=== PATIENT | female | born 1985 | race Caucasian/White ===

== ENCOUNTER 2018-09-30 06:10 | Inpatient (IN) | payer MEDICAID ==
[~2018-09-30] VITALS: Ht 160 cm; Wt 100.3 kg
[2018-09-30] VITALS (12 sets, daily range): BP systolic 110–129; BP diastolic 72–86; PULSE 96–135; RESP 14–21; Ht 160 cm; Wt 100.3 kg
[~2018-09-30 06:10] MED LIST: ACET-141 PO; ACET1TAB40 PO; NITR-58 PO; PNV1TABL43 PO
[2018-09-30] MEDS ORDERED: LACTATED RINGER'S 1,000 ML IV SCH ×2 (06:27→17:30)
[2018-09-30] MEDS ORDERED: CARBOPROST 250 MCG INJ IM PRN ×2 (06:30→10:00)
[2018-09-30] MEDS ORDERED: MISOPROSTOL 200 MCG TAB PR PRN ×2 (06:30→10:00)
[2018-09-30] MEDS ORDERED: OXYTOCIN 30 UNITS/LR 500 ML IV SCH ×2 (06:30→09:51)
[2018-09-30] MEDS ORDERED: CEFAZOLIN 2 GM/50 ML (PMX) 50 ML IVPB SCH (06:30)
[2018-09-30] MEDS ORDERED: METHYLERGONOVINE 0.2 MG INJ IM PRN ×2 (06:30→10:00)
[2018-09-30] MEDS ORDERED: OXYTOCIN 30 UNITS/LR 500 ML IV PRN ×2 (06:30→10:00)
[2018-09-30] MEDS ORDERED: DEXAMETHASONE 4 MG/ML 1 ML INJ ONE (07:00)
[2018-09-30] MEDS ORDERED: LIDOCAINE 2% (SDV) 5 ML INJ ONE (07:00)
[2018-09-30] MEDS ORDERED: ONDANSETRON 4 MG INJ ONE (07:00)
[2018-09-30] MEDS ORDERED: METOCLOPRAMIDE 10 MG INJ ONE ×2 (07:00→08:23)
[2018-09-30] MEDS ORDERED: SEVOFLURANE 15 MIN ONE (07:00)
--- NOTE | 2018-09-30 07:22 | PREAC ---
Date/Time of Note Date/Time of Note DATE: 09/30/18 TIME: 07:21 Anesthesia Eval and Record Evaluation Time Pre-Procedure Interview DATE: 09/30/18 TIME: 07:21 Age 33 Sex female NPO: 8 hrs Preoperative diagnosis repeat sterlization Planned procedure c section BTL Past Medical History Past Medical History: Includes GI: Obesity Surgery & Anesthesia Issues No known issue Meds Anticoagulation: No Beta Yasmin within 24 hr: No Reason Beta Yasmin not given: Pt. not on B-Yasmin Active Scripts Acetaminophen-Codeine* (Acetaminophen-Cod #3*) 300-30 Mg Tab, 1 TAB PO Q4H PRN for PAIN, #10 TAB Prov:MICHOACANO DENTON MD 12/14/14 Acetaminophen* (Acetaminophen*) 500 MG Extra Strength Tablet, 500-1000 MG PO Q6H PRN for PAIN AND OR ELEVATED TEMP, #20 TAB Prov:JOHN GASTELUM PA-C 12/09/14 Nitrofurantoin Monohyd Macrocr* (Macrobid*) 100 Mg Capsr, 100 MG PO BID for 7 Days, CAP Prov:JOHN GASTELUM PA-C 12/09/14 Reported Medications Vit/Fe Fumarate/Fa* ( Vitamin Tablet*) 1 Tab Tablet, 1 TAB PO DAILY 08/05/13 Current Medications Lactated Ringer's 1,000 ml @ 125 mls/hr Q8H IV ; Start 09/30/18 at 06:27 Cefazolin Sodium/ Dextrose 50 ml @ 100 mls/hr ONCE IVPB ; Start 09/30/18 at 06:30 Oxytocin/Lactated Ringer's 500 ml @ 125 mls/hr POST IV ; Start 09/30/18 at 06:30 Oxytocin/Lactated Ringer's 500 ml @ 0 mls/hr ONCE PRN IV .VAGINAL BLEEDING; Start 09/30/18 at 06:30 Methylergonovine Maleate (Methergine) 0.2 mg ONCE PRN IM .VAGINAL BLEEDING; Start 09/30/18 at 06:30 Carboprost Tromethamine (Hemabate) 250 mcg ONCE PRN IM .VAGINAL BLEEDING; Start 09/30/18 at 06:30 Misoprostol (Cytotec) 1,000 mcg ONCE PRN VT .VAGINAL BLEEDING; Start 3/25/19 at 06:30 Meds reviewed: Yes Allergies Coded Allergies: No Known Allergy (Unverified , 12/14/14) Allergies Reviewed: Yes Labs/Studies Labs Reviewed: Reviewed by anesthesiologist test: Positive Studies: ECG (n/a), CXR (n/a) Pre-procedure Exam Last vitals Vital Signs Date Temp Pulse Resp B/P (MAP) Pulse Ox O2 O2 Flow FiO2 Time Delivery Rate 09/30/18 98.2 96 16 119/82 Room Air 06:35 (94) Airway: Adequate mouth opening Mallampati: Mallampati I Teeth: Normal Lung: Normal Heart: Normal ASA Physical Status ASA physical status: 2 Emergency: None Planned Anesthetic Neuraxial: Epidural Pre-operative Attestations Prior to commencing anesthesia and surgery, the patient was re-evaluated, there was verification of: *The patient's identity *The results of appropriate recent lab work and preoperative vital signs *The above evaluation not changing prior to induction *Anesthetic plan, risk benefits, alternative and complications discussed with patient/family; questions answered; patient/family understands, accepts and wishes to proceed. CELINE OLVERA MD Sep 30, 2018 07:22
[2018-09-30] MEDS ORDERED: MEPERIDINE 25 MG INJ IV PRN (07:30)
[2018-09-30] MEDS ORDERED: KETOROLAC 30 MG INJ IV PRN ×2 (07:30→09:30)
[2018-09-30] MEDS ORDERED: DIPHENHYDRAMINE 50 MG INJ IV PRN ×4 (07:30→14:30)
[2018-09-30] MEDS ORDERED: morphine (1 MG/ML) 10ML SYRINGE IV PRN ×3 (07:30)
[2018-09-30] MEDS ORDERED: ONDANSETRON 4 MG INJ IV PRN ×4 (07:30→14:30)
[2018-09-30] MEDS ORDERED: morphine SULFATE/PF (10 MG/10 ML) INJ ONE (08:23)
[2018-09-30] MEDS ORDERED: NALOXONE (0.4 MG/ML) INJ IV PRN ×2 (09:30→14:30)
[2018-09-30] MEDS ORDERED: morphine 2 MG INJ IV PRN ×3 (09:30)
[2018-09-30] MEDS ORDERED: OXYTOCIN 30 UNITS/LR 500 ML IV ONE (09:40)
--- NOTE | 2018-09-30 09:51 | OPPN ---
Date/Time of Note Date/Time of Note DATE: 09/30/18 TIME: 09:43 Operative Report Planned Procedure Procedure date Sep 30, 2018 Procedure(s) repeat low transverse CD, bilateral tubal ligation (stanislaw method) , lysis of adhesions Performed by see signature line Credit Verifier: BENNIE ORNELAS MD 2nd Credit Verifier none Pre-procedure diagnosis iup at 39 wks ga, previous CD X 3 desire elective repeat CD with bilateral tubal ligation [id number] Anesthesia Type: Alnyw9y spinal Post-Procedure Post-procedure diagnosis same Findings a viable male 8/9 weight 8lb 7 oz. normal uterus tubes and ovaries. adhesion between anterior uterus and omentum Estimated Blood Loss: 500 - 600 mls (500) Specimen(s) portion of the right and left fallopian tube Grafts/Implant(s) none Complication(s) none SADI CHAPARRO MD Sep 30, 2018 09:50
[2018-09-30] MEDS ORDERED: NACL 0.9% 3 ML SYG IV SCH (10:00)
[2018-09-30] MEDS ORDERED: OXYCODONE/ACETAMINOPHEN (5/325) TAB PO PRN ×2 (10:00)
[2018-09-30] MEDS ORDERED: LANOLIN HPA 1 PKT TOP PRN (10:00)
[2018-09-30] MEDS ORDERED: morphine 4 MG/ML VIAL ONE (10:47)
[2018-09-30] MEDS ORDERED: IOHEXOL 14.3 MG(I)/ML (ADULT) BTL PO ONE (11:00)
[2018-09-30] MEDS ORDERED: METHYLENE BLUE 50 MG/10 ML AMPUL IV STA (11:19)
[2018-09-30] MEDS ORDERED: ETOMIDATE 20 MG INJ ONE (11:40)
[2018-09-30] MEDS ORDERED: SUCCINYLCHOLINE CHLORIDE 100 MG/5 ML SYG IV ONE (11:40)
[2018-09-30] MEDS ORDERED: FENTAnyl 50 MCG/ML VIAL ONE (11:47)
[2018-09-30] MEDS ORDERED: ROPIVACAINE 0.5 % 30 ML VIAL ONE (12:41)
--- NOTE | 2018-09-30 13:03 | PREAC ---
Date/Time of Note Date/Time of Note DATE: 09/30/18 TIME: 13:01 Anesthesia Eval and Record Evaluation Time Pre-Procedure Interview DATE: 09/30/18 TIME: 1140 PT RUSHED TO OR IN EMERGENT SITUATION, preop eval completed after patient regained hemodynamic stability Age 33 Sex female NPO: 8 hrs Preoperative diagnosis POST OP HEMORRHAGE Planned procedure EMERGENT EXPLORATORY LAPAROTOMY Past Medical History Past Medical History: Includes Cardio: Other (SEVERE HYPOTENSION) Renal: Other (HEMATURIA IN POST-OP MILLER CATHETER) Heme: Anemia Surgery & Anesthesia Issues Hx of difficult intubation, Significant blood loss Meds Anticoagulation: No Beta Yasmin within 24 hr: No Reason Beta Yasmin not given: Pt. not on B-Yasmin Active Scripts Acetaminophen-Codeine* (Acetaminophen-Cod #3*) 300-30 Mg Tab, 1 TAB PO Q4H PRN for PAIN, #10 TAB Prov:MICHOACANO DENTON MD 12/14/14 Acetaminophen* (Acetaminophen*) 500 MG Extra Strength Tablet, 500-1000 MG PO Q6H PRN for PAIN AND OR ELEVATED TEMP, #20 TAB Prov:JOHN GASTELUM PA-C 12/09/14 Nitrofurantoin Monohyd Macrocr* (Macrobid*) 100 Mg Capsr, 100 MG PO BID for 7 Days, CAP Prov:JOHN GASTELUM PA-C 12/09/14 Reported Medications Vit/Fe Fumarate/Fa* ( Vitamin Tablet*) 1 Tab Tablet, 1 TAB PO DAILY 08/05/13 Current Medications Lactated Ringer's 1,000 ml @ 125 mls/hr Q8H IV ; Start 09/30/18 at 06:27 Cefazolin Sodium/ Dextrose 50 ml @ 100 mls/hr ONCE IVPB ; Start 09/30/18 at 06:30 Oxytocin/Lactated Ringer's 500 ml @ 125 mls/hr POST IV ; Start 09/30/18 at 06:30 Naloxone HCl (Narcan) 0.1 mg Q2M PRN IV .RESP RATE; Start 09/30/18 at 09:30; Stop 10/01/18 at 09:29 Ketorolac Tromethamine (Toradol) 30 mg Q6H PRN IV PAIN AFTER CSECTION; Start 09/30/18 at 09:30; Stop 10/01/18 at 09:29 Morphine Sulfate (morphine) 3 mg Q3 PRN IV .BREAKTHROUGH PAIN; Start 09/30/18 at 09:30; Stop 10/01/18 at 09:29 Morphine Sulfate (morphine) 2 mg Q3H PRN IV .PAIN 1-5; Start 09/30/18 at 09:30; Stop 10/01/18 at 09:29 Morphine Sulfate (morphine) 4 mg Q3H PRN IV .PAIN 6-10; Start 09/30/18 at 09:30; Stop 10/01/18 at 09:29 Diphenhydramine HCl (Benadryl) 25 mg Q6H PRN IV .ITCHING; Start 09/30/18 at 09:30; Stop 10/01/18 at 09:29 Ondansetron HCl (Zofran Inj) 4 mg Q6H PRN IV .NAUSEA/VOMITING; Start 09/30/18 at 09:30; Stop 10/01/18 at 09:29 IV Flush (NS 3 ml) 3 ml PER PROTOCOL IV ; Start 09/30/18 at 10:00 Cefazolin Sodium/ Dextrose 50 ml @ 100 mls/hr Q8H IVPB ; Start 09/30/18 at 15:00; Stop 10/01/18 at 07:29 Oxytocin/Lactated Ringer's 500 ml @ 50 mls/hr Q10H IV ; Start 09/30/18 at 09:51; Stop 09/30/18 at 19:50 Oxycodone/ Acetaminophen (Percocet (5/ 325)) 1 tab Q4H PRN PO .PAIN 4-6; Start 09/30/18 at 10:00 Oxycodone/ Acetaminophen (Percocet (5/ 325)) 2 tab Q4H PRN PO .PAIN 7-10; Start 09/30/18 at 10:00 Ibuprofen (Motrin) 600 mg Q6 PO ; Start 10/01/18 at 12:00 Simethicone (Mylicon) 160 mg Q8H PRN PO .GAS; Start 09/30/18 at 10:00 Lanolin (Lanolin Hpa) 1 applic BEDSIDE MEDICATION PRN TOP .NIPPLES; Start 09/30/18 at 10:00 Oxytocin/Lactated Ringer's 500 ml @ 0 mls/hr ONCE PRN IV .VAGINAL BLEEDING; Start 09/30/18 at 10:00 Methylergonovine Maleate (Methergine) 0.2 mg ONCE PRN IM .VAGINAL BLEEDING; Start 09/30/18 at 10:00 Carboprost Tromethamine (Hemabate) 250 mcg ONCE PRN IM .VAGINAL BLEEDING; Start 09/30/18 at 10:00 Misoprostol (Cytotec) 1,000 mcg ONCE PRN NC .VAGINAL BLEEDING; Start 09/30/18 at 10:00 Meds reviewed: Yes Allergies Coded Allergies: No Known Allergy (Unverified , 12/14/14) Allergies Reviewed: Yes Labs/Studies Labs Reviewed: Reviewed by anesthesiologist Result Diagram: 09/30/18 1113 Laboratory Tests 09/30/18 11:13 Blood Bank Test 09/30/18 06:58 Antibody Screen NEGATIVE Blood Product Summary Counts Blood Type O POSITIVE Crossmatch Red Blood Cells Rh Immune Globulin Candidate NO test: Negative Pre-procedure Exam Last vitals Vital Signs Date Temp Pulse Resp B/P (MAP) Pulse Ox O2 O2 Flow FiO2 Time Delivery Rate 09/30/18 98.2 96 16 119/82 Room Air 06:35 (94) Airway: Adequate mouth opening, Adequate thyromental dist Mallampati: Mallampati III Teeth: Normal Lung: Normal Heart: Normal ASA Physical Status ASA physical status: 3 Emergency: E Planned Anesthetic General/MAC: ETT Planned Pain Management Single shot nerve block, Parenteral pain med, Other neuraxial med Pre-operative Attestations Prior to commencing anesthesia and surgery, the patient was re-evaluated, there was verification of: *The patient's identity *The results of appropriate recent lab work and preoperative vital signs *The above evaluation not changing prior to induction *Anesthetic plan, risk benefits, alternative and complications discussed with patient/family; questions answered; patient/family understands, accepts and wishes to proceed. ALEX ALVARADO MD Sep 30, 2018 13:03
[2018-09-30] MEDS ORDERED: CIPROFLOXACIN 400MG/D5W 200 ML IVPB ONE (13:30)
--- NOTE | 2018-09-30 13:41 | OPPN ---
Date/Time of Note Date/Time of Note DATE: 09/30/18 TIME: 13:36 Operative Report Planned Procedure Procedure date Sep 30, 2018 Procedure(s) exploratory laparotomy, evacuation of left broad ligament hematoma, bladder perforation repair Performed by see signature line Steam Hammer Operator: BENNIE ORNELAS MD 2nd Steam Hammer Operator Intraoperative urology consult with Dr. Allen Anesthesiologist: ALEX ALVARADO MD Pre-procedure diagnosis s/p cd X 4 with btl, hematuria, unstable vital size, concerned for internal bleeding [id number] Anesthesia Type: [id number] general Post-Procedure Post-procedure diagnosis same Findings Large left broad ligament hematoma with bladder perforation Estimated Blood Loss: 500 - 600 mls (500) Specimen(s) none Grafts/Implant(s) none Complication(s) none SADI CHAPARRO MD Sep 30, 2018 13:41
--- NOTE | 2018-09-30 14:21 | OPR ---
Date/Time of Note Date/Time of Note DATE: 09/30/18 TIME: 14:14 Operative Report Procedure Date: Sep 30, 2018 Preoperative Diagnosis Bladder injury during Postoperative Diagnosis Same Operation/Procedure Performed Cystorrhaphy Surgeon see signature line Plycor Operator DR Velásquez and Dr ORNELAS Anesthesia Type: general Anesthesiologist: ALEX ALVARADO MD Estimated Blood Loss: other (As per the continuous improvement manager's) Transfusion none Specimen None Grafts/Implants none Complications none Pt Condition Post Procedure: stable Indications Bladder injury during Procedure Description I was called to the operating room in the labor and delivery because this patient has undergone a earlier today and she was bleeding and her Fol ey catheter. She was taken back to the operating room and a big hematoma was evacuated and I was called to check her bladder because she was having bleeding in her Norton catheter and instillation of indigo carmine in the bladder did extravasate in the operative field. Upon inspection of the bladder the opening was visualized. Allises clamps were put on the edges. I put my finger and felt the balloon inside the bladder. Then I did close the opening using 2-0 Vicryl running interlocked suture as a first layer and 2-0 Vicryl [id number] interrupted sutures. I did free the bladder from the adhesions to the uterus posteriorly. Then the rest of the procedure and the closure was done by the obstetricians. The patient was transferred back to the ICU in a stable condition. FAYE CALHOUN MD Sep 30, 2018 14:21
[2018-09-30] MEDS ORDERED: LEVALBUTEROL (NEB) 1.25 MG/0.5 ML AMP HHN PRN (14:30)
[2018-09-30] MEDS ORDERED: FENTAnyl 50 MCG/ML VIAL IV PRN ×2 (14:30)
[2018-09-30] MEDS ORDERED: ZOLPIDEM 5 MG TAB PO PRN (14:30)
[2018-09-30] MEDS ORDERED: ALBUMIN HUMAN 5% 250 ML IV PRN (14:30)
[2018-09-30] MEDS ORDERED: MIDAZOLAM 1 MG/ML 2 ML INJ IV PRN (14:30)
[2018-09-30] MEDS ORDERED: ACETAMINOPHEN 500 MG TAB PO PRN (14:30)
[2018-09-30] MEDS ORDERED: IPRATROPIUM (NEB) 0.5 MG/2.5 ML AMP HHN PRN (14:30)
[2018-09-30] MEDS ORDERED: HYDROmorphONE 0.5 MG/0.5 ML SYG IV PRN ×5 (14:30)
[2018-09-30] MEDS: CEFAZOLIN 2 GM/50 ML (PMX) 50 ML IVPB SCH (15:02)
--- NOTE | 2018-09-30 15:08 | NSTRPT ---
NST Information Datetime Report Generated by CPN: 09/30/2018 15:08 Datetime: 09/26/2018 13:43 NST Information EGA: 38.5 Test Number: 6 Time on Monitor: 09/26/2018 14:29 Time off Monitor: 09/26/2018 14:52 NST Duration (Min): 23 Reason for NST: Other Reason for NST Other: Advanced maternal age Test and Monitor Explained: Monitor Explained; Test Explained; Verbalized Understanding Pulse: 96 Resp: 18 SBP: 109 DBP: 69 Test Evaluation NST Interventions: None Patient States Movement: Present Contraction Frequency: none FHR Baseline : 140 Variability: Moderate 6-25bpm Accelerations: 15X15 Decelerations: None FHR Category: Category I NST Results: Reactive Comments: To [facility]/S. SLIM 12.7. BREECH Pt scheduled for CS 09/30 Electronically Signed By E-Signature: with User ID: [id number] Datetime: 09/23/2018 13:54 NST Information EGA: 38.2 NST Duration (Min): 35 Datetime: 09/19/2018 14:34 NST Information EGA: 37.5 NST Duration (Min): 28 Datetime: 09/16/2018 14:31 NST Information EGA: 37.2 NST Duration (Min): 28 Datetime: 09/12/2018 14:45 NST Information EGA: 36.5 NST Duration (Min): 35 Datetime: 09/02/2018 14:36 NST Information EGA: 35.2 NST Duration (Min): 42 Datetime: 08/29/2018 15:07 NST Information EGA: 34.5 NST Duration (Min): 35 Datetime: 08/29/2018 15:00 NST Duration (Min): 36
--- NOTE | 2018-09-30 16:49 | PAC ---
Date/Time of Note Date/Time of Note DATE: 09/30/18 TIME: 16:49 Post-Anesthesia Notes Post-Anesthesia Note Last documented vital signs Vital Signs Date Temp Pulse Resp B/P (MAP) Pulse Ox O2 O2 Flow FiO2 Time Delivery Rate 09/30/18 98.1 114 14 129/78 96 16:00 (95) 09/30/18 Mask 10.0 14:00 Activity: WNL Respiratory function: WNL Cardiovascular function: WNL Mental status: Baseline Pain reasonably controlled: Yes Hydration appropriate: Yes Nausea/Vomiting absent: Yes ALEX ALVARADO MD Sep 30, 2018 16:49
--- NOTE | 2018-09-30 17:48 | CONS ---
Assessment/Plan Assessment/Plan Assessment/Plan (Daily) Assessment and plan: 33-year female status post and tubal ligation with subsequent postop hematuria earlier today, status post surgical bladder repair. #Postop hematuria: Again secondary to bladder laceration status post postop bladder repair by urologist working with [employer] doctor in the OR -Monitor for any further hematuria, CBC daily -Follow-up postop recommendations from urology and [employer] team # and tubal ligation: Occurred earlier today, see above for the occurring postop complications. Now improving, came to the ICU on oxytocin drip which will likely be discontinued upon discussion with ICU nurse and [employer] team -Monitor vital signs very carefully for now, postop care per primary team [employer] recommendations including pain control medications, labs, etc. We will continue to follow along with you Critical care time spent on patient care today equals 45 minutes Consultation Date/Type/Reason Admit Date/Time Sep 30, 2018 at 06:10 Type of Consult Medical Reason for Consultation Postop hematuria Date/Time of Note DATE: 09/30/18 TIME: 17:25 Hx of Present Illness 33-year female past medical history of x4 including most recent C- section and tubal ligation performed earlier today, who has been admitted to ICU after postop bleeding and hematuria. Most of the information is obtained upon discussion with the primary [employer] team as patient is presently unable to provide full H PI at this time. Apparently after the and tubal ligation, patient had hematuria and low blood pressure. Patient was also apparently tachycardic afterwards so the decision was made by the [employer] team to take the patient back in to the OR for exploratory laparotomy. Here they found a bladder laceration and urology team was called to assist in the OR and they performed Cystorrhaphy (bladder repair). Patient is presently in the intensive care unit on oxytocin drip, but this likely will be stopped now since the source of the bleed is apparently from the bladder. Of note patient also received 2 unit PRBC transfusion earlier today as well. Past Medical History Medical History: no pertinent history Home Meds Active Scripts Acetaminophen-Codeine* (Acetaminophen-Cod #3*) 300-30 Mg Tab, 1 TAB PO Q4H PRN for PAIN, #10 TAB Prov:MICHOACANO DENTON MD 12/14/14 Acetaminophen* (Acetaminophen*) 500 MG Extra Strength Tablet, 500-1000 MG PO Q6H PRN for PAIN AND OR ELEVATED TEMP, #20 TAB Prov:JOHN GASTELUM PA-C 12/09/14 Nitrofurantoin Monohyd Macrocr* (Macrobid*) 100 Mg Capsr, 100 MG PO BID for 7 Days, CAP Prov:JOHN GASTELUM PA-C 12/09/14 Reported Medications Vit/Fe Fumarate/Fa* ( Vitamin Tablet*) 1 Tab Tablet, 1 TAB PO DAILY 08/05/13 Medications Current Medications Cefazolin Sodium/ Dextrose 50 ml @ 100 mls/hr ONCE IVPB ; Start 09/30/18 at 06:30 Naloxone HCl (Narcan) 0.1 mg Q2M PRN IV .RESP RATE; Start 09/30/18 at 09:30; Stop 10/01/18 at 09:29 Ketorolac Tromethamine (Toradol) 30 mg Q6H PRN IV PAIN AFTER CSECTION; Start 09/30/18 at 09:30; Stop 10/01/18 at 09:29 Diphenhydramine HCl (Benadryl) 25 mg Q6H PRN IV .ITCHING; Start 09/30/18 at 09:30; Stop 10/01/18 at 09:29 Ondansetron HCl (Zofran Inj) 4 mg Q6H PRN IV .NAUSEA/VOMITING; Start 09/30/18 at 09:30; Stop 10/01/18 at 09:29 IV Flush (NS 3 ml) 3 ml PER PROTOCOL IV ; Start 09/30/18 at 10:00 Cefazolin Sodium/ Dextrose 50 ml @ 100 mls/hr Q8H IVPB Last administered on 09/30/18at 15:02; Admin Dose 100 MLS/HR; Start 09/30/18 at 15:00; Stop 10/01/18 at 07:29 Ibuprofen (Motrin) 600 mg Q6 PO ; Start 10/01/18 at 12:00 Simethicone (Mylicon) 160 mg Q8H PRN PO .GAS; Start 09/30/18 at 10:00 Lanolin (Lanolin Hpa) 1 applic BEDSIDE MEDICATION PRN TOP .NIPPLES; Start 09/30/18 at 10:00 Oxytocin/Lactated Ringer's 500 ml @ 0 mls/hr ONCE PRN IV .VAGINAL BLEEDING; Start 09/30/18 at 10:00 Methylergonovine Maleate (Methergine) 0.2 mg ONCE PRN IM .VAGINAL BLEEDING; Start 09/30/18 at 10:00 Carboprost Tromethamine (Hemabate) 250 mcg ONCE PRN IM .VAGINAL BLEEDING; Start 09/30/18 at 10:00 Misoprostol (Cytotec) 1,000 mcg ONCE PRN IN .VAGINAL BLEEDING; Start 09/30/18 at 10:00 Naloxone HCl (Narcan) 0.2 mg PRN PRN IV RR < 8; Start 09/30/18 at 14:30 Hydromorphone HCl (Dilaudid HEAD IRRIGATOR) Q4PCA IV ; Start 09/30/18 at 14:30 Acetaminophen (Tylenol Tab) 500 mg Q4H PRN PO PAIN LEVEL 1-5; Start 09/30/18 at 14:30 Acetaminophen/ Hydrocodone Bitart ([place] (5/325)) 1 tab Q4H PRN PO PAIN LEVEL 1-5; Start 09/30/18 at 14:30 Hydromorphone HCl (Dilaudid) 0.2 mg Q4H PRN IV PAIN LEVEL 1-5; Start 09/30/18 at 14:30 Hydromorphone HCl (Dilaudid) 0.4 mg Q4H PRN IV PAIN LEVEL 6-10; Start 09/30/18 at 14:30 Ondansetron HCl (Zofran Inj) 4 mg Q6H PRN IV NAUSEA AND/OR VOMITING; Start 09/30/18 at 14:30 Zolpidem Tartrate (Ambien) 5 mg HS MAY REPEAT X 1 PRN PO .INSOMNIA; Start 09/30/18 at 14:30 Diphenhydramine HCl (Benadryl) 25 mg Q6H PRN IV .ITCHING; Start 09/30/18 at 14:30 Allergies: Coded Allergies: No Known Allergy (Unverified , 12/14/14) Past Surgical History Past Surgical Hx: other ( x4, tubal ligation) Social History Alcohol Use: none Smoking Status: Never smoker Drug Use: none Exam/Review of Systems Exam Vitals Vital Signs Date Temp Pulse Resp B/P (MAP) Pulse Ox O2 O2 Flow FiO2 Time Delivery Rate 09/30/18 98.1 114 14 129/78 96 16:00 (95) 09/30/18 Mask 10.0 14:00 Exam GENERAL: lying in bed, NAD HEENT: Pupils equal, round, reactive to light. Extraocular muscles intact. NECK: Supple. No thyromegaly. LUNGS: Clear to auscultation bilaterally. CARDIOVASCULAR: S1 and S2 heard. No rubs or gallops. ABDOMEN: Soft, nondistended. Slightly decreased bowel sounds, bandages in place. MUSCULOSKELETAL: No lower extremity edema bilaterally. NEUROLOGIC: No focal deficits. Results Result Diagram: 09/30/18 1641 Results 24hrs Laboratory Tests Test 09/30/18 06:58 09/30/18 11:13 09/30/18 16:41 White Blood Count 11.7 #H 18.6 #H 18.9 H Red Blood Count 3.94 L 3.07 #L 3.18 L Hemoglobin 12.1 9.5 #L 9.8 L Hematocrit 36.8 L 29.2 #L 29.7 L Mean Corpuscular Volume 93.4 95.1 93.4 Mean Corpuscular Hemoglobin 30.7 30.9 30.8 Mean Corpuscular Hemoglobin Concent 32.9 32.5 33.0 Red Cell Distribution Width 13.6 13.4 13.9 Platelet Count 307 322 176 # Mean Platelet Volume 10.3 # 9.7 10.7 H Immature Granulocytes % 1.600 H 1.600 H 1.300 H Neutrophils % 68.2 75.6 81.8 H Lymphocytes % 19.8 14.7 L 8.5 L Monocytes % 8.2 7.2 8.0 Eosinophils % 1.7 0.6 0.1 Basophils % 0.5 0.3 0.3 Nucleated Red Blood Cells % 0.0 0.0 0.0 Immature Granulocytes # 0.190 H 0.290 H 0.250 H Neutrophils # 8.0 H 14.0 H 15.4 H Lymphocytes # 2.3 2.7 1.6 Monocytes # 1.0 H 1.3 H 1.5 H Eosinophils # 0.2 0.1 0.0 Basophils # 0.1 0.1 0.1 Nucleated Red Blood Cells # 0.0 0.0 0.0 Prothrombin Time 11.9 Prothrombin Time Ratio 0.9 INR International Normalized Ratio 0.87 Activated Partial Thromboplast Time 27.3 Hepatitis B Surface Antigen NEGATIVE Medications Medication Current Medications Cefazolin Sodium/ Dextrose 50 ml @ 100 mls/hr ONCE IVPB ; Start 09/30/18 at 06:30 Naloxone HCl (Narcan) 0.1 mg Q2M PRN IV .RESP RATE; Start 09/30/18 at 09:30; Stop 10/01/18 at 09:29 Ketorolac Tromethamine (Toradol) 30 mg Q6H PRN IV PAIN AFTER CSECTION; Start 09/30/18 at 09:30; Stop 10/01/18 at 09:29 Diphenhydramine HCl (Benadryl) 25 mg Q6H PRN IV .ITCHING; Start 09/30/18 at 09:30; Stop 10/01/18 at 09:29 Ondansetron HCl (Zofran Inj) 4 mg Q6H PRN IV .NAUSEA/VOMITING; Start 09/30/18 at 09:30; Stop 10/01/18 at 09:29 IV Flush (NS 3 ml) 3 ml PER PROTOCOL IV ; Start 09/30/18 at 10:00 Cefazolin Sodium/ Dextrose 50 ml @ 100 mls/hr Q8H IVPB Last administered on 09/30/18at 15:02; Admin Dose 100 MLS/HR; Start 09/30/18 at 15:00; Stop 10/01/18 at 07:29 Ibuprofen (Motrin) 600 mg Q6 PO ; Start 10/01/18 at 12:00 Simethicone (Mylicon) 160 mg Q8H PRN PO .GAS; Start 09/30/18 at 10:00 Lanolin (Lanolin Hpa) 1 applic BEDSIDE MEDICATION PRN TOP .NIPPLES; Start 09/30/18 at 10:00 Oxytocin/Lactated Ringer's 500 ml @ 0 mls/hr ONCE PRN IV .VAGINAL BLEEDING; Start 09/30/18 at 10:00 Methylergonovine Maleate (Methergine) 0.2 mg ONCE PRN IM .VAGINAL BLEEDING; Start 09/30/18 at 10:00 Carboprost Tromethamine (Hemabate) 250 mcg ONCE PRN IM .VAGINAL BLEEDING; Start 09/30/18 at 10:00 Misoprostol (Cytotec) 1,000 mcg ONCE PRN IN .VAGINAL BLEEDING; Start 09/30/18 at 10:00 Naloxone HCl (Narcan) 0.2 mg PRN PRN IV RR < 8; Start 09/30/18 at 14:30 Hydromorphone HCl (Dilaudid HEAD IRRIGATOR) Q4PCA IV ; Start 09/30/18 at 14:30 Acetaminophen (Tylenol Tab) 500 mg Q4H PRN PO PAIN LEVEL 1-5; Start 09/30/18 at 14:30 Acetaminophen/ Hydrocodone Bitart ([place] (5/325)) 1 tab Q4H PRN PO PAIN LEVEL 1-5; Start 09/30/18 at 14:30 Hydromorphone HCl (Dilaudid) 0.2 mg Q4H PRN IV PAIN LEVEL 1-5; Start 09/30/18 at 14:30 Hydromorphone HCl (Dilaudid) 0.4 mg Q4H PRN IV PAIN LEVEL 6-10; Start 09/30/18 at 14:30 Ondansetron HCl (Zofran Inj) 4 mg Q6H PRN IV NAUSEA AND/OR VOMITING; Start 09/30/18 at 14:30 Zolpidem Tartrate (Ambien) 5 mg HS MAY REPEAT X 1 PRN PO .INSOMNIA; Start 09/30/18 at 14:30 Diphenhydramine HCl (Benadryl) 25 mg Q6H PRN IV .ITCHING; Start 09/30/18 at 14:30 YOANDY OSORIO Sep 30, 2018 17:37
--- NOTE | 2018-09-30 23:26 | OPR ---
DATE OF OPERATION: 09/30/2018 PRIMARY DIAGNOSES: 1. Status post section with bilateral tubal ligation. 2. Hematuria. 3. Unstable vital signs. 4. Concern for internal bleeding. POSTOPERATIVE DIAGNOSES: 1. Status post section with bilateral tubal ligation. 2. Hematuria. 3. Unstable vital signs. 4. Concern for internal bleeding. PROCEDURE: Exploratory laparotomy, evacuation of the left broad ligament hematoma, bladder perforati on repair. MOLD CARPENTER: Dr. Nolasco INTRAOPERATIVE UROLOGY CONSULTATION: Dr. Arthur Henderson ANESTHESIA: General. COMPLICATION: None. ANESTHESIOLOGIST: Dr. Hewitt ESTIMATED BLOOD LOSS: 500 mL INDICATION: The patient had recently undergone a repeat delivery with bilateral tubal ligat ion. Postoperatively, patient was observed to have hematuria in her Norton, and hypotension was also noted with concern for internal bleeding, and patient taken to the operating room for exploratory lap arotomy. FINDINGS: A large left broad ligament hematoma extending from the anterior uterus to the posterior u terus with perforation of the bladder. DESCRIPTION OF PROCEDURE: After explaining the risks, benefits, indications and alternatives of the procedure were reviewed with the patient, an informed consent was obtained. The patient was taken to the operating room with IV running and Norton catheter in place. The patient received 2 units of pac ked RBC intraoperatively. The patient was placed in a supine position, given general anesthesia, pre pared and draped in a usual sterile fashion. Her previous Pfannenstiel incision was opened by cutting the Insorb staple stitches with Shukla scissor s. Similarly, the fascia was reopened and the uterus was brought for inspection as findings noted ab ove. The hematoma was carefully evacuated, and the myometrial and serosal layers were reapproximated with 0 Monocryl in a running locked fashion. Good hemostasis was noted. At this point, methylene b lue was injected via the Norton where oozing from the bladder was noted. Urologist's consult was kolton giles. Dr. Henderson repaired the bladder perforation and his operative report is to follow. Again, go od hemostasis was noted. All counts were correct at this time. Fibrillar was applied to the anterior lower uterine segment. The peritoneum and rectus abdominis muscles were then reapproximated with 2-0 Vicryl. The fascia was reapproximated with 0 Vicryl in a running fashion. The subcutaneous tissue was reapproximated with 2-0 plain gut in a running fashion. The skin was closed with carley. The patient was then extubate d and was taken to ICU for close monitoring in awake and stable condition. Dictated By: SADI DIOR/STEVE Conf#: [id number] DID#: [id number] CC: Dr. Nolasco;*EndCC*
--- NOTE | 2018-09-30 23:30 | OPR ---
DATE OF OPERATION: 09/30/2018 PREOPERATIVE DIAGNOSES: Intrauterine at 39 weeks gestational age, previous x3, d esires elective repeat delivery with bilateral tubal ligation. POSTOPERATIVE DIAGNOSES: Intrauterine at 39 weeks gestational age, previous x3, desires elective repeat delivery with bilateral tubal ligation. OPERATION PERFORMED: Repeat low transverse delivery via Pfannenstiel incision with bilatera l tubal ligation, Brea method with lysis of adhesions. SURGEON: Rajinder Velásquez MD TRADES HELPER: Dr. Nolasco ANESTHESIA: Spinal. COMPLICATIONS: None. ESTIMATED BLOOD LOSS: 500 mL. FINDINGS: A viable male, 8 and 9 respectively at 1 and 5 minutes, weight 8 pounds 7 ounces. N ormal uterus, tubes, and ovaries. Positive adhesions between the anterior uterus and omentum. SPECIMEN: Portion of the right and left fallopian tube. DESCRIPTION OF PROCEDURE: After explaining the risks, benefits and alternatives, the patient had con sent signed in chart. The patient was taken to the operating room where spinal anesthesia was found to be adequate. She was then prepared and draped in normal sterile fashion in dorsal supine position with a leftward tilt. A Pfannenstiel skin incision was made with a scalpel and carried to the under lying of the fascia. The fascia was incised in midline and the incision was extended laterally with Shukla scissors. The superior aspect of the fascial incision was grasped with curved clamps, elevated and the underlying rectus muscles dissected off. In a similar fashion, the inferior aspect of the in cision was grasped with curved clamps, elevated and the rectus muscles was dissected off. The rectus muscle was then in midline and the peritoneum identified, tented up, and sharply with Vermillion enbaum scissors. The peritoneal incision was then extended superiorly and inferiorly. The omentum w as carefully dissected off the anterior uterus with sharp dissection. Good hemostasis was noted. Th e bladder blade was then inserted and the vesicouterine peritoneum identified, grasped with pickups a nd sharply with Metzenbaum scissors. This incision was extended laterally and the bladder flap creat ed digitally. The bladder blade was then reinserted and the lower uterine segment incised in transve rse fashion with the scalpel. The uterine incision was extended laterally. The bladder blade was re moved and the infant's head delivered atraumatically. The nose and mouth were suctioned and cord cla mped and cut. The was handed off to waiting olive grower. The placenta was then removed. Th e uterus was exteriorized and cleared of all clots and debris. The uterine incision was repaired wit h 1-0 chromic in a running locked fashion. A second layer of same suture was used for imbrication an d obtained excellent hemostasis. At this point, the patient's left fallopian tube was grasped with a Bolt and approximately 4 cm fr om the cornual region, a 3 cm of the tube was ligated with a free tie of plain gut x2 and excised. G ood hemostasis was noted. Similarly, the right fallopian tube was ligated and good hemostasis was no robbin. Excellent hemostasis was noted. The uterus was returned to the abdomen. The gutters were giovanna red of all clots. Before closing the peritoneum, the Norton was clear. The peritoneum and rectus abd ominis muscles were then reapproximated with 2-0 Vicryl in interrupted fashion. The fascia was reapp roximated with 0 Vicryl in a running fashion. The subcutaneous tissue was reapproximated with 2-0 pl ain gut in a running fashion. The skin was closed with absorbable carley. The patient tolerated pr ocedure well. All counts were correct. The patient was taken to recovery room in stable condition. Dictated By: RAJINDER DIOR/STEVE Conf#: [id number] DID#: [id number]
[2018-10-01] VITALS (45 sets, daily range): BP systolic 107–140; BP diastolic 60–84; PULSE 120–136; RESP 16–46
--- NOTE | 2018-10-01 01:06 | QN ---
Documentation Comment Progress note pod 1 ICU patient seen and evaluated in supine position no complaints aao X 3 vs t 98 p 124 r 20 bp 126/76 O2 96 rey clear to gravity heent positive ng tube lung cta b/l ab dressing clean/ dry, mild distention, appropriate tenderness extremity +2 pitting edema no calf tenderness ve no active bleeding a/ s/p repeat CD wit btl, exploratory laparotomy evacution of uterine hematoma and bladder perforation repair POD 1 stable afebrile p/ continue to monitor patient closely repeat labs in SADI CHAPARRO MD Oct 01, 2018 01:06
[2018-10-01] MEDS: CEFAZOLIN 2 GM/50 ML (PMX) 50 ML IVPB SCH ×2 (01:28→06:45)
[2018-10-01] MEDS ORDERED: ALBUMIN HUMAN 25% 100 ML IV ONE (02:00)
[2018-10-01] MEDS: LACTATED RINGER'S 1,000 ML IV SCH ×2 (02:23→16:31)
[2018-10-01] MEDS: HYDROmorphONE 0.2 MG/ML PCA IV SCH ×2 (02:48→16:58)
--- NOTE | 2018-10-01 08:03 | PAC ---
Date/Time of Note Date/Time of Note DATE: 10/01/18 TIME: 08:02 Post-Anesthesia Notes Post-Anesthesia Note Last documented vital signs Vital Signs Date Temp Pulse Resp B/P (MAP) Pulse Ox O2 O2 Flow FiO2 Time Delivery Rate 10/01/18 18 06:54 10/01/18 98.6 130 18 121/69 94 06:45 (86) 10/01/18 Room Air 05:00 10/01/18 98.7 04:00 09/30/18 10.0 14:00 Activity: WNL Respiratory function: WNL Cardiovascular function: WNL Mental status: Baseline Pain reasonably controlled: Yes Hydration appropriate: Yes Nausea/Vomiting absent: No CELINE OLVERA MD Oct 01, 2018 08:03
--- NOTE | 2018-10-01 08:05 | OPPN ---
Date/Time of Note Date/Time of Note DATE: 10/01/18 TIME: 08:03 Anesthesia Follow up Anesthesia Follow up Last documented vital signs Vital Signs Date Temp Pulse Resp B/P (MAP) Pulse Ox O2 O2 Flow FiO2 Time Delivery Rate 10/01/18 18 06:54 10/01/18 130 121/69 94 06:45 (86) 10/01/18 Room Air 05:00 10/01/18 98.7 04:00 09/30/18 10.0 14:00 Respiratory function: WNL Cardiovascular function: WNL Comments A 33 year female s/p sspinal duramorph POD#1 is fine. No pain, itching, N/V, neural deficit, headache. care per surgery CELINE OLVERA MD Oct 01, 2018 08:05
--- NOTE | 2018-10-01 10:25 | CONS ---
Consult Date/Type/Reason Admit Date/Time Sep 30, 2018 at 06:10 Initial Consult Date Date/Time of Note DATE: 10/01/18 TIME: 10:18 Subjective No signs of any bleeding overnight. Patient tachycardic but denies chest pain. On Dilaudid pump but having minimal pain symptoms. Objective Vitals Vital Signs Date Temp Pulse Resp B/P (MAP) Pulse Ox O2 O2 Flow FiO2 Time Delivery Rate 10/01/18 136 21 128/73 96 Room Air 09:30 (91) 10/01/18 99.4 07:30 09/30/18 10.0 14:00 Intake and Output 09/30/18 09/30/18 10/01/18 1515:00 23:00 07:00 IntakeIntake Total 75 ml 1400 ml 710 ml OutputOutput Total 1100 ml 600 ml 625 ml BalanceBalance -1025 ml 800 ml 85 ml Exam GENERAL: lying in bed, NAD, NG tube in place but clamped HEENT: Pupils equal, round, reactive to light. Extraocular muscles intact. NECK: Supple. No thyromegaly. LUNGS: Clear to auscultation bilaterally. CARDIOVASCULAR: S1 and S2 heard, tachycardic heart rate ABDOMEN: Soft, nondistended. Slightly decreased bowel sounds, bandages in place. MUSCULOSKELETAL: No lower extremity edema bilaterally. NEUROLOGIC: No focal deficits. Results/Medications Result Diagram: 10/01/18 0304 10/01/18 0304 Results 24 hrs Laboratory Tests Test 09/30/18 11:13 09/30/18 16:41 10/01/18 03:04 10/01/18 05:12 White Blood Count 18.6 #H 18.9 H 17.6 H Red Blood Count 3.07 #L 3.18 L 2.92 L Hemoglobin 9.5 #L 9.8 L 9.0 L Hematocrit 29.2 #L 29.7 L 28.0 L Mean Corpuscular 95.1 93.4 95.9 Volume Mean Corpuscular 30.9 30.8 30.8 Hemoglobin Mean Corpuscular 32.5 33.0 32.1 Hemoglobin Concent Red Cell 13.4 13.9 14.6 H Distribution Width Platelet Count 322 176 # 220 # Mean Platelet 9.7 10.7 H 9.6 Volume Immature 1.600 H 1.300 H 0.900 H Granulocytes % Neutrophils % 75.6 81.8 H 80.1 H Lymphocytes % 14.7 L 8.5 L 10.1 L Monocytes % 7.2 8.0 8.4 Eosinophils % 0.6 0.1 0.2 Basophils % 0.3 0.3 0.3 Nucleated Red 0.0 0.0 0.0 Blood Cells % Immature 0.290 H 0.250 H 0.150 H Granulocytes # Neutrophils # 14.0 H 15.4 H 14.1 H Lymphocytes # 2.7 1.6 1.8 Monocytes # 1.3 H 1.5 H 1.5 H Eosinophils # 0.1 0.0 0.0 Basophils # 0.1 0.1 0.1 Nucleated Red 0.0 0.0 0.0 Blood Cells # Sodium Level 137 Potassium Level 4.3 Chloride Level 110 Carbon Dioxide 20 L Level Anion Gap 7 Blood Urea 8 Nitrogen Creatinine 0.53 Est Glomerular > 60 Filtrat Rate mL/min Glucose Level 112 Calcium Level 8.2 L Lab Scanned Report REFERENCE LAB Home Meds Active Scripts Acetaminophen-Codeine* (Acetaminophen-Cod #3*) 300-30 Mg Tab, 1 TAB PO Q4H PRN for PAIN, #10 TAB Prov:MICHOACANO DENTON MD 12/14/14 Acetaminophen* (Acetaminophen*) 500 MG Extra Strength Tablet, 500-1000 MG PO Q6H PRN for PAIN AND OR ELEVATED TEMP, #20 TAB Prov:JOHN GASTELUM PA-C 12/09/14 Nitrofurantoin Monohyd Macrocr* (Macrobid*) 100 Mg Capsr, 100 MG PO BID for 7 Days, CAP Prov:JOHN GASTELUM PA-C 12/09/14 Reported Medications Vit/Fe Fumarate/Fa* ( Vitamin Tablet*) 1 Tab Tablet, 1 TAB PO DAILY 08/05/13 Medications Current Medications IV Flush (NS 3 ml) 3 ml PER PROTOCOL IV ; Start 09/30/18 at 10:00 Ibuprofen (Motrin) 600 mg Q6 PO ; Start 10/01/18 at 12:00 Simethicone (Mylicon) 160 mg Q8H PRN PO .GAS; Start 09/30/18 at 10:00 Lanolin (Lanolin Hpa) 1 applic BEDSIDE MEDICATION PRN TOP .NIPPLES; Start 09/30/18 at 10:00 Oxytocin/Lactated Ringer's 500 ml @ 0 mls/hr ONCE PRN IV .VAGINAL BLEEDING; Start 09/30/18 at 10:00 Methylergonovine Maleate (Methergine) 0.2 mg ONCE PRN IM .VAGINAL BLEEDING; Start 09/30/18 at 10:00 Carboprost Tromethamine (Hemabate) 250 mcg ONCE PRN IM .VAGINAL BLEEDING; Start 09/30/18 at 10:00 Misoprostol (Cytotec) 1,000 mcg ONCE PRN GA .VAGINAL BLEEDING; Start 09/30/18 at 10:00 Naloxone HCl (Narcan) 0.2 mg PRN PRN IV RR < 8; Start 09/30/18 at 14:30 Hydromorphone HCl (Dilaudid PACKER OPERATOR AUTOMATIC) Q4PCA IV Last administered on 10/01/18at 02:48; Admin Dose 6 MG; Start 09/30/18 at 14:30 Acetaminophen (Tylenol Tab) 500 mg Q4H PRN PO PAIN LEVEL 1-5; Start 09/30/18 at 14:30 Acetaminophen/ Hydrocodone Bitart ([place] (5/325)) 1 tab Q4H PRN PO PAIN LEVEL 1-5; Start 09/30/18 at 14:30 Hydromorphone HCl (Dilaudid) 0.2 mg Q4H PRN IV PAIN LEVEL 1-5; Start 09/30/18 at 14:30 Hydromorphone HCl (Dilaudid) 0.4 mg Q4H PRN IV PAIN LEVEL 6-10; Start 09/30/18 at 14:30 Ondansetron HCl (Zofran Inj) 4 mg Q6H PRN IV NAUSEA AND/OR VOMITING; Start 09/30/18 at 14:30 Zolpidem Tartrate (Ambien) 5 mg HS MAY REPEAT X 1 PRN PO .INSOMNIA; Start 09/30/18 at 14:30 Diphenhydramine HCl (Benadryl) 25 mg Q6H PRN IV .ITCHING; Start 09/30/18 at 14:30 Lactated Ringer's 1,000 ml @ 70 mls/hr [id number] IV Last administered on 10/01/18at 02:23; Admin Dose 70 MLS/HR; Start 10/01/18 at 02:00 Assessment/Plan Hospital Course (Demo Recall) Assessment and plan: 33-year female status post and tubal ligation postop day #1 with subsequent postop hematuria earlier today, status post surgical bladder repair postop day #1. #Postop hematuria: Again secondary to bladder laceration status post postop bladder repair by urologist working with WEB ENGINEER doctor in the OR postop day #1. -Monitor for any further hematuria, CBC daily -Follow-up postop recommendations from urology and WEB ENGINEER team # and tubal ligation with tachycardia: Postop day #1, see above for the occurring postop complications. Overall improving, but again having tachycardia heart rate 120s-130s but stable blood pressure. -Monitor vital signs very carefully for now, given the tachycardia we will go ahead and obtain cardiology consult as well. -We will consider doing ABG and getting cardiology consult given the tac hycardia. Again patient is asymptomatic otherwise. -Continue postop care per primary team WEB ENGINEER recommendations including pain control medications, labs, etc. We will continue to follow along with you, and again will obtain cardiology consult to further investigate patient's tachycardia. YOANDY OSORIO Oct 01, 2018 10:25
[2018-10-01] MEDS: IBUPROFEN 600 MG TAB PO SCH ×2 (12:00→17:33)
--- NOTE | 2018-10-01 13:26 | PREOPHP ---
DATE OF ADMISSION: 09/30/2018 HISTORY OF PRESENT ILLNESS: The patient is a 33-year-old 6, para 3, EDC 10/05/2018. Intraut erine at 39 weeks gestational age with a history of previous x3, admitted today f or elective repeat delivery with bilateral tubal sterilization. She denies any headache, na usea, vomiting, shortness of breath, or visual changes. She reports of occasional contractions. Her care took place at [facility]. PAST MEDICAL HISTORY: None. MEDICATIONS: vitamins. PAST SURGICAL HISTORY: x3 previous section. OBSTETRICAL HISTORY: x3 C-sections, x2 missed AB. GYNECOLOGIC HISTORY: 10, regular 3 to 4 days. She denies any sexually transmitted disease. Sexuall y active with 1 partner. SOCIAL HISTORY: She denies any smoking, drugs or alcohol. FAMILY HISTORY: None. REVIEW OF SYSTEMS: All within normal except history of present illness. PHYSICAL EXAMINATION: HEENT: Within normal. LUNGS: CTA bilateral. CARDIOVASCULAR: S1, S2, regular rhythm. ABDOMEN: Gravid, nontender. Negative CVA tenderness. EXTREMITIES: Negative edema. No calf tenderness. PELVIC: Vaginal exam deferred. heart tracing category 1. ASSESSMENT: A 33-year-old 6, para 3, intrauterine at 39 weeks gestational age, ad vanced maternal age, previous x3, desires elective repeat delivery with bilateral tubal sterilization. PLAN: Consent for repeat with bilateral tubal ligation. Risks, benefits and alternatives explained. All questions were answered. Dictated By: SADI DIOR/STEVE Conf#: [id number] DID#: [id number] CC: SADI CHAPARRO MD;*EndCC*
--- NOTE | 2018-10-01 16:57 | CONS ---
Assessment/Plan Assessment/Plan Hospital Course (Demo Recall) 33 yo with sinus tachycardia secondary to blood loss and pain, and possibly anxiety. Impression: Sinus tachycardia Blood loss anemia Recommendations: Fluid resuscitation Pain control Consultation Date/Type/Reason Admit Date/Time Sep 30, 2018 at 06:10 Date of Consultation: Oct 01, 2018 Type of Consult Cardiology Reason for Consultation tachycardia Requesting Provider: YOANDY OSORIO Date/Time of Note DATE: 10/01/18 TIME: 16:50 Hx of Present Illness 33 yo previously healthy in ICU for tachycardia. Patient underwent yesterday for delivery of her 4th child and tubal ligation, during the procedure her bladder was lacerated and required repair. Hgb dropped from 12 down to 9. At present she has some abdominal pain but also pain in her left hand, where an IV infiltrated. No prior health issues. Constitutional: no complaints Eyes: no complaints ENT: no complaints Respiratory: no complaints Cardiovascular: no complaints Gastrointestinal: no complaints Genitourinary: no complaints Musculoskeletal: no complaints Skin: no complaints Neurologic: no complaints Endocrine: no complaints Lymphatic: no complaints Psychological: no complaints Immunologic: no complaints Past Medical History Home Meds Active Scripts Acetaminophen-Codeine* (Acetaminophen-Cod #3*) 300-30 Mg Tab, 1 TAB PO Q4H PRN for PAIN, #10 TAB Prov:MICHOACANO DENTON MD 12/14/14 Acetaminophen* (Acetaminophen*) 500 MG Extra Strength Tablet, 500-1000 MG PO Q6H PRN for PAIN AND OR ELEVATED TEMP, #20 TAB Prov:JOHN GASTELUM PA-C 12/09/14 Nitrofurantoin Monohyd Macrocr* (Macrobid*) 100 Mg Capsr, 100 MG PO BID for 7 Days, CAP Prov:JOHN GASTELUM PA-C 12/09/14 Reported Medications Vit/Fe Fumarate/Fa* ( Vitamin Tablet*) 1 Tab Tablet, 1 TAB PO DAILY 08/05/13 Medications Current Medications IV Flush (NS 3 ml) 3 ml PER PROTOCOL IV ; Start 09/30/18 at 10:00 Ibuprofen (Motrin) 600 mg Q6 PO ; Start 10/01/18 at 12:00 Simethicone (Mylicon) 160 mg Q8H PRN PO .GAS; Start 09/30/18 at 10:00 Lanolin (Lanolin Hpa) 1 applic BEDSIDE MEDICATION PRN TOP .NIPPLES; Start 09/30/18 at 10:00 Oxytocin/Lactated Ringer's 500 ml @ 0 mls/hr ONCE PRN IV .VAGINAL BLEEDING; Start 09/30/18 at 10:00 Methylergonovine Maleate (Methergine) 0.2 mg ONCE PRN IM .VAGINAL BLEEDING; Start 09/30/18 at 10:00 Carboprost Tromethamine (Hemabate) 250 mcg ONCE PRN IM .VAGINAL BLEEDING; Start 09/30/18 at 10:00 Misoprostol (Cytotec) 1,000 mcg ONCE PRN NE .VAGINAL BLEEDING; Start 09/30/18 at 10:00 Naloxone HCl (Narcan) 0.2 mg PRN PRN IV RR < 8; Start 09/30/18 at 14:30 Hydromorphone HCl (Dilaudid CHANDELIER MAKER) Q4PCA IV Last administered on 10/01/18at 02:48; Admin Dose 6 MG; Start 09/30/18 at 14:30 Acetaminophen (Tylenol Tab) 500 mg Q4H PRN PO PAIN LEVEL 1-5; Start 09/30/18 at 14:30 Acetaminophen/ Hydrocodone Bitart ([place] (5/325)) 1 tab Q4H PRN PO PAIN LEVEL 1-5; Start 09/30/18 at 14:30 Hydromorphone HCl (Dilaudid) 0.2 mg Q4H PRN IV PAIN LEVEL 1-5; Start 09/30/18 at 14:30 Hydromorphone HCl (Dilaudid) 0.4 mg Q4H PRN IV PAIN LEVEL 6-10; Start 09/30/18 at 14:30 Ondansetron HCl (Zofran Inj) 4 mg Q6H PRN IV NAUSEA AND/OR VOMITING; Start 09/30/18 at 14:30 Zolpidem Tartrate (Ambien) 5 mg HS MAY REPEAT X 1 PRN PO .INSOMNIA; Start 09/30/18 at 14:30 Diphenhydramine HCl (Benadryl) 25 mg Q6H PRN IV .ITCHING; Start 09/30/18 at 14:30 Lactated Ringer's 1,000 ml @ 70 mls/hr [id number] IV Last administered on 10/01/18at 16:31; Admin Dose 70 MLS/HR; Start 10/01/18 at 02:00 Allergies: Coded Allergies: No Known Allergy (Unverified , 12/14/14) Past Surgical History Past Surgical Hx: other ( x4, tubal ligation) Family History Significant Family History: no pertinent family hx Social History Alcohol Use: none Smoking Status: Never smoker Drug Use: none Exam/Review of Systems Vital Signs Vitals Vital Signs Date Temp Pulse Resp B/P (MAP) Pulse Ox O2 O2 Flow FiO2 Time Delivery Rate 10/01/18 99.0 126 19 134/80 96 Room Air 16:00 (98) 09/30/18 10.0 14:00 Intake and Output 09/30/18 09/30/18 10/01/18 1515:00 23:00 07:00 IntakeIntake Total 75 ml 1400 ml 710 ml OutputOutput Total 1100 ml 600 ml 625 ml BalanceBalance -1025 ml 800 ml 85 ml Exam Constitutional: alert, oriented, other (obese) Psych: nl mood/affect Head: normocephalic, atraumatic Eyes: nl conjunctiva, EOMI, nl lids, nl sclera ENMT: nl external ears & nose, nl lips & teeth, nl nasal mucosa & septum Neck: supple; No jvd, No bruits Respiratory: clear to auscultation, normal air movement Cardiovascular: regular rate and rhythm, nl pulses, other (tachycardic); No murmurs/extra sounds Gastrointestinal: soft, other (hypoactive bowel sounds) Musculoskeletal: nl extremities to inspection Extremities: normal pulses Neurological: nl mental status, nl speech Skin: nl turgor; No rash or lesions Labs Result Diagram: 10/01/18 0304 10/01/18 0304 Results 24hrs Laboratory Tests Test 10/01/18 03:04 10/01/18 05:12 10/01/18 10:17 White Blood Count 17.6 H Red Blood Count 2.92 L Hemoglobin 9.0 L Hematocrit 28.0 L Mean Corpuscular Volume 95.9 Mean Corpuscular 30.8 Hemoglobin Mean Corpuscular 32.1 Hemoglobin Concent Red Cell Distribution 14.6 H Width Platelet Count 220 # Mean Platelet Volume 9.6 Immature Granulocytes % 0.900 H Neutrophils % 80.1 H Lymphocytes % 10.1 L Monocytes % 8.4 Eosinophils % 0.2 Basophils % 0.3 Nucleated Red Blood Cells 0.0 % Immature Granulocytes # 0.150 H Neutrophils # 14.1 H Lymphocytes # 1.8 Monocytes # 1.5 H Eosinophils # 0.0 Basophils # 0.1 Nucleated Red Blood Cells 0.0 # Sodium Level 137 Potassium Level 4.3 Chloride Level 110 Carbon Dioxide Level 20 L Anion Gap 7 Blood Urea Nitrogen 8 Creatinine 0.53 Est Glomerular Filtrat > 60 Rate mL/min Glucose Level 112 Calcium Level 8.2 L Lab Scanned Report REFERENCE LAB Blood Gas Specimen Blood arterial Source Arterial Blood Date 10/01/2018 10:58:23 AM Drawn Arterial Blood pH 7.448 (Temp corrected) Arterial Blood pCO2 35.2 (Temp correct) Arterial Blood pO2 73.6 L (Temp corrected) Arterial Blood HCO3 23.8 Arterial Blood Base 0 Excess Arterial Blood 94.0 L Oxygen Saturation Keith Test ACCEPTAB Arterial Blood Gas Right Radial Puncture Site Arterial 0.2 Blood Carboxyhemoglobin Arterial Blood 0.4 Methemoglobin Blood Gas A-a O2 34.0 H Differential Oxyhemoglobin Percent 93.4 Blood Gas Temperature 37.0 Blood Gas Modality ROOM AIR FiO2 21.0 Blood Gas Notified Whom TM Blood Gas Notified Time 10/01/2018 11:06:13 AM Imaging Imaging EKG currently shows sinus tachycardia at 131 bpm. Medications Medications Current Medications IV Flush (NS 3 ml) 3 ml PER PROTOCOL IV ; Start 09/30/18 at 10:00 Ibuprofen (Motrin) 600 mg Q6 PO ; Start 10/01/18 at 12:00 Simethicone (Mylicon) 160 mg Q8H PRN PO .GAS; Start 09/30/18 at 10:00 Lanolin (Lanolin Hpa) 1 applic BEDSIDE MEDICATION PRN TOP .NIPPLES; Start 09/30/18 at 10:00 Oxytocin/Lactated Ringer's 500 ml @ 0 mls/hr ONCE PRN IV .VAGINAL BLEEDING; Sta rt 09/30/18 at 10:00 Methylergonovine Maleate (Methergine) 0.2 mg ONCE PRN IM .VAGINAL BLEEDING; Sta rt 09/30/18 at 10:00 Carboprost Tromethamine (Hemabate) 250 mcg ONCE PRN IM .VAGINAL BLEEDING; Start 09/30/18 at 10:00 Misoprostol (Cytotec) 1,000 mcg ONCE PRN NE .VAGINAL BLEEDING; Start 09/30/18 at 10:00 Naloxone HCl (Narcan) 0.2 mg PRN PRN IV RR < 8; Start 09/30/18 at 14:30 Hydromorphone HCl (Dilaudid CHANDELIER MAKER) Q4PCA IV Last administered on 10/01/18at 02:48; Admin Dose 6 MG; Start 09/30/18 at 14:30 Acetaminophen (Tylenol Tab) 500 mg Q4H PRN PO PAIN LEVEL 1-5; Start 09/30/18 at 14:30 Acetaminophen/ Hydrocodone Bitart ([place] (5/325)) 1 tab Q4H PRN PO PAIN LEVEL 1-5; Start 09/30/18 at 14:30 Hydromorphone HCl (Dilaudid) 0.2 mg Q4H PRN IV PAIN LEVEL 1-5; Start 09/30/18 at 14:30 Hydromorphone HCl (Dilaudid) 0.4 mg Q4H PRN IV PAIN LEVEL 6-10; Start 09/30/18 at 14:30 Ondansetron HCl (Zofran Inj) 4 mg Q6H PRN IV NAUSEA AND/OR VOMITING; Start 09/30/18 at 14:30 Zolpidem Tartrate (Ambien) 5 mg HS MAY REPEAT X 1 PRN PO .INSOMNIA; Start 09/30/18 at 14:30 Diphenhydramine HCl (Benadryl) 25 mg Q6H PRN IV .ITCHING; Start 09/30/18 at 14:30 Lactated Ringer's 1,000 ml @ 70 mls/hr [id number] IV Last administered on 10/01/18at 16:31; Admin Dose 70 MLS/HR; Start 10/01/18 at 02:00 ZEFERINO NEGRON Oct 01, 2018 16:57
--- NOTE | 2018-10-01 19:15 | CONS ---
Consult Date/Type/Reason Admit Date/Time Sep 30, 2018 at 06:10 Initial Consult Date 10/01/18 Type of Consultation: Urology Reason for Consultation Follow-up cystorrhaphy Requesting Provider: YAONDY OSORIO Date/Time of Note DATE: 10/01/18 TIME: 19:13 Subjective Patient is awake and alert. She has an NG tube in place Objective Vitals Vital Signs Date Temp Pulse Resp B/P (MAP) Pulse Ox O2 O2 Flow FiO2 Time Delivery Rate 10/01/18 133 16 140/81 95 Room Air 18:00 (100) 10/01/18 99.0 16:00 09/30/18 10.0 14:00 Intake and Output 09/30/18 09/30/18 10/01/18 1414:59 22:59 06:59 IntakeIntake Total 1350 ml 765 ml OutputOutput Total 1100 ml 560 ml 665 ml BalanceBalance -1100 ml 790 ml 100 ml Exam The abdominal dressing is intact and the Norton catheter is draining clear urine. Results/Medications Result Diagram: 10/01/18 0304 10/01/18 0304 Results 24 hrs Laboratory Tests Test 10/01/18 03:04 10/01/18 05:12 10/01/18 10:17 White Blood Count 17.6 H Red Blood Count 2.92 L Hemoglobin 9.0 L Hematocrit 28.0 L Mean Corpuscular Volume 95.9 Mean Corpuscular 30.8 Hemoglobin Mean Corpuscular 32.1 Hemoglobin Concent Red Cell Distribution 14.6 H Width Platelet Count 220 # Mean Platelet Volume 9.6 Immature Granulocytes % 0.900 H Neutrophils % 80.1 H Lymphocytes % 10.1 L Monocytes % 8.4 Eosinophils % 0.2 Basophils % 0.3 Nucleated Red Blood Cells 0.0 % Immature Granulocytes # 0.150 H Neutrophils # 14.1 H Lymphocytes # 1.8 Monocytes # 1.5 H Eosinophils # 0.0 Basophils # 0.1 Nucleated Red Blood Cells 0.0 # Sodium Level 137 Potassium Level 4.3 Chloride Level 110 Carbon Dioxide Level 20 L Anion Gap 7 Blood Urea Nitrogen 8 Creatinine 0.53 Est Glomerular Filtrat > 60 Rate mL/min Glucose Level 112 Calcium Level 8.2 L Lab Scanned Report REFERENCE LAB Blood Gas Specimen Blood arterial Source Arterial Blood Date 10/01/2018 10:58:23 AM Drawn Arterial Blood pH 7.448 (Temp corrected) Arterial Blood pCO2 35.2 (Temp correct) Arterial Blood pO2 73.6 L (Temp corrected) Arterial Blood HCO3 23.8 Arterial Blood Base 0 Excess Arterial Blood 94.0 L Oxygen Saturation Keith Test ACCEPTAB Arterial Blood Gas Right Radial Puncture Site Arterial 0.2 Blood Carboxyhemoglobin Arterial Blood 0.4 Methemoglobin Blood Gas A-a O2 34.0 H Differential Oxyhemoglobin Percent 93.4 Blood Gas Temperature 37.0 Blood Gas Modality ROOM AIR FiO2 21.0 Blood Gas Notified Whom TM Blood Gas Notified Time 10/01/2018 11:06:13 AM Home Meds Active Scripts Acetaminophen-Codeine* (Acetaminophen-Cod #3*) 300-30 Mg Tab, 1 TAB PO Q4H PRN for PAIN, #10 TAB Prov:MICHOACANO DENTON MD 12/14/14 Acetaminophen* (Acetaminophen*) 500 MG Extra Strength Tablet, 500-1000 MG PO Q6H PRN for PAIN AND OR ELEVATED TEMP, #20 TAB Prov:JOHN GASTELUM PA-C 12/09/14 Nitrofurantoin Monohyd Macrocr* (Macrobid*) 100 Mg Capsr, 100 MG PO BID for 7 Days, CAP Prov:JOHN GASTELUM PA-C 12/09/14 Reported Medications Vit/Fe Fumarate/Fa* ( Vitamin Tablet*) 1 Tab Tablet, 1 TAB PO DAILY 08/05/13 Medications Current Medications IV Flush (NS 3 ml) 3 ml PER PROTOCOL IV ; Start 09/30/18 at 10:00 Ibuprofen (Motrin) 600 mg Q6 PO ; Start 10/01/18 at 12:00 Simethicone (Mylicon) 160 mg Q8H PRN PO .GAS; Start 09/30/18 at 10:00 Lanolin (Lanolin Hpa) 1 applic BEDSIDE MEDICATION PRN [place] .NIPPLES; Start 09/30/18 at 10:00 Methylergonovine Maleate (Methergine) 0.2 mg ONCE PRN IM .VAGINAL BLEEDING; Start 09/30/18 at 10:00 Carboprost Tromethamine (Hemabate) 250 mcg ONCE PRN IM .VAGINAL BLEEDING; Start 09/30/18 at 10:00 Misoprostol (Cytotec) 1,000 mcg ONCE PRN [place] .VAGINAL BLEEDING; Start 09/30/18 at 10:00 Naloxone HCl (Narcan) 0.2 mg PRN PRN IV RR < 8; Start 09/30/18 at 14:30 Hydromorphone HCl (Dilaudid [employer] CHIEF STRATEGY OFFICER) Q4PCA IV Last administered on 10/01/18at 16:58; Admin Dose 6 MG; Start 09/30/18 at 14:30 Acetaminophen (Tylenol Tab) 500 mg Q4H PRN PO PAIN LEVEL 1-5; Start 09/30/18 at 14:30 Acetaminophen/ Hydrocodone Bitart ([place] (5/325)) 1 tab Q4H PRN PO PAIN LEVEL 1-5; Start 09/30/18 at 14:30 Hydromorphone HCl (Dilaudid) 0.2 mg Q4H PRN IV PAIN LEVEL 1-5; Start 09/30/18 at 14:30 Hydromorphone HCl (Dilaudid) 0.4 mg Q4H PRN IV PAIN LEVEL 6-10; Start 09/30/18 at 14:30 Ondansetron HCl (Zofran Inj) 4 mg Q6H PRN IV NAUSEA AND/OR VOMITING; Start 09/30/18 at 14:30 Zolpidem Tartrate (Ambien) 5 mg HS MAY REPEAT X 1 PRN PO .INSOMNIA; Start 09/30/18 at 14:30 Diphenhydramine HCl (Benadryl) 25 mg Q6H PRN IV .ITCHING; Start 09/30/18 at 14:30 Lactated Ringer's 1,000 ml @ 70 mls/hr [id number] IV Last administered on 10/01/18at 16:31; Admin Dose 70 MLS/HR; Start 10/01/18 at 02:00 Assessment/Plan Hospital Course (Demo Recall) 33-year-old female status post and cystorrhaphy and evacuation of uterine hematoma. She is postop day 1. She is stable and the Norton catheter is draining clear urine. Plan is to keep the Norton catheter in for 10 days then do a CT cystogram and then if no leakage discontinue the Norton catheter FAYE CALHOUN MD Oct 01, 2018 19:15
[2018-10-02] VITALS (10 sets, daily range): BP systolic 115–155; BP diastolic 70–89; PULSE 15–135; RESP 18–20
[2018-10-02] MEDS: IBUPROFEN 600 MG TAB PO SCH ×5 (00:45→23:57)
[2018-10-02] MEDS: LACTATED RINGER'S 1,000 ML IV SCH ×2 (07:23→20:54)
--- NOTE | 2018-10-02 08:48 | CONS ---
Consult Date/Type/Reason Admit Date/Time Sep 30, 2018 at 06:10 Initial Consult Date 10/01/18 Type of Consultation: Urology Reason for Consultation Status post cystorrhaphy Requesting Provider: YOANDY OSORIO Date/Time of Note DATE: 10/02/18 TIME: 08:43 Subjective Patient complaining of swelling of her left upper extremity Objective Vitals Vital Signs Date Temp Pulse Resp B/P (MAP) Pulse Ox O2 O2 Flow FiO2 Time Delivery Rate 10/02/18 98.8 53 20 116/70 96 07:33 (85) 10/01/18 Room Air 18:00 09/30/18 10.0 14:00 Intake and Output 10/01/18 10/01/18 10/02/18 1515:00 23:00 07:00 IntakeIntake Total 560 ml 210 ml 200 ml OutputOutput Total 690 ml 260 ml 1200 ml BalanceBalance -130 ml -50 ml -1000 ml Exam Swelling of left upper extremity as well as the right upper extremity but less. Norton catheter is draining clear urine Results/Medications Result Diagram: 10/01/18 0304 10/01/18 0304 Results 24 hrs Laboratory Tests Test 10/01/18 10:17 Blood Gas Specimen Source Blood arterial Arterial Blood Date Drawn 10/01/2018 10:58:23 AM Arterial Blood pH (Temp corrected) 7.448 Arterial Blood pCO2 (Temp correct) 35.2 Arterial Blood pO2 (Temp corrected) 73.6 L Arterial Blood HCO3 23.8 Arterial Blood Base Excess 0 Arterial Blood Oxygen Saturation 94.0 L Keith Test ACCEPTAB Arterial Blood Gas Puncture Site Right Radial Arterial Blood Carboxyhemoglobin 0.2 Arterial Blood Methemoglobin 0.4 Blood Gas A-a O2 Differential 34.0 H Oxyhemoglobin Percent 93.4 Blood Gas Temperature 37.0 Blood Gas Modality ROOM AIR FiO2 21.0 Blood Gas Notified Whom TM Blood Gas Notified Time 10/01/2018 11:06:13 AM Home Meds Active Scripts Acetaminophen-Codeine* (Acetaminophen-Cod #3*) 300-30 Mg Tab, 1 TAB PO Q4H PRN for PAIN, #10 TAB Prov:MICHOACANO DENTON MD 12/14/14 Acetaminophen* (Acetaminophen*) 500 MG Extra Strength Tablet, 500-1000 MG PO Q6H PRN for PAIN AND OR ELEVATED TEMP, #20 TAB Prov:JOHN GASTELUM PA-C 12/09/14 Nitrofurantoin Monohyd Macrocr* (Macrobid*) 100 Mg Capsr, 100 MG PO BID for 7 Days, CAP Prov:JOHN GASTELUM PA-C 12/09/14 Reported Medications Vit/Fe Fumarate/Fa* ( Vitamin Tablet*) 1 Tab Tablet, 1 TAB PO DAILY 08/05/13 Medications Current Medications IV Flush (NS 3 ml) 3 ml PER PROTOCOL IV ; Start 09/30/18 at 10:00 Ibuprofen (Motrin) 600 mg Q6 PO Last administered on 10/02/18at 06:37; Admin Dose 600 MG; Start 10/01/18 at 12:00 Simethicone (Mylicon) 160 mg Q8H PRN PO .GAS; Start 09/30/18 at 10:00 Lanolin (Lanolin Hpa) 1 applic BEDSIDE MEDICATION PRN TOP .NIPPLES; Start 09/30/18 at 10:00 Methylergonovine Maleate (Methergine) 0.2 mg ONCE PRN IM .VAGINAL BLEEDING; Start 09/30/18 at 10:00 Carboprost Tromethamine (Hemabate) 250 mcg ONCE PRN IM .VAGINAL BLEEDING; Start 09/30/18 at 10:00 Misoprostol (Cytotec) 1,000 mcg ONCE PRN [place] .VAGINAL BLEEDING; Start 09/30/18 at 10:00 Naloxone HCl (Narcan) 0.2 mg PRN PRN IV RR < 8; Start 09/30/18 at 14:30 Hydromorphone HCl (Dilaudid ARMATURE WINDER REPAIR) Q4PCA IV Last administered on 10/01/18at 16:58; Admin Dose 6 MG; Start 09/30/18 at 14:30 Acetaminophen (Tylenol Tab) 500 mg Q4H PRN PO PAIN LEVEL 1-5; Start 09/30/18 at 14:30 Acetaminophen/ Hydrocodone Bitart ([place] (5/325)) 1 tab Q4H PRN PO PAIN LEVEL 1-5; Start 09/30/18 at 14:30 Hydromorphone HCl (Dilaudid) 0.2 mg Q4H PRN IV PAIN LEVEL 1-5; Start 09/30/18 at 14:30 Hydromorphone HCl (Dilaudid) 0.4 mg Q4H PRN IV PAIN LEVEL 6-10; Start 09/30/18 at 14:30 Ondansetron HCl (Zofran Inj) 4 mg Q6H PRN IV NAUSEA AND/OR VOMITING; Start 09/30/18 at 14:30 Zolpidem Tartrate (Ambien) 5 mg HS MAY REPEAT X 1 PRN PO .INSOMNIA; Start 09/30/18 at 14:30 Diphenhydramine HCl (Benadryl) 25 mg Q6H PRN IV .ITCHING; Start 09/30/18 at 14:30 Lactated Ringer's 1,000 ml @ 70 mls/hr [id number] IV Last administered on 10/02/18at 07:23; Admin Dose 70 MLS/HR; Start 10/01/18 at 02:00 Assessment/Plan Hospital Course (Demo Recall) 33-year-old female status post and cystorrhaphy and evacuation of u terine hematoma. She is postop day 2. She is stable and the Norton catheter is draining clear urine. She is complaining of swelling of her left upper extremity. Plan is to keep the Norton catheter in for 10 days then do a CT cystogram and then if no leakage discontinue the Norton catheter. Elevate the left upper extremity. She needs to ambulate and also apply automatic sequential compression device on her lower extremities FAYE CALHOUN MD Oct 02, 2018 08:48
[2018-10-02] MEDS ORDERED: BISACODYL 10 MG SUPP PR ONE (11:30)
[2018-10-02] MEDS: OXYCODONE/ACETAMINOPHEN (5/325) TAB PO PRN ×2 (12:28→18:39)
--- NOTE | 2018-10-02 12:36 | QN ---
Documentation Comment progress note pod 2 patient seen and evaluated aao x3 rey clear no compliants vs pulse 113 lung cta b/l cvs positive s1 s2 rrr abo dressing clean no distention appropriate tenderness extremity positive left hand infiltrate from iv no calf tenderness h/h 7.03/31 a/ sp repeat cd with b/l tubal ligation, reexploration repair of uterine hematoma, bladder laceration repair stable, however tachycardia p/discuss with medicine for 2 more units of blood transfusion continue to monitor patient closely SADI CHAPARRO MD Oct 02, 2018 12:36
--- NOTE | 2018-10-02 15:11 | CONS ---
Consult Date/Type/Reason Admit Date/Time Sep 30, 2018 at 06:10 Initial Consult Date Type of Consultation: Urology Requesting Provider: YOANDY OSORIO Date/Time of Note DATE: 10/02/18 TIME: 15:05 Subjective Patient had some mild lower bleeding symptoms, left arm pain and seen by urology team earlier today. Found with superficial veins and now has left arm elevation and pain control medications being given. Objective Vitals Vital Signs Date Temp Pulse Resp B/P (MAP) Pulse Ox O2 O2 Flow FiO2 Time Delivery Rate 10/02/18 114 12:00 10/02/18 98.2 20 115/70 96 11:13 (85) 10/01/18 Room Air 18:00 09/30/18 10.0 14:00 Intake and Output 10/01/18 10/01/18 10/02/18 1414:59 22:59 06:59 IntakeIntake Total 560 ml 280 ml 200 ml OutputOutput Total 630 ml 320 ml 1200 ml BalanceBalance -70 ml -40 ml -1000 ml Exam GENERAL: lying in bed, answering questions, no acute distress HEENT: Pupils equal, round, reactive to light. Extraocular muscles intact. NECK: Supple. No thyromegaly. LUNGS: Clear to auscultation bilaterally. CARDIOVASCULAR: S1 and S2 heard ABDOMEN: Soft, nondistended. Slightly decreased bowel sounds, bandages in place. MUSCULOSKELETAL: No lower extremity edema bilaterally. NEUROLOGIC: No focal deficits. Results/Medications Result Diagram: 10/02/18 1145 10/01/18 0304 Results 24 hrs Laboratory Tests Test 10/02/18 11:45 White Blood Count 18.7 H Red Blood Count 2.53 L Hemoglobin 7.9 L Hematocrit 23.7 L Mean Corpuscular Volume 93.7 Mean Corpuscular Hemoglobin 31.2 Mean Corpuscular Hemoglobin Concent 33.3 Red Cell Distribution Width 14.6 H Platelet Count 249 Mean Platelet Volume 9.1 Immature Granulocytes % 1.300 H Neutrophils % 80.5 H Lymphocytes % 7.8 L Monocytes % 9.3 Eosinophils % 0.8 Basophils % 0.3 Nucleated Red Blood Cells % 0.0 Immature Granulocytes # 0.250 H Neutrophils # 15.0 H Lymphocytes # 1.5 Monocytes # 1.7 H Eosinophils # 0.2 Basophils # 0.1 Nucleated Red Blood Cells # 0.0 Home Meds Active Scripts Acetaminophen-Codeine* (Acetaminophen-Cod #3*) 300-30 Mg Tab, 1 TAB PO Q4H PRN for PAIN, #10 TAB Prov:MICHOACANO DENTON MD 12/14/14 Acetaminophen* (Acetaminophen*) 500 MG Extra Strength Tablet, 500-1000 MG PO Q6H PRN for PAIN AND OR ELEVATED TEMP, #20 TAB Prov:JOHN GASTELUM PA-C 12/09/14 Nitrofurantoin Monohyd Macrocr* (Macrobid*) 100 Mg Capsr, 100 MG PO BID for 7 Days, CAP Prov:JOHN GASTELUM PA-C 12/09/14 Reported Medications Vit/Fe Fumarate/Fa* ( Vitamin Tablet*) 1 Tab Tablet, 1 TAB PO DAILY 08/05/13 Medications Current Medications IV Flush (NS 3 ml) 3 ml PER PROTOCOL IV ; Start 09/30/18 at 10:00 Ibuprofen (Motrin) 600 mg Q6 PO Last administered on 10/02/18at 12:00; Admin Dose 600 MG; Start 10/01/18 at 12:00 Simethicone (Mylicon) 160 mg Q8H PRN PO .GAS Last administered on 10/02/18at 12:31; Admin Dose 160 MG; Start 09/30/18 at 10:00 Lanolin (Lanolin Hpa) 1 applic BEDSIDE MEDICATION PRN TOP .NIPPLES; Start 09/30/18 at 10:00 Methylergonovine Maleate (Methergine) 0.2 mg ONCE PRN IM .VAGINAL BLEEDING; Start 09/30/18 at 10:00 Carboprost Tromethamine (Hemabate) 250 mcg ONCE PRN IM .VAGINAL BLEEDING; Start 09/30/18 at 10:00 Misoprostol (Cytotec) 1,000 mcg ONCE PRN [place] .VAGINAL BLEEDING; Start 09/30/18 at 10:00 Naloxone HCl (Narcan) 0.2 mg PRN PRN IV RR < 8; Start 09/30/18 at 14:30 Acetaminophen (Tylenol Tab) 500 mg Q4H PRN PO PAIN LEVEL 1-5; Start 09/30/18 at 14:30 Acetaminophen/ Hydrocodone Bitart ([place] (5/325)) 1 tab Q4H PRN PO PAIN LEVEL 1-5; Start 09/30/18 at 14:30 Hydromorphone HCl (Dilaudid) 0.2 mg Q4H PRN IV PAIN LEVEL 1-5; Start 09/30/18 at 14:30 Hydromorphone HCl (Dilaudid) 0.4 mg Q4H PRN IV PAIN LEVEL 6-10; Start 09/30/18 at 14:30 Ondansetron HCl (Zofran Inj) 4 mg Q6H PRN IV NAUSEA AND/OR VOMITING; Start 09/30/18 at 14:30 Zolpidem Tartrate (Ambien) 5 mg HS MAY REPEAT X 1 PRN PO .INSOMNIA; Start 09/30/18 at 14:30 Diphenhydramine HCl (Benadryl) 25 mg Q6H PRN IV .ITCHING; Start 09/30/18 at 14:30 Lactated Ringer's 1,000 ml @ 70 mls/hr [id number] IV Last administered on 10/02/18at 07:23; Admin Dose 70 MLS/HR; Start 10/01/18 at 02:00 Acetaminophen (Tylenol Tab) 650 mg Q4H PRN PO MILD PAIN(1-3)OR ELEVATED TEMP; Start 10/02/18 at 11:30 Oxycodone/ Acetaminophen (Percocet (5/ 325)) 2 tab Q4H PRN PO SEVERE PAIN LEVEL 7-10 Last administered on 10/02/18at 12:28; Admin Dose 2 TAB; Start 10/02/18 at 11:30 Simethicone (Mylicon) 80 mg TID PRN PO DISTENSION/GAS/BLOATING; Start 10/02/18 at 11:30 Assessment/Plan Hospital Course (Demo Recall) Assessment and plan: 33-year female status post and tubal ligation postop day #1 with subsequent postop hematuria earlier today, status post surgical bladder repair postop day #1. #Postop hematuria: Again secondary to bladder laceration status post postop bladder repair by urologist working with VAULT WORKER doctor in the OR postop day # 2. -Monitor for any further hematuria, CBC daily -Given slightly lower hemoglobin levels today will order for 2 units PRBC transfusion and monitor for any further signs of bleeding (no need for any other blood products at this time including FFP, INR is normal) -Follow-up postop recommendations from urology and VAULT WORKER team # and tubal ligation with tachycardia: Tachycardia resolving now, postop day # 2, see above for the occurring postop complications. Improved blood pressure. -Monitor vital signs very carefully -Follow-up cardiology recommendations -Continue postop care per primary team VA[employer] WORKER recommendations including pain control medications, labs, etc. We will continue to follow along with you. YOANDY OSORIO. Oct 02, 2018 15:11
[2018-10-03] VITALS (9 sets, daily range): BP systolic 120–143; BP diastolic 65–79; PULSE 103–119; RESP 18–20
[2018-10-03] MEDS: IBUPROFEN 600 MG TAB PO SCH (05:58)
[2018-10-03] MEDS: HYDROCODONE/APAP (5/325) TAB PO PRN ×4 (07:47→22:53)
--- NOTE | 2018-10-03 11:25 | CONS ---
Consult Date/Type/Reason Admit Date/Time Sep 30, 2018 at 06:10 Initial Consult Date Type of Consultation: Urology Requesting Provider: YOANDY OSORIO Date/Time of Note DATE: 10/03/18 TIME: 11:25 Subjective Patient received blood transfusion yesterday. Still having some pain symptoms. Denies any chest pain no fevers overnight. No signs of any upper or lower GI bleeding. No signs of any hematuria. Patient still with some sinus tachycardia. Objective Vitals Vital Signs Date Temp Pulse Resp B/P (MAP) Pulse Ox O2 O2 Flow FiO2 Time Delivery Rate 10/03/18 98.0 105 20 132/69 97 Room Air 11:11 (90) 09/30/18 10.0 14:00 Intake and Output 10/02/18 10/02/18 10/03/18 1515:00 23:00 07:00 IntakeIntake Total 500 ml 1850 ml 660 ml OutputOutput Total 1350 ml 850 ml BalanceBalance 500 ml 500 ml -190 ml Exam GENERAL: lying in bed, no acute distress HEENT: Pupils equal, round, reactive to light. Extraocular muscles intact. NECK: Supple. No thyromegaly. LUNGS: Clear to auscultation bilaterally. CARDIOVASCULAR: Tachycardic heart rate ABDOMEN: Soft, nondistended. Slightly decreased bowel sounds, bandages in place. MUSCULOSKELETAL: No lower extremity edema bilaterally. NEUROLOGIC: No focal deficits. Results/Medications Result Diagram: 10/03/18 0503 10/03/18 0502 Results 24 hrs Laboratory Tests Test 10/02/18 11:45 10/03/18 05:02 10/03/18 05:03 White Blood Count 18.7 H 14.4 #H Red Blood Count 2.53 L 3.01 L Hemoglobin 7.9 L 9.2 L Hematocrit 23.7 L 28.0 L Mean Corpuscular Volume 93.7 93.0 Mean Corpuscular Hemoglobin 31.2 30.6 Mean Corpuscular Hemoglobin Concent 33.3 32.9 Red Cell Distribution Width 14.6 H 15.1 H Platelet Count 249 266 Mean Platelet Volume 9.1 9.9 Immature Granulocytes % 1.300 H 1.100 H Neutrophils % 80.5 H 71.8 Lymphocytes % 7.8 L 14.2 L Monocytes % 9.3 9.6 Eosinophils % 0.8 2.9 Basophils % 0.3 0.4 Nucleated Red Blood Cells % 0.0 0.0 Immature Granulocytes # 0.250 H 0.160 H Neutrophils # 15.0 H 10.3 H Lymphocytes # 1.5 2.1 Monocytes # 1.7 H 1.4 H Eosinophils # 0.2 0.4 Basophils # 0.1 0.1 Nucleated Red Blood Cells # 0.0 0.0 Sodium Level 140 Potassium Level 3.5 Chloride Level 110 Carbon Dioxide Level 23 Anion Gap 7 Blood Urea Nitrogen 14 Creatinine 0.79 Est Glomerular Filtrat Rate mL/min > 60 Glucose Level 85 Calcium Level 8.2 L Phosphorus Level 4.5 Magnesium Level 2.0 Home Meds Active Scripts Acetaminophen-Codeine* (Acetaminophen-Cod #3*) 300-30 Mg Tab, 1 TAB PO Q4H PRN for PAIN, #10 TAB Prov:MICHOACANO DENTON MD 12/14/14 Acetaminophen* (Acetaminophen*) 500 MG Extra Strength Tablet, 500-1000 MG PO Q6H PRN for PAIN AND OR ELEVATED TEMP, #20 TAB Prov:JOHN GASTELUM PA-C 12/09/14 Nitrofurantoin Monohyd Macrocr* (Macrobid*) 100 Mg Capsr, 100 MG PO BID for 7 Days, CAP Prov:JOHN GASTELUM PA-C 12/09/14 Reported Medications Vit/Fe Fumarate/Fa* ( Vitamin Tablet*) 1 Tab Tablet, 1 TAB PO DAILY 08/05/13 Medications Current Medications IV Flush (NS 3 ml) 3 ml PER PROTOCOL IV ; Start 09/30/18 at 10:00 Ibuprofen (Motrin) 600 mg Q6 PO Last administered on 10/03/18at 05:58; Admin Dose 600 MG; Start 10/01/18 at 12:00 Simethicone (Mylicon) 160 mg Q8H PRN PO .GAS Last administered on 10/02/18at 12:31; Admin Dose 160 MG; Start 09/30/18 at 10:00 Lanolin (Lanolin Hpa) 1 applic BEDSIDE MEDICATION PRN TOP .NIPPLES; Start 09/30/18 at 10:00 Methylergonovine Maleate (Methergine) 0.2 mg ONCE PRN IM .VAGINAL BLEEDING; Start 09/30/18 at 10:00 Carboprost Tromethamine (Hemabate) 250 mcg ONCE PRN IM .VAGINAL BLEEDING; Start 09/30/18 at 10:00 Misoprostol (Cytotec) 1,000 mcg ONCE PRN [place] .VAGINAL BLEEDING; Start 09/30/18 at 10:00 Naloxone HCl (Narcan) 0.2 mg PRN PRN IV RR < 8; Start 09/30/18 at 14:30 Acetaminophen (Tylenol Tab) 500 mg Q4H PRN PO PAIN LEVEL 1-5; Start 09/30/18 at 14:30 Acetaminophen/ Hydrocodone Bitart ([place] (5/325)) 1 tab Q4H PRN PO PAIN LEVEL 1-5 Last administered on 10/03/18at 07:47; Admin Dose 1 TAB; Start 09/30/18 at 14:30 Hydromorphone HCl (Dilaudid) 0.2 mg Q4H PRN IV PAIN LEVEL 1-5; Start 09/30/18 at 14:30 Hydromorphone HCl (Dilaudid) 0.4 mg Q4H PRN IV PAIN LEVEL 6-10; Start 09/30/18 at 14:30 Ondansetron HCl (Zofran Inj) 4 mg Q6H PRN IV NAUSEA AND/OR VOMITING; Start 09/30/18 at 14:30 Zolpidem Tartrate (Ambien) 5 mg HS MAY REPEAT X 1 PRN PO .INSOMNIA; Start 09/30/18 at 14:30 Diphenhydramine HCl (Benadryl) 25 mg Q6H PRN IV .ITCHING; Start 09/30/18 at 14:30 Lactated Ringer's 1,000 ml @ 70 mls/hr [id number] IV Last administered on 10/02/18at 07:23; Admin Dose 70 MLS/HR; Start 10/01/18 at 02:00 Acetaminophen (Tylenol Tab) 650 mg Q4H PRN PO MILD PAIN(1-3)OR ELEVATED TEMP; Start 10/02/18 at 11:30 Oxycodone/ Acetaminophen (Percocet (5/ 325)) 2 tab Q4H PRN PO SEVERE PAIN LEVEL 7-10 Last administered on 10/02/18at 18:39; Admin Dose 2 TAB; Start 10/02/18 at 11:30 Simethicone (Mylicon) 80 mg TID PRN PO DISTENSION/GAS/BLOATING; Start 10/02/18 at 11:30 Bisacodyl (Dulcolax Supp) 10 mg ONCE ONCE [place] ; Start 10/03/18 at 11:30; Stop 10/03/18 at 11:31 Hydrocortisone (Proctozone-Hc) 1 applic PRN PRN [place] HEMORRHOID/EPISIOTMY PAIN; Start 10/03/18 at 13:00 Assessment/Plan Hospital Course (Demo Recall) Assessment and plan: 33-year female status post and tubal ligation postop day # 3 with subsequent postop hematuria, status post surgical bladder repair postop day # 3. #Postop hematuria: Resolving, again secondary to bladder laceration status post postop bladder repair by urologist working with MEMBERSHIP SECRETARY doctor in the OR postop day # 3. -Monitor for any further hematuria, CBC daily -Follow-up postop recommendations from urology and MEMBERSHIP SECRETARY team # and tubal ligation with tachycardia: Tachycardia still present, no chest pain, postop day # 3, see above for the occurring postop complications. Blood pressure stable per -Monitor vital signs very carefully -Follow-up cardiology recommendations -Continue postop care per primary team MEMBERSHIP SECRETARY recommendations including pain control medications, labs, etc. We will continue to follow along with you. YOANDY OSORIO Oct 03, 2018 11:25
[2018-10-03] MEDS ORDERED: BISACODYL 10 MG SUPP PR ONE (11:30)
[2018-10-03] MEDS ORDERED: HYDROCORTISONE 2.5% 30 GM RECT CR PR PRN (13:00)
[2018-10-03] MEDS: SOD CHLORIDE 0.45% 1,000 ML IV SCH (13:14)
--- NOTE | 2018-10-03 13:44 | QN ---
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
--- NOTE | 2018-10-03 18:55 | CONS ---
Consult Date/Type/Reason Admit Date/Time Sep 30, 2018 at 06:10 Initial Consult Date 10/01/18 Type of Consultation: Urology Reason for Consultation Bladder tear, patient is status post cystorrhaphy Requesting Provider: YOANDY OSORIO Date/Time of Note DATE: 10/03/18 TIME: 18:52 Subjective Patient is sitting up in a chair and is comfortable. The Norton catheter is draining clear urine. Objective Vitals Vital Signs Date Temp Pulse Resp B/P (MAP) Pulse Ox O2 O2 Flow FiO2 Time Delivery Rate 10/03/18 112 16:28 10/03/18 98.8 20 138/73 99 Room Air 15:26 (94) 09/30/18 10.0 14:00 Intake and Output 10/02/18 10/02/18 10/03/18 1515:00 23:00 07:00 IntakeIntake Total 500 ml 1850 ml 660 ml OutputOutput Total 1350 ml 850 ml BalanceBalance 500 ml 500 ml -190 ml Exam The Norton catheter is draining clear urine. Results/Medications Result Diagram: 10/03/18 0503 10/03/18 0502 Results 24 hrs Laboratory Tests Test 10/03/18 05:02 10/03/18 05:03 Sodium Level 140 Potassium Level 3.5 Chloride Level 110 Carbon Dioxide Level 23 Anion Gap 7 Blood Urea Nitrogen 14 Creatinine 0.79 Est Glomerular Filtrat Rate mL/min > 60 Glucose Level 85 Calcium Level 8.2 L White Blood Count 14.4 #H Red Blood Count 3.01 L Hemoglobin 9.2 L Hematocrit 28.0 L Mean Corpuscular Volume 93.0 Mean Corpuscular Hemoglobin 30.6 Mean Corpuscular Hemoglobin Concent 32.9 Red Cell Distribution Width 15.1 H Platelet Count 266 Mean Platelet Volume 9.9 Immature Granulocytes % 1.100 H Neutrophils % 71.8 Lymphocytes % 14.2 L Monocytes % 9.6 Eosinophils % 2.9 Basophils % 0.4 Nucleated Red Blood Cells % 0.0 Immature Granulocytes # 0.160 H Neutrophils # 10.3 H Lymphocytes # 2.1 Monocytes # 1.4 H Eosinophils # 0.4 Basophils # 0.1 Nucleated Red Blood Cells # 0.0 Phosphorus Level 4.5 Magnesium Level 2.0 Home Meds Active Scripts Acetaminophen-Codeine* (Acetaminophen-Cod #3*) 300-30 Mg Tab, 1 TAB PO Q4H PRN for PAIN, #10 TAB Prov:MICHOACANO DENTON MD 12/14/14 Acetaminophen* (Acetaminophen*) 500 MG Extra Strength Tablet, 500-1000 MG PO Q6H PRN for PAIN AND OR ELEVATED TEMP, #20 TAB Prov:JOHN GASTELUM PA-C 12/09/14 Nitrofurantoin Monohyd Macrocr* (Macrobid*) 100 Mg Capsr, 100 MG PO BID for 7 Days, CAP Prov:JOHN GASTELUM PA-C 12/09/14 Reported Medications Vit/Fe Fumarate/Fa* ( Vitamin Tablet*) 1 Tab Tablet, 1 TAB PO DAILY 08/05/13 Medications Current Medications IV Flush (NS 3 ml) 3 ml PER PROTOCOL IV ; Start 09/30/18 at 10:00 Simethicone (Mylicon) 160 mg Q8H PRN PO .GAS Last administered on 10/03/18at 17:29; Admin Dose 160 MG; Start 09/30/18 at 10:00 Lanolin (Lanolin Hpa) 1 applic BEDSIDE MEDICATION PRN TOP .NIPPLES; Start 09/30/18 at 10:00 Methylergonovine Maleate (Methergine) 0.2 mg ONCE PRN IM .VAGINAL BLEEDING; Start 09/30/18 at 10:00 Carboprost Tromethamine (Hemabate) 250 mcg ONCE PRN IM .VAGINAL BLEEDING; Start 09/30/18 at 10:00 Misoprostol (Cytotec) 1,000 mcg ONCE PRN [place] .VAGINAL BLEEDING; Start 09/30/18 at 10:00 Naloxone HCl (Narcan) 0.2 mg PRN PRN IV RR < 8; Start 09/30/18 at 14:30 Acetaminophen (Tylenol Tab) 500 mg Q4H PRN PO PAIN LEVEL 1-5; Start 09/30/18 at 14:30 Acetaminophen/ Hydrocodone Bitart ([place] (5/325)) 1 tab Q4H PRN PO PAIN LEVEL 1-5 Last administered on 10/03/18at 17:26; Admin Dose 1 TAB; Start 09/30/18 at 14 :30 Hydromorphone HCl (Dilaudid) 0.2 mg Q4H PRN IV PAIN LEVEL 1-5; Start 09/30/18 at 14:30 Ondansetron HCl (Zofran Inj) 4 mg Q6H PRN IV NAUSEA AND/OR VOMITING; Start 09/30/18 at 14:30 Zolpidem Tartrate (Ambien) 5 mg HS MAY REPEAT X 1 PRN PO .INSOMNIA; Start 09/30/18 at 14:30 Diphenhydramine HCl (Benadryl) 25 mg Q6H PRN IV .ITCHING; Start 09/30/18 at 14:30 Acetaminophen (Tylenol Tab) 650 mg Q4H PRN PO MILD PAIN(1-3)OR ELEVATED TEMP; Start 10/02/18 at 11:30 Oxycodone/ Acetaminophen (Percocet (5/ 325)) 2 tab Q4H PRN PO SEVERE PAIN LEVEL 7-10 Last administered on 10/02/18at 18:39; Admin Dose 2 TAB; Start 10/02/18 at 11:30 Simethicone (Mylicon) 80 mg TID PRN PO DISTENSION/GAS/BLOATING; Start 10/02/18 at 11:30 Hydrocortisone (Proctozone-Hc) 1 applic PRN PRN [place] HEMORRHOID/EPISIOTMY PAIN [place] [facility] administered on 10/03/18at 17:18; Admin Dose 1 APPLIC; Start 10/03/18 at 13:00 Sodium Chloride 1,000 ml @ 70 mls/hr [id number] IV Last administered on 10/03/18at 13:14; Admin Dose 70 MLS/HR; Start 10/03/18 at 12:00 Assessment/Plan Hospital Course (Demo Recall) 33-year-old female status post and cystorrhaphy and evacuation of uterine hematoma. She is postop day 3. She is stable and the Norton catheter is draining clear urine. She has swelling of her left upper extremity and the ultrasound did show: Thrombosis of the left cephalic vein in the upper arm and forearm. Thrombosis of the left basilic vein in the forearm. Thrombosis of superficial veins in the left hand. No sonographic evidence for right venous thrombosis Plan is to keep the Norton catheter in for 10 days then do a CT cystogram and then if no leakage discontinue the Norton catheter. Elevate the left upper extremity. She needs to ambulate and also apply automatic sequential compression device on her lower extremities FAYE CALHOUN MD Oct 03, 2018 18:55
[2018-10-03] MEDS: OXYCODONE/ACETAMINOPHEN (5/325) TAB PO PRN (22:56)
[2018-10-04] VITALS (11 sets, daily range): BP systolic 125–166; BP diastolic 74–83; PULSE 105–115; RESP 18–20
[2018-10-04] MEDS: SOD CHLORIDE 0.45% 1,000 ML IV SCH ×2 (02:39→16:36)
[2018-10-04] MEDS: OXYCODONE/ACETAMINOPHEN (5/325) TAB PO PRN ×4 (04:33→19:49)
[2018-10-04] MEDS: HYDROCODONE/APAP (5/325) TAB PO PRN (09:44)
--- NOTE | 2018-10-04 11:11 | CONS ---
Consult Date/Type/Reason Admit Date/Time Sep 30, 2018 at 06:10 Initial Consult Date Type of Consultation: Urology Requesting Provider: YOANDY OSORIO Date/Time of Note DATE: 10/04/18 TIME: 11:08 Subjective Patient had no acute events overnight, still with some left arm complaints mild but having elevation performed for that. No signs of any bleeding other than some mild vaginal bleeding that has been present. Still with some tachycardia but denies chest pain. Objective Vitals Vital Signs Date Temp Pulse Resp B/P (MAP) Pulse Ox O2 O2 Flow FiO2 Time Delivery Rate 10/04/18 98.8 110 20 146/83 97 10:58 (104) 10/04/18 Room Air 04:08 09/30/18 10.0 14:00 Intake and Output 10/03/18 10/03/18 10/04/18 1515:00 23:00 07:00 IntakeIntake Total 1320 ml 1200 ml OutputOutput Total 1400 ml 1700 ml BalanceBalance -80 ml -500 ml Exam GENERAL: lying in bed, no acute distress HEENT: Pupils equal, round, reactive to light. Extraocular muscles intact. NECK: Supple. No thyromegaly. LUNGS: Clear to auscultation bilaterally. CARDIOVASCULAR: Tachycardic heart rate ABDOMEN: Soft, nondistended. Slightly decreased bowel sounds, bandages in place. MUSCULOSKELETAL: No lower extremity edema bilaterally, left arm on pillow NEUROLOGIC: No focal deficits. 10/02/18: Bilateral upper extremity ultrasound: IMPRESSION: Thrombosis of the left cephalic vein in the upper arm and forearm. Thrombosis of the left basilic vein in the forearm. Thrombosis of superficial veins in the left hand. No sonographic evidence for right venous thrombosis. Results/Medications Result Diagram: 10/04/1824 10/04/1824 Results 24 hrs Laboratory Tests Test 10/04/18 05:19 10/04/18 05:24 Lab Scanned Report BLOOD TRANSFUSION White Blood Count 12.3 H Red Blood Count 2.86 L Hemoglobin 8.8 L Hematocrit 26.5 L Mean Corpuscular Volume 92.7 Mean Corpuscular Hemoglobin 30.8 Mean Corpuscular Hemoglobin Concent 33.2 Red Cell Distribution Width 14.9 H Platelet Count 308 Mean Platelet Volume 9.2 Immature Granulocytes % 0.900 H Neutrophils % 68.7 Lymphocytes % 18.3 Monocytes % 9.1 Eosinophils % 2.6 Basophils % 0.4 Nucleated Red Blood Cells % 0.0 Immature Granulocytes # 0.110 H Neutrophils # 8.5 H Lymphocytes # 2.3 Monocytes # 1.1 H Eosinophils # 0.3 Basophils # 0.1 Nucleated Red Blood Cells # 0.0 Sodium Level 139 Potassium Level 4.0 Chloride Level 109 Carbon Dioxide Level 25 Anion Gap 5 Blood Urea Nitrogen 11 Creatinine 0.58 Est Glomerular Filtrat Rate mL/min > 60 Glucose Level 89 Calcium Level 8.3 L Phosphorus Level 3.8 Magnesium Level 2.1 Home Meds Active Scripts Acetaminophen-Codeine* (Acetaminophen-Cod #3*) 300-30 Mg Tab, 1 TAB PO Q4H PRN for PAIN, #10 TAB Prov:MICHOACANO DENTON MD 12/14/14 Acetaminophen* (Acetaminophen*) 500 MG Extra Strength Tablet, 500-1000 MG PO Q6H PRN for PAIN AND OR ELEVATED TEMP, #20 TAB Prov:JOHN GASTELUM PA-C 12/09/14 Nitrofurantoin Monohyd Macrocr* (Macrobid*) 100 Mg Capsr, 100 MG PO BID for 7 Days, CAP Prov:JOHN GASTELUM PA-C 12/09/14 Reported Medications Vit/Fe Fumarate/Fa* ( Vitamin Tablet*) 1 Tab Tablet, 1 TAB PO DAILY 08/05/13 Medications Current Medications IV Flush (NS 3 ml) 3 ml PER PROTOCOL IV ; Start 09/30/18 at 10:00 Simethicone (Mylicon) 160 mg Q8H PRN PO .GAS Last administered on 10/03/18at 17:29; Admin Dose 160 MG; Start 09/30/18 at 10:00 Lanolin (Lanolin Hpa) 1 applic BEDSIDE MEDICATION PRN TOP .NIPPLES; Start 09/30/18 at 10:00 Methylergonovine Maleate (Methergine) 0.2 mg ONCE PRN IM .VAGINAL BLEEDING; Start 09/30/18 at 10:00 Carboprost Tromethamine (Hemabate) 250 mcg ONCE PRN IM .VAGINAL BLEEDING; Start 09/30/18 at 10:00 Misoprostol (Cytotec) 1,000 mcg ONCE PRN [place] .VAGINAL BLEEDING; Start 09/30/18 at 10:00 Naloxone HCl (Narcan) 0.2 mg PRN PRN IV RR < 8; Start 09/30/18 at 14:30 Acetaminophen (Tylenol Tab) 500 mg Q4H PRN PO PAIN LEVEL 1-5; Start 09/30/18 at 14:30 Acetaminophen/ Hydrocodone Bitart ([place] (5/325)) 1 tab Q4H PRN PO PAIN LEVEL 1-5 Last administered on 10/04/18at 09:44; Admin Dose 1 TAB; Start 09/30/18 at 14:30 Hydromorphone HCl (Dilaudid) 0.2 mg Q4H PRN IV PAIN LEVEL 1-5; Start 09/30/18 at 14:30 Ondansetron HCl (Zofran Inj) 4 mg Q6H PRN IV NAUSEA AND/OR VOMITING; Start 09/30/18 at 14:30 Zolpidem Tartrate (Ambien) 5 mg HS MAY REPEAT X 1 PRN PO .INSOMNIA; Start 09/30/18 at 14:30 Diphenhydramine HCl (Benadryl) 25 mg Q6H PRN IV .ITCHING; Start 09/30/18 at 14:30 Acetaminophen (Tylenol Tab) 650 mg Q4H PRN PO MILD PAIN(1-3)OR ELEVATED TEMP; Start 10/02/18 at 11:30 Oxycodone/ Acetaminophen (Percocet (5/ 325)) 2 tab Q4H PRN PO SEVERE PAIN LEVEL 7-10 Last administered on 10/04/18at 11:00; Admin Dose 2 TAB; Start 10/02/18 at 11:30 Simethicone (Mylicon) 80 mg TID PRN PO DISTENSION/GAS/BLOATING; Start 10/02/18 at 11:30 Hydrocortisone (Proctozone-Hc) 1 applic PRN PRN [place] HEMORRHOID/EPISIOTMY PAIN Last administered on 10/03/18at 17:18; Admin Dose 1 APPLIC; Start 10/03/18 at 13:00 Sodium Chloride 1,000 ml @ 70 mls/hr [id number] IV Last administered on 10/04/18at 02:39; Admin Dose 70 MLS/HR; Start 10/03/18 at 12:00 Assessment/Plan Hospital Course (Demo Recall) Assessment and plan: 33-year female status post and tubal ligation postop day # 3 with subsequent postop hematuria, status post surgical bladder repair postop day # 4. #Postop hematuria: Resolving, again secondary to bladder laceration status post postop bladder repair by urologist working with [employer] doctor in the OR postop day # 4. -Monitor for any further hematuria, CBC daily -Follow-up postop recommendations from urology and [employer] team -Continue warm compresses carefully and left arm elevation for superficial blood clots found in the left upper externally # and tubal ligation with tachycardia: Tachycardia still present, no chest pain, postop day # 4, see above for the occurring postop complications. Blood pressure stable per -Monitor vital signs very carefully -Follow-up cardiology recommendations -Continue postop care per primary team [employer] recommendations including pain control medications, labs, etc. We will continue to follow along with you. YOANDY OSORIO Oct 04, 2018 11:11
[2018-10-04] MEDS ORDERED: hydrALAzine 20 MG INJ IV PRN (12:00)
--- NOTE | 2018-10-04 19:47 | CONS ---
Consult Date/Type/Reason Admit Date/Time Sep 30, 2018 at 06:10 Initial Consult Date 10/01/18 Type of Consultation: Urology Reason for Consultation Bladder tear during a Requesting Provider: YOANDY OSORIO Date/Time of Note DATE: 10/04/18 TIME: 19:45 Subjective Patient is comfortable, sitting up on a chair. She states that earlier she had some pain and it appears that the Norton catheter was not draining because it was kinked Objective Vitals Vital Signs Date Temp Pulse Resp B/P (MAP) Pulse Ox O2 O2 Flow FiO2 Time Delivery Rate 10/04/18 115 16:09 10/04/18 98.4 20 125/75 99 15:46 (92) 10/04/18 Room Air 04:08 09/30/18 10.0 14:00 Intake and Output 10/03/18 10/03/18 10/04/18 1515:00 23:00 07:00 IntakeIntake Total 1320 ml 1200 ml OutputOutput Total 1400 ml 1700 ml BalanceBalance -80 ml -500 ml Exam Norton catheter is draining clear urine. There is no bleeding. Results/Medications Result Diagram: 10/04/1824 10/04/1824 Results 24 hrs Laboratory Tests Test 10/04/18 05:19 10/04/18 05:24 Lab Scanned Report BLOOD TRANSFUSION White Blood Count 12.3 H Red Blood Count 2.86 L Hemoglobin 8.8 L Hematocrit 26.5 L Mean Corpuscular Volume 92.7 Mean Corpuscular Hemoglobin 30.8 Mean Corpuscular Hemoglobin Concent 33.2 Red Cell Distribution Width 14.9 H Platelet Count 308 Mean Platelet Volume 9.2 Immature Granulocytes % 0.900 H Neutrophils % 68.7 Lymphocytes % 18.3 Monocytes % 9.1 Eosinophils % 2.6 Basophils % 0.4 Nucleated Red Blood Cells % 0.0 Immature Granulocytes # 0.110 H Neutrophils # 8.5 H Lymphocytes # 2.3 Monocytes # 1.1 H Eosinophils # 0.3 Basophils # 0.1 Nucleated Red Blood Cells # 0.0 Sodium Level 139 Potassium Level 4.0 Chloride Level 109 Carbon Dioxide Level 25 Anion Gap 5 Blood Urea Nitrogen 11 Creatinine 0.58 Est Glomerular Filtrat Rate mL/min > 60 Glucose Level 89 Calcium Level 8.3 L Phosphorus Level 3.8 Magnesium Level 2.1 Home Meds Active Scripts Acetaminophen-Codeine* (Acetaminophen-Cod #3*) 300-30 Mg Tab, 1 TAB PO Q4H PRN for PAIN, #10 TAB Prov:MICHOACANO DENTON MD 12/14/14 Acetaminophen* (Acetaminophen*) 500 MG Extra Strength Tablet, 500-1000 MG PO Q6H PRN for PAIN AND OR ELEVATED TEMP, #20 TAB Prov:JOHN GASTELUM PA-C 12/09/14 Nitrofurantoin Monohyd Macrocr* (Macrobid*) 100 Mg Capsr, 100 MG PO BID for 7 Days, CAP Prov:JOHN GASTELUM PA-C 12/09/14 Reported Medications Vit/Fe Fumarate/Fa* ( Vitamin Tablet*) 1 Tab Tablet, 1 TAB PO DAILY 08/05/13 Medications Current Medications IV Flush (NS 3 ml) 3 ml PER PROTOCOL IV ; Start 09/30/18 at 10:00 Simethicone (Mylicon) 160 mg Q8H PRN PO .GAS Last administered on 10/03/18at 17:29; Admin Dose 160 MG; Start 09/30/18 at 10:00 Lanolin (Lanolin Hpa) 1 applic BEDSIDE MEDICATION PRN TOP .NIPPLES; Start 09/30/18 at 10:00 Methylergonovine Maleate (Methergine) 0.2 mg ONCE PRN IM .VAGINAL BLEEDING; Sta rt 09/30/18 at 10:00 Carboprost Tromethamine (Hemabate) 250 mcg ONCE PRN IM .VAGINAL BLEEDING; Start 09/30/18 at 10:00 Misoprostol (Cytotec) 1,000 mcg ONCE PRN [place] .VAGINAL BLEEDING; Start 09/30/18 at 10:00 Naloxone HCl (Narcan) 0.2 mg PRN PRN IV RR < 8; Start 09/30/18 at 14:30 Acetaminophen (Tylenol Tab) 500 mg Q4H PRN PO PAIN LEVEL 1-5; Start 09/30/18 at 14:30 Acetaminophen/ Hydrocodone Bitart ([place] (5/325)) 1 tab Q4H PRN PO PAIN LEVEL 1-5 Last administered on 10/04/18at 09:44; Admin Dose 1 TAB; Start 09/30/18 at 14:30 Hydromorphone HCl (Dilaudid) 0.2 mg Q4H PRN IV PAIN LEVEL 1-5; Start 09/30/18 at 14:30 Ondansetron HCl (Zofran Inj) 4 mg Q6H PRN IV NAUSEA AND/OR VOMITING; Start 09/30/18 at 14:30 Zolpidem Tartrate (Ambien) 5 mg HS MAY REPEAT X 1 PRN PO .INSOMNIA; Start 09/30/18 at 14:30 Diphenhydramine HCl (Benadryl) 25 mg Q6H PRN IV .ITCHING; Start 09/30/18 at 14:30 Acetaminophen (Tylenol Tab) 650 mg Q4H PRN PO MILD PAIN(1-3)OR ELEVATED TEMP; Start 10/02/18 at 11:30 Oxycodone/ Acetaminophen (Percocet (5/ 325)) 2 tab Q4H PRN PO SEVERE PAIN LEVEL 7-10 Last administered on 10/04/18at 15:22; Admin Dose 2 TAB; Start 10/02/18 at 11:30 Simethicone (Mylicon) 80 mg TID PRN PO DISTENSION/GAS/BLOATING; Start 10/02/18 at 11:30 Hydrocortisone (Proctozone-Hc) 1 applic PRN PRN [place] HEMORRHOID/EPISIOTMY PAIN Last administered on 10/03/18at 17:18; Admin Dose 1 APPLIC; Start 10/03/18 at 1 3:00 Sodium Chloride 1,000 ml @ 70 mls/hr [id number] IV Last administered on 10/04/18at 02:39; Admin Dose 70 MLS/HR; Start 10/03/18 at 12:00 Hydralazine HCl (Apresoline) 10 mg Q6H PRN IV ELEVATED BLOOD PRESSURE; Start 10/04/18 at 12:00 Assessment/Plan Hospital Course (Demo Recall) 33-year-old female status post and cystorrhaphy and evacuation of uterine hematoma. She is postop day 4. She is stable and the Norton catheter is draining clear urine. She has swelling of her left upper extremity and the ultrasound did show: Thrombosis of the left cephalic vein in the upper arm and forearm. Thrombosis of the left basilic vein in the forearm. Thrombosis of superficial veins in the left hand. No sonographic evidence for right venous thrombosis Plan is to keep the Norton catheter in for 10 days then do a CT cystogram and then if no leakage discontinue the Norton catheter. Elevate the left upper extremity. She needs to ambulate and also apply automatic sequential compression device on her lower extremities FAYE CALHOUN MD Oct 04, 2018 19:47
[2018-10-05] VITALS (9 sets, daily range): BP systolic 142–177; BP diastolic 71–88; PULSE 106–129; RESP 17–20
[2018-10-05] MEDS: OXYCODONE/ACETAMINOPHEN (5/325) TAB PO PRN ×6 (01:24→20:08)
[2018-10-05] MEDS: SOD CHLORIDE 0.45% 1,000 ML IV SCH ×3 (06:54→23:00)
--- NOTE | 2018-10-05 12:54 | CONS ---
Consult Date/Type/Reason Admit Date/Time Sep 30, 2018 at 06:10 Initial Consult Date 10/01/18 Type of Consultation: Urology Reason for Consultation Bladder tear during Requesting Provider: YOANDY OSORIO Date/Time of Note DATE: 10/05/18 TIME: 12:52 Subjective Patient states that she has pain in the suprapubic area and also in her left upper extremity. Objective Vitals Vital Signs Date Temp Pulse Resp B/P (MAP) Pulse Ox O2 O2 Flow FiO2 Time Delivery Rate 10/05/18 98.4 127 17 159/86 95 Room Air 12:17 (110) Intake and Output 10/04/18 10/04/18 10/05/18 1515:00 23:00 07:00 IntakeIntake Total 950 ml 1500 ml OutputOutput Total 950 ml 1700 ml BalanceBalance 0 ml -200 ml Exam The Norton catheter is draining clear urine. Results/Medications Result Diagram: 10/05/18 0450 10/05/18 0450 Results 24 hrs Laboratory Tests Test 10/05/18 04:50 White Blood Count 12.0 H Red Blood Count 3.08 L Hemoglobin 9.3 L Hematocrit 28.6 L Mean Corpuscular Volume 92.9 Mean Corpuscular Hemoglobin 30.2 Mean Corpuscular Hemoglobin Concent 32.5 Red Cell Distribution Width 14.7 H Platelet Count 365 Mean Platelet Volume 9.3 Immature Granulocytes % 1.200 H Neutrophils % 73.0 Lymphocytes % 12.4 L Monocytes % 10.8 Eosinophils % 2.3 Basophils % 0.3 Nucleated Red Blood Cells % 0.0 Immature Granulocytes # 0.150 H Neutrophils # 8.8 H Lymphocytes # 1.5 Monocytes # 1.3 H Eosinophils # 0.3 Basophils # 0.0 Nucleated Red Blood Cells # 0.0 Sodium Level 138 Potassium Level 4.2 Chloride Level 106 Carbon Dioxide Level 26 Anion Gap 6 Blood Urea Nitrogen 13 Creatinine 0.63 Est Glomerular Filtrat Rate mL/min > 60 Glucose Level 94 Calcium Level 8.4 Home Meds Active Scripts Acetaminophen-Codeine* (Acetaminophen-Cod #3*) 300-30 Mg Tab, 1 TAB PO Q4H PRN for PAIN, #10 TAB Prov:MICHOACANO DENTON MD 12/14/14 Acetaminophen* (Acetaminophen*) 500 MG Extra Strength Tablet, 500-1000 MG PO Q6H PRN for PAIN AND OR ELEVATED TEMP, #20 TAB Prov:JOHN GASTELUM PA-C 12/09/14 Nitrofurantoin Monohyd Macrocr* (Macrobid*) 100 Mg Capsr, 100 MG PO BID for 7 Days, CAP Prov:JOHN GASTELUM PA-C 12/09/14 Reported Medications Vit/Fe Fumarate/Fa* ( Vitamin Tablet*) 1 Tab Tablet, 1 TAB PO DAILY 08/05/13 Medications Current Medications IV Flush (NS 3 ml) 3 ml PER PROTOCOL IV ; Start 09/30/18 at 10:00 Simethicone (Mylicon) 160 mg Q8H PRN PO .GAS Last administered on 10/03/18at 17:29; Admin Dose 160 MG; Start 09/30/18 at 10:00 Lanolin (Lanolin Hpa) 1 applic BEDSIDE MEDICATION PRN TOP .NIPPLES; Start 09/30/18 at 10:00 Methylergonovine Maleate (Methergine) 0.2 mg ONCE PRN IM .VAGINAL BLEEDING; Start 09/30/18 at 10:00 Carboprost Tromethamine (Hemabate) 250 mcg ONCE PRN IM .VAGINAL BLEEDING; Start 09/30/18 at 10:00 Misoprostol (Cytotec) 1,000 mcg ONCE PRN [place] .VAGINAL BLEEDING; Start 09/30/18 at 10:00 Naloxone HCl (Narcan) 0.2 mg PRN PRN IV RR < 8; Start 09/30/18 at 14:30 Acetaminophen (Tylenol Tab) 500 mg Q4H PRN PO PAIN LEVEL 1-5; Start 09/30/18 at 14:30 Acetaminophen/ Hydrocodone Bitart ([place] (5/325)) 1 tab Q4H PRN PO PAIN LEVEL 1-5 Last administered on 10/04/18at 09:44; Admin Dose 1 TAB; Start 09/30/18 at 14:30 Hydromorphone HCl (Dilaudid) 0.2 mg Q4H PRN IV PAIN LEVEL 1-5; Start 09/30/18 at 14:30 Ondansetron HCl (Zofran Inj) 4 mg Q6H PRN IV NAUSEA AND/OR VOMITING; Start 09/30/18 at 14:30 Zolpidem Tartrate (Ambien) 5 mg HS MAY REPEAT X 1 PRN PO .INSOMNIA; Start 09/30/18 at 14:30 Diphenhydramine HCl (Benadryl) 25 mg Q6H PRN IV .ITCHING; Start 09/30/18 at 14:30 Acetaminophen (Tylenol Tab) 650 mg Q4H PRN PO MILD PAIN(1-3)OR ELEVATED TEMP; Start 10/02/18 at 11:30 Oxycodone/ Acetaminophen (Percocet (5/ 325)) 2 tab Q4H PRN PO SEVERE PAIN LEVEL 7-10 Last administered on 10/05/18at 11:01; Admin Dose 2 TAB; Start 10/02/18 at 11:30 Simethicone (Mylicon) 80 mg TID PRN PO DISTENSION/GAS/BLOATING; Start 10/02/18 at 11:30 Hydrocortisone (Proctozone-Hc) 1 applic PRN PRN [place] HEMORRHOID/EPISIOTMY PAIN Last administered on 10/03/18at 17:18; Admin Dose 1 APPLIC; Start 10/03/18 at 13:00 Sodium Chloride 1,000 ml @ 70 mls/hr [id number] IV Last administered on 10/04/18at 02:39; Admin Dose 70 MLS/HR; Start 10/03/18 at 12:00 Hydralazine HCl (Apresoline) 10 mg Q6H PRN IV ELEVATED BLOOD PRESSURE; Start 10/04/18 at 12:00 Assessment/Plan Hospital Course (Demo Recall) 33-year-old female status post and cystorrhaphy and evacuation of uterine hematoma. She is postop day 4. She is stable and the Norton catheter is draining clear urine. She has swelling of her left upper extremity and the ultrasound did show: Thrombosis of the left cephalic vein in the upper arm and forearm. Thrombosis of the left basilic vein in the forearm. Thrombosis of superficial veins in the left hand. No sonographic evidence for right venous thrombosis Plan is to keep the Norton catheter in for 10 days then do a CT cystogram and then if no leakage discontinue the Norton catheter. She needs to ambulate and also apply automatic sequential compression device on her lower extremities FAYE CALHOUN MD Oct 05, 2018 12:54
--- NOTE | 2018-10-05 13:01 | CONS ---
Consult Date/Type/Reason Admit Date/Time Sep 30, 2018 at 06:10 Initial Consult Date Type of Consultation: Urology Requesting Provider: YOANDY OSORIO Date/Time of Note DATE: 10/05/18 TIME: 12:59 Subjective Patient denies chest pain, stable tachycardia. Asking when she can go home. No hematuria, seen by urology team earlier today. Objective Vitals Vital Signs Date Temp Pulse Resp B/P (MAP) Pulse Ox O2 O2 Flow FiO2 Time Delivery Rate 10/05/18 98.4 127 17 159/86 95 Room Air 12:17 (110) Intake and Output 10/04/18 10/04/18 10/05/18 1515:00 23:00 07:00 IntakeIntake Total 950 ml 1500 ml OutputOutput Total 950 ml 1700 ml BalanceBalance 0 ml -200 ml Exam GENERAL: lying in bed, no acute distress HEENT: Pupils equal, round, reactive to light. Extraocular muscles intact. NECK: Supple. No thyromegaly. LUNGS: Clear to auscultation bilaterally. CARDIOVASCULAR: Tachycardic heart rate with Sys murmur ABDOMEN: Soft, nondistended. Slightly decreased bowel sounds, bandages in place. MUSCULOSKELETAL: No lower extremity edema bilaterally, left arm on pillow NEUROLOGIC: No focal deficits. Results/Medications Result Diagram: 10/05/1844910/05/18449 Results 24 hrs Laboratory Tests Test 10/05/18 04:50 White Blood Count 12.0 H Red Blood Count 3.08 L Hemoglobin 9.3 L Hematocrit 28.6 L Mean Corpuscular Volume 92.9 Mean Corpuscular Hemoglobin 30.2 Mean Corpuscular Hemoglobin Concent 32.5 Red Cell Distribution Width 14.7 H Platelet Count 365 Mean Platelet Volume 9.3 Immature Granulocytes % 1.200 H Neutrophils % 73.0 Lymphocytes % 12.4 L Monocytes % 10.8 Eosinophils % 2.3 Basophils % 0.3 Nucleated Red Blood Cells % 0.0 Immature Granulocytes # 0.150 H Neutrophils # 8.8 H Lymphocytes # 1.5 Monocytes # 1.3 H Eosinophils # 0.3 Basophils # 0.0 Nucleated Red Blood Cells # 0.0 Sodium Level 138 Potassium Level 4.2 Chloride Level 106 Carbon Dioxide Level 26 Anion Gap 6 Blood Urea Nitrogen 13 Creatinine 0.63 Est Glomerular Filtrat Rate mL/min > 60 Glucose Level 94 Calcium Level 8.4 Home Meds Active Scripts Acetaminophen-Codeine* (Acetaminophen-Cod #3*) 300-30 Mg Tab, 1 TAB PO Q4H PRN for PAIN, #10 TAB Prov:MICHOACANO DENTON MD 12/14/14 Acetaminophen* (Acetaminophen*) 500 MG Extra Strength Tablet, 500-1000 MG PO Q6H PRN for PAIN AND OR ELEVATED TEMP, #20 TAB Prov:JOHN GASTELUM PA-C 12/09/14 Nitrofurantoin Monohyd Macrocr* (Macrobid*) 100 Mg Capsr, 100 MG PO BID for 7 Days, CAP Prov:JOHN GASTELUM PA-C 12/09/14 Reported Medications Vit/Fe Fumarate/Fa* ( Vitamin Tablet*) 1 Tab Tablet, 1 TAB PO DAILY 08/05/13 Medications Current Medications IV Flush (NS 3 ml) 3 ml PER PROTOCOL IV ; Start 09/30/18 at 10:00 Simethicone (Mylicon) 160 mg Q8H PRN PO .GAS Last administered on 10/03/18at 17:29; Admin Dose 160 MG; Start 09/30/18 at 10:00 Lanolin (Lanolin Hpa) 1 applic BEDSIDE MEDICATION PRN TOP .NIPPLES; Start 09/30/18 at 10:00 Methylergonovine Maleate (Methergine) 0.2 mg ONCE PRN IM .VAGINAL BLEEDING; Start 09/30/18 at 10:00 Carboprost Tromethamine (Hemabate) 250 mcg ONCE PRN IM .VAGINAL BLEEDING; Start 09/30/18 at 10:00 Misoprostol (Cytotec) 1,000 mcg ONCE PRN [place] .VAGINAL BLEEDING; Start 09/30/18 at 10:00 Naloxone HCl (Narcan) 0.2 mg PRN PRN IV RR < 8; Start 09/30/18 at 14:30 Acetaminophen (Tylenol Tab) 500 mg Q4H PRN PO PAIN LEVEL 1-5; Start 09/30/18 at 14:30 Acetaminophen/ Hydrocodone Bitart ([place] (5/325)) 1 tab Q4H PRN PO PAIN LEVEL 1-5 Last administered on 10/04/18at 09:44; Admin Dose 1 TAB; Start 09/30/18 at 14:30 Hydromorphone HCl (Dilaudid) 0.2 mg Q4H PRN IV PAIN LEVEL 1-5; Start 09/30/18 at 14:30 Ondansetron HCl (Zofran Inj) 4 mg Q6H PRN IV NAUSEA AND/OR VOMITING; Start 09/30/18 at 14:30 Zolpidem Tartrate (Ambien) 5 mg HS MAY REPEAT X 1 PRN PO .INSOMNIA; Start 09/30/18 at 14:30 Diphenhydramine HCl (Benadryl) 25 mg Q6H PRN IV .ITCHING; Start 09/30/18 at 14:30 Acetaminophen (Tylenol Tab) 650 mg Q4H PRN PO MILD PAIN(1-3)OR ELEVATED TEMP; Start 10/02/18 at 11:30 Oxycodone/ Acetaminophen (Percocet (5/ 325)) 2 tab Q4H PRN PO SEVERE PAIN LEVEL 7-10 Last administered on 10/05/18at 11:01; Admin Dose 2 TAB; Start 10/02/18 at 11:30 Simethicone (Mylicon) 80 mg TID PRN PO DISTENSION/GAS/BLOATING; Start 10/02/18 at 11:30 Hydrocortisone (Proctozone-Hc) 1 applic PRN PRN [place] HEMORRHOID/EPISIOTMY PAIN Last administered on 10/03/18at 17:18; Admin Dose 1 APPLIC; Start 10/03/18 at 13:00 Sodium Chloride 1,000 ml @ 70 mls/hr [id number] IV Last administered on 10/04/18at 02:39; Admin Dose 70 MLS/HR; Start 10/03/18 at 12:00 Hydralazine HCl (Apresoline) 10 mg Q6H PRN IV ELEVATED BLOOD PRESSURE; Start 10/04/18 at 12:00 Assessment/Plan Hospital Course (Demo Recall) Assessment and plan: 33-year female status post and tubal ligation postop day # 5 with subsequent postop hematuria, status post surgical bladder repair postop day # 5. #Postop hematuria: Appears resolved now, again secondary to bladder laceration s tatus post postop bladder repair by urologist working with COSMETIC MAKER doctor in the OR postop day # 5. -Monitor for any further hematuria, CBC daily -Follow-up postop recommendations from urology and COSMETIC [employer]KER team -Continue warm compresses carefully for left arm, and elevation for superficial blood clots found in the left upper externally # and tubal ligation with tachycardia: Tachycardia still present, no chest pain, postop day # 5, see above for the occurring postop complications. Blood pressure stable per -Monitor vital signs very carefully, will also check d-dimer and lower extrem ity ultrasounds -We will restart low-dose IV fluid -Follow-up cardiology recommendations -Continue postop care per primary team COSMETIC MAKER recommendations including pain control medications, labs, etc. We will continue to follow along with you. YOANDY OSORIO Oct 05, 2018 13:01
[2018-10-05] MEDS: DOCUSATE SODIUM 100 MG CAP PO SCH ×2 (15:34→20:07)
[2018-10-05] MEDS ORDERED: SOD CHLORIDE 0.9% 100 ML ONE (17:40)
[2018-10-05] MEDS ORDERED: IOHEXOL 100 ML ONE (17:40)
--- NOTE | 2018-10-05 18:18 | RADRPT ---
Vent Rate: 131 bpm RR Interval: 0 msec [place] Interval: 132 msec QRS Duration: 70 msec QT Interval: 280 msec QTC Interval: 413 msec P-R-T [place]: 64 - 60 - 5 degrees Sinus tachycardia Otherwise normal ECG Electronically Signed By: Juan Rivera
--- NOTE | 2018-10-05 18:29 | QN ---
Documentation Comment Postop day #5 Status post repeat and bilateral tubal ligation, Re-exploration repair of uterine hematoma, bladder laceration repair Patient is stable and afebrile Vital signs stable VS - Last 72 Hours, by Label Date Temp Pulse Resp B/P (MAP) Pulse Ox O2 O2 Flow FiO2 Time Delivery Rate 10/05/18 159/87 18:04 (111) 10/05/18 123 16:28 10/05/18 98.1 125 18 177/88 96 Room Air 15:44 (117) 10/05/18 98.4 127 17 159/86 95 Room Air 12:17 (110) 10/05/18 125 12:06 10/05/18 106 08:22 10/05/18 106 04:00 10/05/18 112 00:00 10/04/18 98.4 110 18 142/75 97 Room Air 23:50 (97) 10/04/18 115 20:00 10/04/18 115 16:09 10/04/18 98.4 114 20 125/75 99 15:46 (92) 10/04/18 106 12:09 10/04/18 98.8 110 20 146/83 97 10:58 (104) 10/04/18 113 08:10 10/04/18 98.5 113 20 166/78 98 07:55 (107) 10/04/18 98.6 111 18 142/74 95 Room Air 04:08 (96) 10/04/18 105 04:00 10/04/18 112 00:00 10/04/18 98.6 113 18 142/79 98 00:00 (100) 10/03/18 98.6 113 19 143/79 98 20:00 (100) 10/03/18 114 20:00 10/03/18 112 16:28 10/03/18 98.8 115 20 138/73 99 Room Air 15:26 (94) 10/03/18 113 12:28 10/03/18 98.0 105 20 132/69 97 Room Air 11:11 (90) 10/03/18 119 08:36 10/03/18 98.5 107 20 136/75 96 Room Air 07:24 (95) 10/03/18 104 04:00 10/03/18 98.1 103 18 120/65 97 04:00 (83) 10/03/18 119 00:00 10/03/18 98.3 116 19 128/68 99 00:00 (88) 10/02/18 97.9 112 19 155/89 98 20:00 (111) 10/02/18 114 20:00 10/02/18 98.7 112 18 142/81 95 Room Air 19:38 (101) Hematology - 72 Hrs Test 10/03/18 05:03 10/04/18 05:24 10/05/18 04:50 Hematocrit 28.0 % (37.0-47.0) 26.5 % (37.0-47.0) 28.6 % (37.0-47.0) L L L Hemoglobin 9.2 8.8 9.3 g/dl (12.0-16.0) L g/dl (12.0-16.0) g/dl (12.0-16.0) L L Mean Corpuscular 30.6 pg (29.0-33.0) 30.8 30.2 Hemoglobin pg (29.0-33.0) pg (29.0-33.0) Mean Corpuscular 32.9 33.2 32.5 Hemoglobin Concent g/dl (32.0-37.0) g/dl (32.0-37.0) g/dl (32.0-37.0) Mean Corpuscular 93.0 92.7 92.9 Volume fl (82.0-101.0) fl (82.0-101.0) fl (82.0-101.0) Mean Platelet 9.9 fl (7.4-10.4) 9.2 fl (7.4-10.4) 9.3 fl (7.4-10.4) Volume Platelet Count 266 308 365 10^3/UL (140-415) 10^3/UL (140-415) 10^3/UL (140-415) Red Blood Count 3.01 2.86 3.08 10^6/ul (4.20-5.40) 10^6/ul (4.20-5.40 10^6/ul (4.20-5.40 L ) L ) L Red Cell 15.1 % (11.5-14.5) 14.9 % (11.5-14.5) 14.7 % (11.5-14.5) Distribution Width H H H White Blood Count 14.4 12.3 12.0 10^3/ul (4.8-10.8) 10^3/ul (4.8-10.8) 10^3/ul (4.8-10.8) #H H H Chemistry Test 10/03/18 05:02 10/03/18 05:03 10/04/18 05:24 10/05/18 04:50 Sodium Level 140 139 138 mmol/L (135-144 mmol/L (135-14 mmol/L (135-14 ) 4) 4) Potassium 3.5 4.0 4.2 Level mmol/L (3.5-5.1 mmol/L (3.5-5. mmol/L (3.5-5. ) 1) 1) Chloride Level 110 109 106 mmol/L (97-110) mmol/L (97-110 mmol/L (97-110 ) ) Carbon Dioxide 23 25 26 Level mmol/L (21-31) mmol/L (21-31) mmol/L (21-31) Anion Gap 7 (5-13) 5 (5-13) 6 (5-13) Blood Urea 14 mg/dl (7-20) 11 13 Nitrogen mg/dl (7-20) mg/dl (7-20) Creatinine 0.79 0.58 0.63 mg/dl (0.44-1.0 mg/dl (0.44-1. mg/dl (0.44-1. 0) 00) 00) Est Glomerular > 60 > 60 > 60 Filtrat mL/min (>60) mL/min (>60) mL/min (>60) Rate mL/min Glucose Level 85 89 94 mg/dl (70-220) mg/dl (70-220) mg/dl (70-220) Calcium Level 8.2 8.3 8.4 mg/dl (8.4-10.2 mg/dl (8.4-10. mg/dl (8.4-10. ) L 2) L 2) Phosphorus 4.5 3.8 Level mg/dl (2.5-4.9 mg/dl (2.5-4.9 ) ) Magnesium 2.0 2.1 Level mg/dl (1.7-2.5 mg/dl (1.7-2.5 ) ) Test 10/05/18 13:10 Troponin I < 0.012 ng/ml (0.000-0. 120) Abdomen soft, incision clean, dry and intact Extremities nontender Assessment and plan Keep Norton in place; instruction will be given by urologist for the removal Advance diet as tolerated Encouraged to ambulate Dulcolax suppository to help with BM Continue with pain meds as needed ANA ROSA TOURE MD Oct 05, 2018 18:29
[2018-10-05] MEDS ORDERED: BISACODYL 10 MG SUPP PR ONE (19:00)
[2018-10-06] VITALS (10 sets, daily range): BP systolic 141–167; BP diastolic 74–113; PULSE 108–120; RESP 18–20
[2018-10-06] MEDS: OXYCODONE/ACETAMINOPHEN (5/325) TAB PO PRN ×4 (03:39→21:16)
[2018-10-06] MEDS: SOD CHLORIDE 0.45% 1,000 ML IV SCH ×4 (03:40→21:32)
[2018-10-06] MEDS: DOCUSATE SODIUM 100 MG CAP PO SCH ×2 (09:05→21:16)
--- NOTE | 2018-10-06 11:22 | CONS ---
Consult Date/Type/Reason Admit Date/Time Sep 30, 2018 at 06:10 Initial Consult Date Type of Consultation: Urology Requesting Provider: YOANDY OSORIO Date/Time of Note DATE: 10/06/18 TIME: 11:20 Subjective Patient lower extremity ultrasound and CTA results reviewed (no clots noted). Having less pain symptoms today. No signs of hematuria. Objective Vitals Vital Signs Date Temp Pulse Resp B/P (MAP) Pulse Ox O2 O2 Flow FiO2 Time Delivery Rate 10/06/18 98.7 114 20 141/80 96 11:04 (100) 10/05/18 Room Air 20:00 Intake and Output 10/05/18 10/05/18 10/06/18 1515:00 23:00 07:00 IntakeIntake Total 1600 ml OutputOutput Total 3400 ml BalanceBalance -1800 ml Exam GENERAL: lying in bed, no acute distress HEENT: Pupils equal, round, reactive to light. Extraocular muscles intact. NECK: Supple. No thyromegaly. LUNGS: Clear to auscultation bilaterally. CARDIOVASCULAR: Tachycardic heart rate with Sys murmur ABDOMEN: Soft, nondistended. Slightly decreased bowel sounds, bandages in place. MUSCULOSKELETAL: No lower extremity edema bilaterally, left arm on pillow NEUROLOGIC: No focal deficits. Results/Medications Result Diagram: 10/06/1852010/06/18520 Results 24 hrs Laboratory Tests Test 10/05/18 13:10 10/06/18 05:21 D-Dimer 3199.96 H D-Dimer Comment Troponin I < 0.012 White Blood Count 14.2 H Red Blood Count 3.12 L Hemoglobin 9.4 L Hematocrit 28.9 L Mean Corpuscular Volume 92.6 Mean Corpuscular Hemoglobin 30.1 Mean Corpuscular Hemoglobin Concent 32.5 Red Cell Distribution Width 14.5 Platelet Count 445 #H Mean Platelet Volume 9.2 Immature Granulocytes % 1.400 H Neutrophils % 71.6 Lymphocytes % 11.7 L Monocytes % 12.5 H Eosinophils % 2.4 Basophils % 0.4 Nucleated Red Blood Cells % 0.0 Immature Granulocytes # 0.200 H Neutrophils # 10.1 H Lymphocytes # 1.7 Monocytes # 1.8 H Eosinophils # 0.3 Basophils # 0.1 Nucleated Red Blood Cells # 0.0 Sodium Level 138 Potassium Level 4.1 Chloride Level 106 Carbon Dioxide Level 26 Anion Gap 6 Blood Urea Nitrogen 12 Creatinine 0.52 Est Glomerular Filtrat Rate mL/min > 60 Glucose Level 97 Calcium Level 8.5 Home Meds Active Scripts Acetaminophen-Codeine* (Acetaminophen-Cod #3*) 300-30 Mg Tab, 1 TAB PO Q4H PRN for PAIN, #10 TAB Prov:MICHOACANO DENTON MD 12/14/14 Acetaminophen* (Acetaminophen*) 500 MG Extra Strength Tablet, 500-1000 MG PO Q6H PRN for PAIN AND OR ELEVATED TEMP, #20 TAB Prov:JOHN GASTELUM PA-C 12/09/14 Nitrofurantoin Monohyd Macrocr* (Macrobid*) 100 Mg Capsr, 100 MG PO BID for 7 Days, CAP Prov:JOHN GASTELUM PA-C 12/09/14 Reported Medications Vit/Fe Fumarate/Fa* ( Vitamin Tablet*) 1 Tab Tablet, 1 TAB PO DAILY 08/05/13 Medications Current Medications IV Flush (NS 3 ml) 3 ml PER PROTOCOL IV ; Start 09/30/18 at 10:00 Simethicone (Mylicon) 160 mg Q8H PRN PO .GAS Last administered on 10/03/18at 17:29; Admin Dose 160 MG; Start 09/30/18 at 10:00 Lanolin (Lanolin Hpa) 1 applic BEDSIDE MEDICATION PRN TOP .NIPPLES; Start 09/30/18 at 10:00 Methylergonovine Maleate (Methergine) 0.2 mg ONCE PRN IM .VAGINAL BLEEDING; Start 09/30/18 at 10:00 Carboprost Tromethamine (Hemabate) 250 mcg ONCE PRN IM .VAGINAL BLEEDING; Start 09/30/18 at 10:00 Misoprostol (Cytotec) 1,000 mcg ONCE PRN [place] .VAGINAL BLEEDING; Start 09/30/18 at 10:00 Naloxone HCl (Narcan) 0.2 mg PRN PRN IV RR < 8; Start 09/30/18 at 14:30 Acetaminophen (Tylenol Tab) 500 mg Q4H PRN PO PAIN LEVEL 1-5; Start 09/30/18 at 14:30 Acetaminophen/ Hydrocodone Bitart ([place] (5/325)) 1 tab Q4H PRN PO PAIN LEVEL 1-5 Last administered on 10/04/18 09:44; Admin Dose 1 TAB; Start 09/30/18 at 14:30 Hydromorphone HCl (Dilaudid) 0.2 mg Q4H PRN IV PAIN LEVEL 1-5; Start 09/30/18 at 14:30 Ondansetron HCl (Zofran Inj) 4 mg Q6H PRN IV NAUSEA AND/OR VOMITING; Start 09/30/18 at 14:30 Zolpidem Tartrate (Ambien) 5 mg HS MAY REPEAT X 1 PRN PO .INSOMNIA; Start 09/30/18 at 14:30 Diphenhydramine HCl (Benadryl) 25 mg Q6H PRN IV .ITCHING; Start 09/30/18 at 14:30 Acetaminophen (Tylenol Tab) 650 mg Q4H PRN PO MILD PAIN(1-3)OR ELEVATED TEMP; Start 10/02/18 at 11:30 Oxycodone/ Acetaminophen (Percocet (5/ 325)) 2 tab Q4H PRN PO SEVERE PAIN LEVEL 7-10 Last administered on 10/06/18at 09:05; Admin Dose 2 TAB; Start 10/02/18 at 11:30 Simethicone (Mylicon) 80 mg TID PRN PO DISTENSION/GAS/BLOATING; Start 10/02/18 at 11:30 Hydrocortisone (Proctozone-Hc) 1 applic PRN PRN [place] HEMORRHOID/EPISIOTMY PAIN Last administered on 10/03/18at 17:18; Admin Dose 1 APPLIC; Start 10/03/18 at 13:00 Hydralazine HCl (Apresoline) 10 mg Q6H PRN IV ELEVATED BLOOD PRESSURE Last administered on 10/05/18at 15:56; Admin Dose 10 MG; Start 10/04/18 at 12:00 Sodium Chloride 1,000 ml @ 100 mls/hr Q10H IV Last administered on 10/06/18at 03:40; Admin Dose 100 MLS/HR; Start 10/05/18 at 13:00 Docusate Sodium (Colace) 100 mg BID PO Last administered on 10/06/18at 09:05; Admin Dose 100 MG; Start 10/05/18 at 14:30 Assessment/Plan Hospital Course (Demo Recall) Assessment and plan: 33-year female status post and tubal ligation postop day # 5 with subsequent postop hematuria, status post surgical bladder repair postop day # 6. #Postop hematuria: Appears resolved now, again secondary to bladder laceration status post postop bladder repair by urologist working with SENIOR RELIABILITY ENGINEER doctor in the OR postop day # 6. -Monitor for any further hematuria, CBC daily -Follow-up postop recommendations from urology and SENIOR RELIABILITY ENGINEER team -Continue warm compresses carefully for left arm, and elevation for superfic ial blood clots found in the left upper externally # and tubal ligation with tachycardia: Tachycardia still present although slightly improved today, no chest pain, postop day # 6, see above for the occurring postop complications. Blood pressure stable. Again CTA and lower extremity ultrasound results did not show any signs of any PE or DVTs, respectively -Monitor vital signs very carefully, will also check d-dimer and lower extremity ultrasounds -For now continue half-normal saline IV fluid -Follow-up cardiology recommendations -Continue postop care per primary team SENIOR RELIABILITY ENGINEER recommendations including pain control medications, labs, etc. We will continue to follow along with you. YOANDY OSORIO Oct 06, 2018 11:22
--- NOTE | 2018-10-06 12:26 | QN ---
Documentation Comment POD #6 s/p repeat with BTL and then a reoperation the same day for a hematoma in the pelvis that appeared to be due to bleeding from a bladder laceration. Dr Henderson was called during surgery and the laceration was repaired. Pt has an in dwelling catheter. Pt has had high blood pressures and has been tachycardic on previous days. Pt has swelling of the left arm which was found to have some superficial venous occlusions. This was the side where her IV had been. She now has some significant blistering on the left hand that she says was from heat applied to the hand? to treat the swelling. Pt also reports the usual postoperative discomfort in the pelvic region but says her left leg is not as strong as it normally is and if she turns onto her left side then it hurts but otherwise it doesn't. She had Doppler studies yesterday of the b/l lower extremities which were negative. The baby is at home and generally the pt is weepy as would much rather be at home. T=98.7 BP 141/80 Abdomen soft, nondistended. Incision is clean, dry and intact. Left side is lightly more sensitive to touch than the right. Left arm 2+ edema with 2 very large blisters on the back of the hand with a dressing over it. Right arm has a catheter in the upper arm. Both legs are equal with 1+ edema but neither is tender and the calves and thighs are soft. WBC 14.2 Hgb 9.4 Plts 445K. D-Dimers 3199. P: Will recheck the CBC tomorrow as the WBC is very slightly up from yesterday. Pt is afebrile currently and is not on antibiotics. If becomes febrile and/or WBC continues to rise would initiate antibiotics and consider evaluation/treatment for septic pelvic thrombophlebitis. KIMANI VALERIO MD Oct 06, 2018 12:08
--- NOTE | 2018-10-06 16:30 | CONS ---
Consult Date/Type/Reason Admit Date/Time Sep 30, 2018 at 06:10 Initial Consult Date 10/01/18 Type of Consultation: Urology Reason for Consultation Bladder tear status post Requesting Provider: YOANDY OSORIO Date/Time of Note DATE: 10/06/18 TIME: 16:27 Subjective Patient complains of pain in the left lower quadrant and states her left lower extremity is weaker than the right Objective Vitals Vital Signs Date Temp Pulse Resp B/P (MAP) Pulse Ox O2 O2 Flow FiO2 Time Delivery Rate 10/06/18 98.1 113 19 147/80 97 15:28 (102) 10/05/18 Room Air 20:00 Intake and Output 10/05/18 10/05/18 10/06/18 1515:00 23:00 07:00 IntakeIntake Total 1600 ml OutputOutput Total 3400 ml BalanceBalance -1800 ml Exam The incision appears to be clean and dry. The Norton catheter is draining clear urine. Results/Medications Result Diagram: 10/06/18 0521 10/06/1821 Results 24 hrs Laboratory Tests Test 10/06/18 05:21 10/06/18 12:52 White Blood Count 14.2 H Red Blood Count 3.12 L Hemoglobin 9.4 L Hematocrit 28.9 L Mean Corpuscular Volume 92.6 Mean Corpuscular Hemoglobin 30.1 Mean Corpuscular Hemoglobin Concent 32.5 Red Cell Distribution Width 14.5 Platelet Count 445 #H Mean Platelet Volume 9.2 Immature Granulocytes % 1.400 H Neutrophils % 71.6 Lymphocytes % 11.7 L Monocytes % 12.5 H Eosinophils % 2.4 Basophils % 0.4 Nucleated Red Blood Cells % 0.0 Immature Granulocytes # 0.200 H Neutrophils # 10.1 H Lymphocytes # 1.7 Monocytes # 1.8 H Eosinophils # 0.3 Basophils # 0.1 Nucleated Red Blood Cells # 0.0 Sodium Level 138 Potassium Level 4.1 Chloride Level 106 Carbon Dioxide Level 26 Anion Gap 6 Blood Urea Nitrogen 12 Creatinine 0.52 Est Glomerular Filtrat Rate mL/min > 60 Glucose Level 97 Calcium Level 8.5 Urine Color STRAW Urine Clarity CLEAR Urine pH 7.0 Urine Specific [place] 1.006 Urine Ketones TRACE A Urine Nitrite NEGATIVE Urine Bilirubin NEGATIVE Urine Urobilinogen NEGATIVE Urine Leukocyte Esterase NEGATIVE Urine Microscopic RBC 10 H Urine Microscopic WBC 3 Urine Mucus FEW A Urine Hemoglobin 2+ H Urine Glucose NEGATIVE Urine Total Protein NEGATIVE Home Meds Active Scripts Acetaminophen-Codeine* (Acetaminophen-Cod #3*) 300-30 Mg Tab, 1 TAB PO Q4H PRN for PAIN, #10 TAB Prov:MICHOACANO DENTON MD 12/14/14 Acetaminophen* (Acetaminophen*) 500 MG Extra Strength Tablet, 500-1000 MG PO Q6H PRN for PAIN AND OR ELEVATED TEMP, #20 TAB Prov:JOHN GASTELUM PA-C 12/09/14 Nitrofurantoin Monohyd Macrocr* (Macrobid*) 100 Mg Capsr, 100 MG PO BID for 7 Days, CAP Prov:JOHN GASTELUM PA-C 12/09/14 Reported Medications Vit/Fe Fumarate/Fa* ( Vitamin Tablet*) 1 Tab Tablet, 1 TAB PO DAILY 08/05/13 Medications Current Medications IV Flush (NS 3 ml) 3 ml PER PROTOCOL IV ; Start 09/30/18 at 10:00 Simethicone (Mylicon) 160 mg Q8H PRN PO .GAS Last administered on 10/03/18at 17:29; Admin Dose 160 MG; Start 09/30/18 at 10:00 Lanolin (Lanolin Hpa) 1 applic BEDSIDE MEDICATION PRN TOP .NIPPLES; Start 09/30/18 at 10:00 Methylergonovine Maleate (Methergine) 0.2 mg ONCE PRN IM .VAGINAL BLEEDING; Start 09/30/18 at 10:00 Carboprost Tromethamine (Hemabate) 250 mcg ONCE PRN IM .VAGINAL BLEEDING; Start 09/30/18 at 10:00 Misoprostol (Cytotec) 1,[address] .VAGINAL BLEEDING; Start 09/30/18 at 10:00 Naloxone HCl (Narcan) 0.2 mg PRN PRN IV RR < 8; Start 09/30/18 at 14:30 Acetaminophen (Tylenol Tab) 500 mg Q4H PRN PO PAIN LEVEL 1-5; Start 09/30/18 at 14:30 Acetaminophen/ Hydrocodone Bitart ([place] (5/325)) 1 tab Q4H PRN PO PAIN LEVEL 1-5 Last administered on 10/04/18at 09:44; Admin Dose 1 TAB; Start 09/30/18 at 14:30 Hydromorphone HCl (Dilaudid) 0.2 mg Q4H PRN IV PAIN LEVEL 1-5; Start 09/30/18 at 14:30 Ondansetron HCl (Zofran Inj) 4 mg Q6H PRN IV NAUSEA AND/OR VOMITING; Start 09/30/18 at 14:30 Zolpidem Tartrate (Ambien) 5 mg HS MAY REPEAT X 1 PRN PO .INSOMNIA; Start 09/30/18 at 14:30 Diphenhydramine HCl (Benadryl) 25 mg Q6H PRN IV .ITCHING; Start 09/30/18 at 14:30 Acetaminophen (Tylenol Tab) 650 mg Q4H PRN PO MILD PAIN(1-3)OR ELEVATED TEMP; Start 10/02/18 at 11:30 Oxycodone/ Acetaminophen (Percocet (5/ 325)) 2 tab Q4H PRN PO SEVERE PAIN LEVEL 7-10 Last administered on 10/06/18at 12:48; Admin Dose 2 TAB; Start 10/02/18 at 11:30 Simethicone (Mylicon) 80 mg TID PRN PO DISTENSION/GAS/BLOATING; Start 10/02/18 at 11:30 Hydrocortisone (Proctozone-Hc) [address] HEMORRHOID/EPISIOTMY PAIN Last administered on 10/03/18at 17:18; Admin Dose 1 APPLIC; Start 10/03/18 at 13:00 Hydralazine HCl (Apresoline) 10 mg Q6H PRN IV ELEVATED BLOOD PRESSURE Last administered on 10/05/18at 15:56; Admin Dose 10 MG; Start 10/04/18 at 12:00 Sodium Chloride 1,000 ml @ 75 mls/hr [id number] IV Last administered on 10/06/18at 03:40; Admin Dose 100 MLS/HR; Start 10/05/18 at 13:00 Docusate Sodium (Colace) 100 mg BID PO Last administered on 10/06/18at 09:05; Admin Dose 100 MG; Start 10/05/18 at 14:30 Assessment/Plan Hospital Course (Demo Recall) 33-year-old female status post and cystorrhaphy and evacuation of uterine hematoma. She is postop day 4. She is stable and the Norton catheter is draining clear urine. She has swelling of her left upper extremity and the ultrasound did show: Thrombosis of the left cephalic vein in the upper arm and forearm. Thrombosis of the left basilic vein in the forearm. Thrombosis of superficial veins in the left hand. No sonographic evidence for right venous thrombosis Plan is to keep the Norton catheter in for 10 [address] then do a CT cystogram and then if no leakage discontinue the Norton catheter. She needs to ambulate and also apply automatic sequential compression device on her lower extremities. Her white count is elevated. I will send urine for culture and sensitivity. FAYE CALHOUN MD Oct 06, 2018 16:30
[2018-10-07] VITALS (11 sets, daily range): BP systolic 145–187; BP diastolic 86–98; PULSE 103–122; RESP 16–20
[2018-10-07] MEDS: OXYCODONE/ACETAMINOPHEN (5/325) TAB PO PRN ×5 (05:02→21:53)
[2018-10-07] MEDS: SOD CHLORIDE 0.45% 1,000 ML IV SCH ×3 (06:35→23:24)
[2018-10-07] MEDS: DOCUSATE SODIUM 100 MG CAP PO SCH ×2 (08:07→20:46)
[2018-10-07] MEDS: METOPROLOL (XL) 50 MG TAB PO SCH (12:07)
--- NOTE | 2018-10-07 12:21 | QN ---
Documentation Comment progress note pod 7 patient seen and evaluated aao x3 rey clear positive ambulation, tolerating diet, positive bowel movement complaining of pain in left hand vs pulse 110 lung cta b/l cvs positive s1 s2 rrr abo c/d/i no distention appropriate tenderness extremity positive tenderness/infiltrate of back of left hand h a/ sp repeat cd with b/l tubal ligation, reexploration repair of uterine hematoma, bladder laceration repair stable, tachycardia improving pod 7 p/ f/u social work consult physical therapy for help with ambulation metroprolol precribes by video system repairer wound care for blister behind the left hand dvt prophylaxis SADI CHAPARRO MD Oct 07, 2018 12:21
[2018-10-07] MEDS ORDERED: LACTATED RINGER'S 1,000 ML IV ONE (17:30)
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
[2018-10-07] MEDS: SILVER SULFADIAZINE 1% 25 GM CR TOP SCH (18:44)
[2018-10-07] MEDS: ENOXAPARIN 100 MG/ML SYG SC SCH (20:58)
[2018-10-07] MEDS ORDERED: ENOXAPARIN 100 MG/ML SYG SC SCH (21:00)
[2018-10-08] VITALS (9 sets, daily range): BP systolic 132–159; BP diastolic 68–98; PULSE 62–120; RESP 18–20
[2018-10-08] MEDS: SOD CHLORIDE 0.45% 1,000 ML IV SCH ×2 (06:00→13:32)
[2018-10-08] MEDS: OXYCODONE/ACETAMINOPHEN (5/325) TAB PO PRN ×4 (06:05→20:50)
[2018-10-08] MEDS: DOCUSATE SODIUM 100 MG CAP PO SCH ×2 (09:01→20:50)
[2018-10-08] MEDS: METOPROLOL (XL) 50 MG TAB PO SCH (09:03)
[2018-10-08] MEDS: ENOXAPARIN 100 MG/ML SYG SC SCH ×2 (09:29→20:56)
[2018-10-08] MEDS: SILVER SULFADIAZINE 1% 25 GM CR TOP SCH (10:22)
--- NOTE | 2018-10-08 11:48 | DELSUM ---
Delivery Summary A-C Datetime Report Generated by CPN: 10/08/2018 11:48 DELIVERY PERSONNEL Station Jailer: Main, Viktoriya MATERNAL INFORMATION Delivery Anesthesia: Spinal Medications in Delivery: ancef and pitocin Delivery QBL (ml): 600 Placenta Cultured: No Maternal Complications: None LABOR SUMMARY EDC: 10/05/2018 00:00 No. Babies in Womb: 1 Attempted: No Labor Anesthesia: None LABOR INFORMATION Reason for Induction: Not Applicable Oxytocin: N/A Group B Beta Strep: Positive Antibiotics # of Doses: 1 IN OR Steroids Given: None Reason Steroids Not Administered: Not Applicable MEMBRANES Membranes Rupture Method: Artificial Rupture of Membranes: 09/30/2018 09:03 Length of Rupture (hr): 0.02 Amniotic Fluid Color: Clear Amniotic Fluid Amount: Moderate Amniotic Fluid Odor: None STAGES OF LABOR Stage 3 hr: 0 Stage 3 min: 1 CSECTION DELIVERY Primary Indication: > 2 Previous CSections CSection Urgency: Non Elective CSection Incidence: Repeat Labor: N/A CSection Incision: Lower Uterine Transverse Sterilization Procedure: Parnell BABY A INFORMATION Infant Delivery Date/Time: 09/30/2018 09:04 Method of Delivery: Born in Route : No : N/A Forceps: N/A Vacuum Extraction: Successful Shoulder Dystocia : N/A SHOULDER DYSTOCIA BABY A Delivery Date/Time: 09/30/2018 09:04 PRESENTATION/POSITION BABY A Presentation: Cephalic Cephalic Presentation: Vertex Vertex Position: Left Occipital Anterior Breech Presentation: N/A PLACENTA INFORMATION BABY A Placenta Delivery Time : 09/30/2018 09:05 Placenta Method of Delivery: Manual Removal Placenta Status: Delivered SCORES BABY A Heart Rate 1 min: >100 bpm Resp Effort 1 min: Good Cry Reflex Irritability 1 min: Cough/Sneeze/Pulls Away Muscle Tone 1 min: Active Motion Color 1 min: Blue/Pale Resuscitation Effort 1 min: Tactile Stimulation SCORE 1 MIN: 8 Heart Rate 5 min: >100 bpm Resp Effort 5 min: Good Cry Reflex Irritability 5 min: Cough/Sneeze/Pulls Away Muscle Tone 5 min: Active Motion Color 5 min: Body [place], Extremit Blue Resuscitation Effort 5 min: N/A SCORE 5 MIN: 9 INFORMATION BABY A Gestational Age at Delivery: 39.2 Gestational Status: Full Term- 39- 40.6 Weeks Outcome : Liveborn Infant Condition : Stable Sex: Male IDENTIFICATION/MEDS BABY A ID Band Number: [id number] ID Band Location: Right Leg; Left Arm Sensor Applied: Yes Sensor Location : Cord Clamp Vitamin K Given : Aquamephyton 1 mg IM Erythromycin Given: Given Both Eyes WEIGHT/LENGTH BABY A Infant Birthweight (gm): 3815 Infant Weight (lb): 8 Weight (oz): 7 Infant Length (in): 21.00 Infant Length (cm): 53.34 CORD INFORMATION BABY A No. Cord Vessels: 3 Nuchal Cord : N/A Cord Blood Taken: Yes Suction: Mouth; Nose ASSESSMENT BABY A Complications: None Physical Findings at Delivery: Within Normal Limits Infant Respirations: Appears Normal Online Advertising Director/ALS Called : Yes Care By: November. Transferred To: Remains with Mother
[2018-10-08] MEDS: SENNA TAB PO SCH ×2 (13:00→20:49)
[2018-10-08] MEDS ORDERED: BISACODYL 10 MG SUPP PR ONE (13:30)
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
--- NOTE | 2018-10-08 19:56 | QN ---
Documentation Comment progress note pod 8 patient seen and evaluated aao x3 rey clear positive ambulation, tolerating diet, positive bowel movement no complaints vs T 98.2 p 100 r 19 bp 159/98 lung cta b/l cvs positive s1 s2 rrr abo c/d/i no distention appropriate tenderness extremity dressing on left hand a/ sp repeat cd with b/l tubal ligation, reexploration repair of uterine hematoma, bladder laceration repair stable, tachycardia improving, occasional elevated bp's, superficial venous thrombophlebitis pod 8 p/ f/u social work consult/ supportive employment case manager for home care physical therapy for help with ambulation metroprolol precribes by police officer booking wound care for blister behind the left hand dvt prophylaxis ct urogram pod 10 per urology f/u wit medicine/ cardiology for elevated bp's preeclamptic precautions SADI CHAPARRO MD Oct 08, 2018 19:56
[2018-10-09] VITALS (11 sets, daily range): BP systolic 116–136; BP diastolic 70–93; PULSE 94–116; RESP 18–20
[2018-10-09] MEDS: SOD CHLORIDE 0.45% 1,000 ML IV SCH ×4 (01:55→22:37)
[2018-10-09] MEDS: OXYCODONE/ACETAMINOPHEN (5/325) TAB PO PRN ×5 (01:56→22:37)
--- NOTE | 2018-10-09 07:58 | QN ---
Documentation Comment progress note pod 9 patient seen and evaluated aao x3 patient complaining of left lower quandrant pain especially when she is lying on her left side rey clear positive ambulation, tolerating diet, positive bowel movement no complaints vs stable afebrile lung cta b/l cvs positive s1 s2 rrr abo c/d/i no distention left lower quadrant tenderness extremity dressing on left hand a/ sp repeat cd with b/l tubal ligation, reexploration repair of uterine hematoma, bladder laceration repair stable, tachycardia improving, occasional elevated bp's, superficial venous thrombophlebitis, elevated platelet pelvic pain (left side) pod 8 p/ f/u social work consult/ case management specialist for home care physical therapy for help with ambulation metroprolol precribes by customer experience retail clerk wound care for blister behind the left hand dvt prophylaxis ct urogram pod 10 per urology f/u wit medicine/ cardiology for elevated platelets preeclamptic precautions pelvic ultraound SADI CHAPARRO MD Oct 09, 2018 07:58
[2018-10-09] MEDS: DOCUSATE SODIUM 100 MG CAP PO SCH ×2 (08:40→21:05)
[2018-10-09] MEDS: SENNA TAB PO SCH ×2 (08:40→21:05)
[2018-10-09] MEDS: METOPROLOL (XL) 50 MG TAB PO SCH (08:40)
[2018-10-09] MEDS: SILVER SULFADIAZINE 1% 25 GM CR TOP SCH (08:41)
[2018-10-09] MEDS: ENOXAPARIN 100 MG/ML SYG SC SCH (08:48)
[2018-10-09] MEDS ORDERED: SOD CHLORIDE 0.9% 100 ML ONE (12:20)
[2018-10-09] MEDS ORDERED: IOHEXOL 300MG/ML 150 ML BTL ONE (12:20)
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
--- NOTE | 2018-10-09 14:43 | CONS ---
Assessment/Plan Assessment/Plan Hospital Course (Demo Recall) #LUE DVT -agree with holding anticoagulation in the setting of the RP hematoma -there is very low risk for this to embolize in the lung #Retroperitoneal hematoma - As seen on abdominal CT 10/09/18, 14.5 x 11.6 x 5.1 cm - Hold anticoagulation. - Gynecology to decide surgical vs expectant management. CT-guided needle drainage may be an option as well. #Thrombocytosis -I believe this is secondary to undelyign inflammation and/ or iron deficiency -will start IV iron -if the platelets do not normalize once her clinical status stabilize we can perform a hypercoagulable workup at that time Consultation Date/Type/Reason Admit Date/Time Sep 30, 2018 at 06:10 Date/Time of Note DATE: 10/09/18 TIME: 14:35 Hx of Present Illness MS Kearns is a pleasant 33 yo female with history of C sxn x 4 who most recently underwent a C sxn on [facility] on 09/30/18 . This was complicated by post op bleeding and hematuria as well as admission to ICU. Pt was taken back to the OR and wad found with a bladder laceration for which she underwent repair. 10/02 after the surgery, pt was noted to have pain in LUE. A LUE ultrasound was done which revealed: Thrombosis of the left cephalic vein in the upper arm and forearm, thrombosis of the left basilic vein in the forearm, thrombosis of superficial veins in the left hand. Pt was thus started on Lovenox. 10/09/18 Due to abdominal pain pt had abdominal ultrasound done which revealed a 19cm fluid collection in the LLQ concerning for hematoma. A follow up CT was done which confirmed these findings are revealed an 11.6cm hematoma. Lovenox is currently on hold. We have been consulted for further workup of the LUE thrombosis as well as thrombocytosis as noted on CBC. Patients platelets are currently > 600. Constitutional: diaphoresis, poor po Eyes: no complaints ENT: no complaints Respiratory: no complaints Cardiovascular: no complaints Gastrointestinal: pain, decreased appetite, nausea Genitourinary: no complaints Musculoskeletal: no complaints Skin: no complaints Past Medical History Medical History: no pertinent history Home Meds Active Scripts Acetaminophen-Codeine* (Acetaminophen-Cod #3*) 300-30 Mg Tab, 1 TAB PO Q4H PRN for PAIN, #10 TAB Prov:TEEHEE,MICHOACANO N. MD 12/14/14 Acetaminophen* (Acetaminophen*) 500 MG Extra Strength Tablet, 500-1000 MG PO Q6H PRN for PAIN AND OR ELEVATED TEMP, #20 TAB Prov:JOHN GASTELUM PA-C 12/09/14 Nitrofurantoin Monohyd Macrocr* (Macrobid*) 100 Mg Capsr, 100 MG PO BID for 7 Days, CAP Prov:JOHN GASTELUM PA-C 12/09/14 Reported Medications Vit/Fe Fumarate/Fa* ( Vitamin Tablet*) 1 Tab Tablet, 1 TAB PO DAILY 08/05/13 Medications Current Medications IV Flush (NS 3 ml) 3 ml PER PROTOCOL IV ; Start 09/30/18 at 10:00 Simethicone (Mylicon) 160 mg Q8H PRN PO .GAS Last administered on 10/03/18at 17:29; Admin Dose 160 MG; Start 09/30/18 at 10:00 Lanolin (Lanolin Hpa) 1 applic BEDSIDE MEDICATION PRN TOP .NIPPLES; Start 09/30/18 at 10:00 Methylergonovine Maleate (Methergine) 0.2 mg ONCE PRN IM .VAGINAL BLEEDING; Start 09/30/18 at 10:00 Carboprost Tromethamine (Hemabate) 250 mcg ONCE PRN IM .VAGINAL BLEEDING; Start 09/30/18 at 10:00 Misoprostol (Cytotec) 1,000 mcg ONCE PRN RI .VAGINAL BLEEDING; Start 09/30/18 at 10:00 Naloxone HCl (Narcan) 0.2 mg PRN PRN IV RR < 8; Start 09/30/18 at 14:30 Acetaminophen (Tylenol Tab) 500 mg Q4H PRN PO PAIN LEVEL 1-5; Start 09/30/18 at 14:30 Acetaminophen/ Hydrocodone Bitart ([place] (5/325)) 1 tab Q4H PRN PO PAIN LEVEL 1-5 Last administered on 10/04/18at 09:44; Admin Dose 1 TAB; Start 09/30/18 at 14:30 Hydromorphone HCl (Dilaudid) 0.2 mg Q4H PRN IV PAIN LEVEL 1-5; Start 09/30/18 at 14:30 Ondansetron HCl (Zofran Inj) 4 mg Q6H PRN IV NAUSEA AND/OR VOMITING; Start 09/30/18 at 14:30 Zolpidem Tartrate (Ambien) 5 mg HS MAY REPEAT X 1 PRN PO .INSOMNIA; Start 09/30/18 at 14:30 Diphenhydramine HCl (Benadryl) 25 mg Q6H PRN IV .ITCHING; Start 09/30/18 at 14:30 Acetaminophen (Tylenol Tab) 650 mg Q4H PRN PO MILD PAIN(1-3)OR ELEVATED TEMP; Start 10/02/18 at 11:30 Oxycodone/ Acetaminophen (Percocet (5/ 325)) 2 tab Q4H PRN PO SEVERE PAIN LEVEL 7-10 Last administered on 10/09/18 13:09; Admin Dose 2 TAB; Start 10/02/18 at 11:30 Simethicone (Mylicon) 80 mg TID PRN PO DISTENSION/GAS/BLOATING; Start 10/02/18 at 11:30 Hydrocortisone (Proctozone-Hc) 1 applic PRN PRN RI HEMORRHOID/EPISIOTMY PAIN Last administered on 10/03/18 17:18; Admin Dose 1 APPLIC; Start 10/03/18 at 13:00 Hydralazine HCl (Apresoline) 10 mg Q6H PRN IV ELEVATED BLOOD PRESSURE Last administered on 10/05/18 15:56; Admin Dose 10 MG; Start 10/04/18 at 12:00 Sodium Chloride 1,000 ml @ 75 mls/hr [id number] IV Last administered on 10/09/18 07:23; Admin Dose 75 MLS/HR; Start 10/05/18 at 13:00 Docusate Sodium (Colace) 100 mg BID PO Last administered on 10/09/18 08:40; Admin Dose 100 MG; Start 10/05/18 at 14:30 Metoprolol Succinate (Toprol Xl) 50 mg DAILY PO Last administered on 10/09/18 08:40; Admin Dose 50 MG; Start 10/07/18 at 12:00 Silver Sulfadiazine (Thermazene 1% 25 Gm) 1 applic DAILY TOP Last administered on 10/09/18 08:41; Admin Dose 1 APPLIC; Start 10/07/18 at 18:00 Senna (Senokot) 2 tab BID PO Last administered on 10/09/18at 08:40; Admin Dose 2 TAB; Start 10/08/18 at 13:00 Allergies: Coded Allergies: No Known Allergy (Unverified , 10/08/18) Past Surgical History Past Surgical Hx: no surgical history, other ( x4, tubal ligation) Family History Significant Family History: no pertinent family hx Social History Alcohol Use: none Smoking Status: Never smoker Drug Use: none Exam/Review of Systems Exam Vitals Vital Signs Date Temp Pulse Resp B/P (MAP) Pulse Ox O2 O2 Flow FiO2 Time Delivery Rate 10/09/18 97.9 98 19 135/93 98 14:09 (107) 10/07/18 Room Air 16:30 Intake and Output 10/08/18 10/08/18 10/09/18 1515:00 23:00 07:00 IntakeIntake Total 800 ml 800 ml OutputOutput Total 2300 ml 1480 ml BalanceBalance -1500 ml -680 ml Constitutional: alert, oriented Psych: no complaints Head: normocephalic Eyes: nl conjunctiva ENMT: nl external ears & nose Neck: supple Respiratory: clear to auscultation Cardiovascular: regular rate and rhythm Gastrointestinal: soft, surgical scars Musculoskeletal: nl extremities to inspection Results Result Diagram: 10/08/1895410/08/18 0955 Medications Medication Current Medications IV Flush (NS 3 ml) 3 ml PER PROTOCOL IV ; Start 09/30/18 at 10:00 Simethicone (Mylicon) 160 mg Q8H PRN PO .GAS Last administered on 10/03/18at 17:29; Admin Dose 160 MG; Start 09/30/18 at 10:00 Lanolin (Lanolin Hpa) 1 applic BEDSIDE MEDICATION PRN TOP .NIPPLES; Start 09/30/18 at 10:00 Methylergonovine Maleate (Methergine) 0.2 mg ONCE PRN IM .VAGINAL BLEEDING; Start 09/30/18 at 10:00 Carboprost Tromethamine (Hemabate) 250 mcg ONCE PRN IM .VAGINAL BLEEDING; Start 09/30/18 at 10:00 Misoprostol (Cytotec) 1,000 mcg ONCE PRN RI .VAGINAL BLEEDING; Start 09/30/18 at 10:00 Naloxone HCl (Narcan) 0.2 mg PRN PRN IV RR < 8; Start 09/30/18 at 14:30 Acetaminophen (Tylenol Tab) 500 mg Q4H PRN PO PAIN LEVEL 1-5; Start 09/30/18 at 14:30 Acetaminophen/ Hydrocodone Bitart ([place] (5/325)) 1 tab Q4H PRN PO PAIN LEVEL 1-5 Last administered on 10/04/18 09:44; Admin Dose 1 TAB; Start 09/30/18 at 14:30 Hydromorphone HCl (Dilaudid) 0.2 mg Q4H PRN IV PAIN LEVEL 1-5; Start 09/30/18 at 14:30 Ondansetron HCl (Zofran Inj) 4 mg Q6H PRN IV NAUSEA AND/OR VOMITING; Start 09/30/18 at 14:30 Zolpidem Tartrate (Ambien) 5 mg HS MAY REPEAT X 1 PRN PO .INSOMNIA; Start 09/30/18 at 14:30 Diphenhydramine HCl (Benadryl) 25 mg Q6H PRN IV .ITCHING; Start 09/30/18 at 14:30 Acetaminophen (Tylenol Tab) 650 mg Q4H PRN PO MILD PAIN(1-3)OR ELEVATED TEMP; Start 10/02/18 at 11:30 Oxycodone/ Acetaminophen (Percocet (5/ 325)) 2 tab Q4H PRN PO SEVERE PAIN LEVEL 7-10 Last administered on 10/09/18 13:09; Admin Dose 2 TAB; Start 10/02/18 at 11:30 Simethicone (Mylicon) 80 mg TID PRN PO DISTENSION/GAS/BLOATING; Start 10/02/18 at 11:30 Hydrocortisone (Proctozone-Hc) 1 applic PRN PRN RI HEMORRHOID/EPISIOTMY PAIN Last administered on 10/03/18 17:18; Admin Dose 1 APPLIC; Start 10/03/18 at 13:00 Hydralazine HCl (Apresoline) 10 mg Q6H PRN IV ELEVATED BLOOD PRESSURE Last administered on 10/05/18 15:56; Admin Dose 10 MG; Start 10/04/18 at 12:00 Sodium Chloride 1,000 ml @ 75 mls/hr [id number] IV Last administered on 10/09/18 07:23; Admin Dose 75 MLS/HR; Start 10/05/18 at 13:00 Docusate Sodium (Colace) 100 mg BID PO Last administered on 10/09/18 08:40; A dmin Dose 100 MG; Start 10/05/18 at 14:30 Metoprolol Succinate (Toprol Xl) 50 mg DAILY PO Last administered on 10/09/18 08:40; Admin Dose 50 MG; Start 10/07/18 at 12:00 Silver Sulfadiazine (Thermazene 1% 25 Gm) 1 applic DAILY TOP Last administered on 10/09/18 08:41; Admin Dose 1 APPLIC; Start 10/07/18 at 18:00 Senna (Senokot) 2 tab BID PO Last administered on 10/09/18 08:40; Admin Dose 2 TAB; Start 10/08/18 at 13:00 DHIRAJ PUALA M.D. Oct 09, 2018 14:43
--- NOTE | 2018-10-09 18:05 | QN ---
Documentation Comment I discussed patient evaluation of the CT scan with Dr. Mobley HE RECOMMEND TO CONTINUE TO FOLLOW PATIENT CLOSELY AND SERIAL cbc he will also follow up with patient tomorrow. patient is currently stable with no signs of active internal bleeding SADI CHAPARRO MD Oct 09, 2018 18:05
--- NOTE | 2018-10-09 19:47 | CONS ---
Consult Date/Type/Reason Admit Date/Time Sep 30, 2018 at 06:10 Initial Consult Date 10/01/18 Type of Consultation: Urology Reason for Consultation Bladder tear during a Requesting Provider: SADI CHAPARRO MD Date/Time of Note DATE: 10/09/18 TIME: 19:41 Subjective Patient is comfortable. She has pain in the left lower quadrant Objective Vitals Vital Signs Date Temp Pulse Resp B/P (MAP) Pulse Ox O2 O2 Flow FiO2 Time Delivery Rate 10/09/18 98 16:00 10/09/18 97.7 20 136/86 95 15:40 (103) 10/07/18 Room Air 16:30 Intake and Output 10/08/18 10/08/18 10/09/18 1515:00 23:00 07:00 IntakeIntake Total 800 ml 800 ml OutputOutput Total 2300 ml 1480 ml BalanceBalance -1500 ml -680 ml Exam Abdomen is soft, her incision is clean, the Norton catheter is draining clear urine. Results/Medications Result Diagram: 10/09/18 1840 10/08/18 0955 Results 24 hrs Laboratory Tests Test 10/09/18 14:51 10/09/18 18:40 Iron Level 24 L Total Iron Binding Capacity 276 Percent Iron Saturation 9 L White Blood Count 13.5 H Red Blood Count 3.60 L Hemoglobin 10.6 L Hematocrit 33.3 L Mean Corpuscular Volume 92.5 Mean Corpuscular Hemoglobin 29.4 Mean Corpuscular Hemoglobin Concent 31.8 L Red Cell Distribution Width 13.9 Platelet Count 698 H Mean Platelet Volume 8.8 Immature Granulocytes % 4.100 H Neutrophils % 64.0 Lymphocytes % 19.3 Monocytes % 8.9 Eosinophils % 3.2 Basophils % 0.5 Nucleated Red Blood Cells % 0.0 Immature Granulocytes # 0.560 H Neutrophils # 8.7 H Lymphocytes # 2.6 Monocytes # 1.2 H Eosinophils # 0.4 Basophils # 0.1 Nucleated Red Blood Cells # 0.0 Home Meds Active Scripts Acetaminophen-Codeine* (Acetaminophen-Cod #3*) 300-30 Mg Tab, 1 TAB PO Q4H PRN for PAIN, #10 TAB Prov:MICHOACANO DENTON MD 12/14/14 Acetaminophen* (Acetaminophen*) 500 MG Extra Strength Tablet, 500-1000 MG PO Q6H PRN for PAIN AND OR ELEVATED TEMP, #20 TAB Prov:JOHN GASTELUM PA-C 12/09/14 Nitrofurantoin Monohyd Macrocr* (Macrobid*) 100 Mg Capsr, 100 MG PO BID for 7 Days, CAP Prov:JOHN GASTELUM PA-C 12/09/14 Reported Medications Vit/Fe Fumarate/Fa* ( Vitamin Tablet*) 1 Tab Tablet, 1 TAB PO DAILY 08/05/13 Medications Current Medications IV Flush (NS 3 ml) 3 ml PER PROTOCOL IV ; Start 09/30/18 at 10:00 Simethicone (Mylicon) 160 mg Q8H PRN PO .GAS Last administered on 10/03/18at 17 :29; Admin Dose 160 MG; Start 09/30/18 at 10:00 Lanolin (Lanolin Hpa) 1 applic BEDSIDE MEDICATION PRN TOP .NIPPLES; Start 09/30/18 at 10:00 Methylergonovine Maleate (Methergine) 0.2 mg ONCE PRN IM .VAGINAL BLEEDING; Start 09/30/18 at 10:00 Carboprost Tromethamine (Hemabate) 250 mcg ONCE PRN IM .VAGINAL BLEEDING; Start 09/30/18 at 10:00 Misoprostol (Cytotec) 1,000 mcg ONCE PRN NV .VAGINAL BLEEDING; Start 09/30/18 at 10:00 Naloxone HCl (Narcan) 0.2 mg PRN PRN IV RR < 8; Start 09/30/18 at 14:30 Acetaminophen (Tylenol Tab) 500 mg Q4H PRN PO PAIN LEVEL 1-5; Start 09/30/18 at 14:30 Acetaminophen/ Hydrocodone Bitart ([place] (5/325)) 1 tab Q4H PRN PO PAIN LEVEL 1-5 Last administered on 10/04/18at 09:44; Admin Dose 1 TAB; Start 09/30/18 at 14:30 Hydromorphone HCl (Dilaudid) 0.2 mg Q4H PRN IV PAIN LEVEL 1-5; Start 09/30/18 at 14:30 Ondansetron HCl (Zofran Inj) 4 mg Q6H PRN IV NAUSEA AND/OR VOMITING; Start 09/30/18 at 14:30 Zolpidem Tartrate (Ambien) 5 mg HS MAY REPEAT X 1 PRN PO .INSOMNIA; Start 09/30/18 at 14:30 Diphenhydramine HCl (Benadryl) 25 mg Q6H PRN IV .ITCHING; Start 09/30/18 at 14:30 Acetaminophen (Tylenol Tab) 650 mg Q4H PRN PO MILD PAIN(1-3)OR ELEVATED TEMP; Start 10/02/18 at 11:30 Oxycodone/ Acetaminophen (Percocet (5/ 325)) 2 tab Q4H PRN PO SEVERE PAIN LEVEL 7-10 Last administered on 10/09/18 18:28; Admin Dose 2 TAB; Start 10/02/18 at 11:30 Simethicone (Mylicon) 80 mg TID PRN PO DISTENSION/GAS/BLOATING; Start 10/02/18 at 11:30 Hydrocortisone (Proctozone-Hc) 1 applic PRN PRN [place] HEMORRHOID/EPISIOTMY PAIN Last administered on 10/03/18 17:18; Admin Dose 1 APPLIC; Start 10/03/18 at 13:00 Hydralazine HCl (Apresoline) 10 mg Q6H PRN IV ELEVATED BLOOD PRESSURE Last administered on 10/05/18 15:56; Admin Dose 10 MG; Start 10/04/18 at 12:00 Sodium Chloride 1,000 ml @ 75 mls/hr [id number] IV Last administered on 10/09/18 07:23; Admin Dose 75 MLS/HR; Start 10/05/18 at 13:00 Docusate Sodium (Colace) 100 mg BID PO Last administered on 10/09/18 08:40; Admin Dose 100 MG; Start 10/05/18 at 14:30 Metoprolol Succinate (Toprol Xl) 50 mg DAILY PO Last administered on 10/09/18 08:40; Admin Dose 50 MG; Start 10/07/18 at 12:00 Silver Sulfadiazine (Thermazene 1% 25 Gm) 1 applic DAILY TOP Last administered on 10/09/18 08:41; Admin Dose 1 APPLIC; Start 10/07/18 at 18:00 Senna (Senokot) 2 tab BID PO Last administered on 10/09/18 08:40; Admin Dose 2 TAB; Start 4/2/19 at 13:00 Imaging IMPRESSION: 1. Recent section with an enlarged uterus with mild distension of the endometrial cavity. There is a substantial left extraperiton eal hematoma within the left pelvis extending superiorly into the retroperitoneal abdomen measuring approximately 11.6 by a 5.1 cm in cross diameter and extending in a cranial caudad dimension over approximately 14.5 cm. 2. There is an ovoid fluid collection containing air bubbles with wall enhance ment located between the left uterine body and bladder measuring 3.2 x 2.5 x 2.3 cm. A small abscess cannot be excluded. There is also a small fluid collection containing bubbles of air posterior to the left pelvic rectus muscle measuring 3.2 x 1.5 x 1.3 cm. 3. Fluid in air bubbles are seen within the inferior anterior pelvic wall musculature compatible with postoperative change. 4. There are a few bubbles of free intraperitoneal air and a trace amount of intraperitoneal fluid. 5. A Norton catheter is seen within a poorly distended bladder giving the wall of thickened appearance. There is intraluminal air which is probably iatrogenic. The kidneys and ureters appear unremarkable. 5. Hepatomegaly with no focal lesion Assessment/Plan Hospital Course (Demo Recall) 33-year-old female status post and cystorrhaphy and evacuation of uterine hematoma. She is postop day 4. She is stable and the Norton catheter is draining clear urine. She has swelling of her left upper extremity and the ultrasound did show: Thrombosis of the left cephalic vein in the upper arm and forearm. Thrombosis of the left basilic vein in the forearm. Thrombosis of superficial veins in the left hand. No sonographic evidence for right venous thrombosis The patient underwent a CT scan of the abdomen and pelvis with IV contrast today and that showed: 1. Recent section with an enlarged uterus with mild distension of the endometrial cavity. There is a substantial left extraperitoneal hematoma within the left pelvis extending superiorly into the retroperitoneal abdomen measuring approximately 11.6 by a 5.1 cm in cross diameter and extending in a cranial caudad dimension over approximately 14.5 cm. 2. There is an ovoid fluid collection containing air bubbles with wall enhancement located between the left uterine body and bladder measuring 3.2 x 2.5 x 2.3 cm. A small abscess cannot be excluded. There is also a small fluid collection containing bubbles of air posterior to the left pelvic rectus muscle measuring 3.2 x 1.5 x 1.3 cm. 3. Fluid in air bubbles are seen within the inferior anterior pelvic wall musculature compatible with postoperative change. 4. There are a few bubbles of free intraperitoneal air and a trace amount of intraperitoneal fluid. 5. A Norton catheter is seen within a poorly distended bladder giving the wall of thickened appearance. There is intraluminal air which is probably iatrogenic. The kidneys and ureters appear unremarkable. 5. Hepatomegaly with no focal lesion CT scan was done without contrast into the bladder to see if the bladder has healed. I did order a CT cystogram where the bladder is filled with contrast material through the Norton and do the CT scan of the pelvis therefore that will be done tomorrow. FAYE CALHOUN MD Oct 09, 2018 19:47
[2018-10-10] VITALS (15 sets, daily range): BP systolic 111–135; BP diastolic 65–90; PULSE 88–111; RESP 18–20
[2018-10-10] MEDS: OXYCODONE/ACETAMINOPHEN (5/325) TAB PO PRN ×4 (07:03→21:08)
[2018-10-10] MEDS: DOCUSATE SODIUM 100 MG CAP PO SCH ×2 (08:21→21:06)
[2018-10-10] MEDS: METOPROLOL (XL) 50 MG TAB PO SCH (08:22)
[2018-10-10] MEDS: SENNA TAB PO SCH ×2 (08:22→21:06)
[2018-10-10] MEDS: SILVER SULFADIAZINE 1% 25 GM CR TOP SCH (08:23)
--- NOTE | 2018-10-10 08:25 | QN ---
Documentation Comment progress note pod 9 patient seen and evaluated patient is ambulating, toleration regular diet, positive bowel movements aao x3 patient complaining of left lower quandrant pain is less since yesterday rey clear positive ambulation, tolerating diet, positive bowel movement no complaints vs stable afebrile lung cta b/l cvs positive s1 s2 rrr abo c/d/i no distention left lower quadrant tenderness extremity dressing on left hand ct: pelvic hematoma a/ sp repeat cd with b/l tubal ligation, reexploration repair of uterine hematoma, bladder laceration repair , superficial venous thrombophlebitis, elevated platelet pelvic pain (left side) secondary to pelvic hematoma. stable afebrile pod 9 p/ f/u social work consult/ pillowcase cleaner for home care physical therapy for help with ambulation metroprolol precribes by public safety police wound care for blister behind the left hand dvt prophylaxis ct urogram pod [address] Mobley ( general Surgeon) and Dr. Brooke (e learning specialist onc): regarding pelvic hematoma continue to monitor patient. no surgical intervention at this time if patient is stable no suspected internal bleeding. I also discussed with Dr. May (interventional radiologist) no radiological intervention necessary since patient is hemodynamically stable. SADI CHAPARRO MD Oct 10, 2018 08:25
--- NOTE | 2018-10-10 13:25 | CONS ---
Assessment/Plan Assessment/Plan Hospital Course (Demo Recall) 1. Recent , cystorrhaphy and evacuation of uterine hematoma, Left extraperitoneal hematoma within the left pelvis extending superiorly into retroperitoneal abdomen, 11.6 x 5 0.1 cm x 14.5 cm; ovoid fluid collection containing air bubbles with wall enhancement between left uterine body and bladder concerning for an abscess -Close monitoring -Serial H&H> if continues to have concern for retroperitoneal bleed or infected hematoma may consider surgical intervention/IR at that point -Consider antibiotics for possible abscess> defer to gynecology and urology -Correct coagulopathy -Hold off anticoagulants 2. Vaginal bleed: -As above -Deferred to gynecology 3.Leukocytosis: - As above 4. Normocytic normochromic anemia: - Monitor and transfuse as needed 5. Thrombocytosis: -Per hematology 6. Elevated d-dimer CTA no evidence of pulmonary emboli 7. Bilateral upper extremity DVTs: -Hold off anticoagulants at this point 08/10 #1 Thank you. Patient seen and examined in collaboration with Dr. Gama Mobley. Consultation Date/Type/Reason Admit Date/Time Sep 30, 2018 at 06:10 Date of Consultation: Oct 10, 2018 Type of Consult Surgical Reason for Consultation Retroperitoneal bleed Date/Time of Note DATE: 10/10/18 TIME: 13:01 Hx of Present Illness Shaylee Kearns is a 33-year-old 6 para 3 who recently underwent previous who was initially admitted for repeat and bilateral tubal ligation. She was taken back to the OR the same day for an exploratory laparotomy, evacuation of left broad ligament hematoma and bladder perforation repair. While in-house, she was also noted to have thrombosis of the left cepha lic vein and left basilic vein, hence she was started on Lovenox. She was then noted to have abdominal pain for which imaging was done and revealed a 19 cm fluid collection in the left lower quadrant concerning for a hematoma. CT imaging was performed showing substantial left extraperitoneal hematoma within the left pelvis extending superiorly into retroperitoneal abdomen, 11.6 x 5 0.1 cm x 14.5 cm. She was also noted to have an ovoid fluid collection containing air bubbles with wall enhancement between left uterine body and bladder concerning for an abscess. No recent fevers, chills, congested cough, chest pain, palpitations, nausea, vomiting, change in bowel or bladder habits, hematuria, seizure, rash. General surgery was asked to evaluate. 12 point ros was performed and is negative except as stated in HPI. Past Medical History Medical History: no pertinent history Home Meds Active Scripts Acetaminophen-Codeine* (Acetaminophen-Cod #3*) 300-30 Mg Tab, 1 TAB PO Q4H PRN for PAIN, #10 TAB Prov:MICHOACANO DENTON MD 12/14/14 Acetaminophen* (Acetaminophen*) 500 MG Extra Strength Tablet, 500-1000 MG PO Q6H PRN for PAIN AND OR ELEVATED TEMP, #20 TAB Prov:JOHN GASTELUM PA-C 12/09/14 Nitrofurantoin Monohyd Macrocr* (Macrobid*) 100 Mg Capsr, 100 MG PO BID for 7 Days, CAP Prov:JOHN GASTELUM PA-C 12/09/14 Reported Medications Vit/Fe Fumarate/Fa* ( Vitamin Tablet*) 1 Tab Tablet, 1 TAB PO DAILY 08/05/13 Medications Current Medications IV Flush (NS 3 ml) 3 ml PER PROTOCOL IV ; Start 09/30/18 at 10:00 Simethicone (Mylicon) 160 mg Q8H PRN PO .GAS Last administered on 10/03/18at 17:29; Admin Dose 160 MG; Start 09/30/18 at 10:00 Lanolin (Lanolin Hpa) 1 applic BEDSIDE MEDICATION PRN TOP .NIPPLES; Start 09/30/18 at 10:00 Methylergonovine Maleate (Methergine) 0.2 mg ONCE PRN IM .VAGINAL BLEEDING; Start 09/30/18 at 10:00 Carboprost Tromethamine (Hemabate) 250 mcg ONCE PRN IM .VAGINAL BLEEDING; Start 09/30/18 at 10:00 Misoprostol (Cytotec) 1,000 mcg ONCE PRN [place] .VAGINAL BLEEDING; Start 09/30/18 at 10:00 Naloxone HCl (Narcan) 0.2 mg PRN PRN IV RR < 8; Start 09/30/18 at 14:30 Acetaminophen (Tylenol Tab) 500 mg Q4H PRN PO PAIN LEVEL 1-5; Start 09/30/18 at 14:30 Acetaminophen/ Hydrocodone Bitart ([place] (5/325)) 1 tab Q4H PRN PO PAIN LEVEL 1-5 Last administered on 10/04/18 09:44; Admin Dose 1 TAB; Start 09/30/18 at 14:30 Hydromorphone HCl (Dilaudid) 0.2 mg Q4H PRN IV PAIN LEVEL 1-5; Start 09/30/18 at 14:30 Ondansetron HCl (Zofran Inj) 4 mg Q6H PRN IV NAUSEA AND/OR VOMITING; Start 09/30/18 at 14:30 Zolpidem Tartrate (Ambien) 5 mg HS MAY REPEAT X 1 PRN PO .INSOMNIA; Start 09/30/18 at 14:30 Diphenhydramine HCl (Benadryl) 25 mg Q6H PRN IV .ITCHING; Start 09/30/18 at 14:30 Acetaminophen (Tylenol Tab) 650 mg Q4H PRN PO MILD PAIN(1-3)OR ELEVATED TEMP; Start 10/02/18 at 11:30 Oxycodone/ Acetaminophen (Percocet (5/ 325)) 2 tab Q4H PRN PO SEVERE PAIN LEVEL 7-10 Last administered on 10/10/18at 11:51; Admin Dose 2 TAB; Start 10/02/18 at 11:30 Simethicone (Mylicon) 80 mg TID PRN PO DISTENSION/GAS/BLOATING; Start 10/02/18 at 11:30 Hydrocortisone (Proctozone-Hc) 1 applic PRN PRN [place] HEMORRHOID/EPISIOTMY PAIN Last administered on 10/03/18at 17:18; Admin Dose 1 APPLIC; Start 10/03/18 at 13:00 Hydralazine HCl (Apresoline) 10 mg Q6H PRN IV ELEVATED BLOOD PRESSURE Last administered on 10/05/18at 15:56; Admin Dose 10 MG; Start 10/04/18 at 12:00 Sodium Chloride 1,000 ml @ 75 mls/hr [id number] IV Last administered on 10/09/18 22:37; Admin Dose 75 MLS/HR; Start 10/05/18 at 13:00 Docusate Sodium (Colace) 100 mg BID PO Last administered on 10/10/18 08:21; Admin Dose 100 MG; Start 10/05/18 at 14:30 Metoprolol Succinate (Toprol Xl) 50 mg DAILY PO Last administered on 10/10/18at 08:22; Admin Dose 50 MG; Start 10/07/18 at 12:00 Silver Sulfadiazine (Thermazene 1% 25 Gm) 1 applic DAILY TOP Last administered on 10/10/18at 08:23; Admin Dose 1 APPLIC; Start 10/07/18 at 18:00 Senna (Senokot) 2 tab BID PO Last administered on 10/10/18at 08:22; Admin Dose 2 TAB; Start 10/08/18 at 13:00 Allergies: Coded Allergies: No Known Allergy (Unverified , 10/08/18) Past Surgical History As above Past Surgical Hx: other ( x4, tubal ligation) Social History Alcohol Use: none Smoking Status: Never smoker Drug Use: none Exam/Review of Systems Exam Vitals Vital Signs Date Temp Pulse Resp B/P (MAP) Pulse Ox O2 O2 Flow FiO2 Time Delivery Rate 10/10/18 88 12:38 10/10/18 18 131/75 94 10:27 (93) 10/10/18 97.6 08:03 10/07/18 Room Air 16:30 Intake and Output 10/09/18 10/09/18 10/10/18 1515:00 23:00 07:00 IntakeIntake Total 1000 ml 1000 ml 1910 ml OutputOutput Total 1400 ml 5000 ml BalanceBalance 1000 ml -400 ml -3090 ml Constitutional: alert, oriented Psych: nl mood/affect; No anxiety Head: normocephalic, atraumatic Eyes: nl conjunctiva, EOMI, nl lids, nl sclera ENMT: nl external ears & nose, nl lips & teeth, mucosa pink and moist Neck: supple, non-tender; No jvd Respiratory: clear to auscultation, normal air movement; No labored breathing Cardiovascular: regular rate and rhythm, nl pulses Gastrointestinal: soft, distended (minimal), tender (Left lower quadrant), other (No skin changes, bruising, discoloration) Genitourinary - Female: other ([place], clear urine; vaginal bleeding) Musculoskeletal: nl extremities to inspection Extremities: normal pulses Neurological: nl mental status, nl speech, nl strength Skin: No rash or lesions Results Result Diagram: 10/10/18 0524 10/08/18 0955 Results 24hrs Laboratory Tests Test 10/09/18 14:51 10/09/18 18:40 10/10/18 05:24 Iron Level 24 L Total Iron Binding Capacity 276 Percent Iron Saturation 9 L White Blood Count 13.5 H 12.3 H Red Blood Count 3.60 L 3.52 L Hemoglobin 10.6 L 10.4 L Hematocrit 33.3 L 32.8 L Mean Corpuscular Volume 92.5 93.2 Mean Corpuscular Hemoglobin 29.4 29.5 Mean Corpuscular Hemoglobin Concent 31.8 L 31.7 L Red Cell Distribution Width 13.9 13.9 Platelet Count 698 H 718 H Mean Platelet Volume 8.8 8.7 Immature Granulocytes % 4.100 H 4.600 H Neutrophils % 64.0 62.2 Lymphocytes % 19.3 19.2 Monocytes % 8.9 9.3 Eosinophils % 3.2 3.9 Basophils % 0.5 0.8 Nucleated Red Blood Cells % 0.0 0.0 Immature Granulocytes # 0.560 H 0.570 H Neutrophils # 8.7 H 7.6 H Lymphocytes # 2.6 2.4 Monocytes # 1.2 H 1.2 H Eosinophils # 0.4 0.5 Basophils # 0.1 0.1 Nucleated Red Blood Cells # 0.0 0.0 Medications Medication Current Medications IV Flush (NS 3 ml) 3 ml PER PROTOCOL IV ; Start 09/30/18 at 10:00 Simethicone (Mylicon) 160 mg Q8H PRN PO .GAS Last administered on 10/03/18at 17:29; Admin Dose 160 MG; Start 09/30/18 at 10:00 Lanolin (Lanolin Hpa) 1 applic BEDSIDE MEDICATION PRN TOP .NIPPLES; Start 09/30/18 at 10:00 Methylergonovine Maleate (Methergine) 0.2 mg ONCE PRN IM .VAGINAL BLEEDING; Start 09/30/18 at 10:00 Carboprost Tromethamine (Hemabate) 250 mcg ONCE PRN IM .VAGINAL BLEEDING; Start 09/30/18 at 10:00 Misoprostol (Cytotec) 1,000 mcg ONCE PRN [place] .VAGINAL BLEEDING; Start 09/30/18 at 10:00 Naloxone HCl (Narcan) 0.2 mg PRN PRN IV RR < 8; Start 09/30/18 at 14:30 Acetaminophen (Tylenol Tab) 500 mg Q4H PRN PO PAIN LEVEL 1-5; Start 09/30/18 at 14:30 Acetaminophen/ Hydrocodone Bitart ([place] (5/325)) 1 tab Q4H PRN PO PAIN LEVEL 1-5 Last administered on 10/04/18at 09:44; Admin Dose 1 TAB; Start 09/30/18 at 14:30 Hydromorphone HCl (Dilaudid) 0.2 mg Q4H PRN IV PAIN LEVEL 1-5; Start 09/30/18 at 14:30 Ondansetron HCl (Zofran Inj) 4 mg Q6H PRN IV NAUSEA AND/OR VOMITING; Start 09/30/18 at 14:30 Zolpidem Tartrate (Ambien) 5 mg HS MAY REPEAT X 1 PRN PO .INSOMNIA; Start 09/30/18 at 14:30 Diphenhydramine HCl (Benadryl) 25 mg Q6H PRN IV .ITCHING; Start 09/30/18 at 14:30 Acetaminophen (Tylenol Tab) 650 mg Q4H PRN PO MILD PAIN(1-3)OR ELEVATED TEMP; Start 10/02/18 at 11:30 Oxycodone/ Acetaminophen (Percocet (5/ 325)) 2 tab Q4H PRN PO SEVERE PAIN LEVEL 7-10 Last administered on 10/10/18at 11:51; Admin Dose 2 TAB; Start 10/02/18 at 11:30 Simethicone (Mylicon) 80 mg TID PRN PO DISTENSION/GAS/BLOATING; Start 10/02/18 at 11:30 Hydrocortisone (Proctozone-Hc) 1 applic PRN PRN [place] HEMORRHOID/EPISIOTMY PAIN Last administered on 10/03/18at 17:18; Admin Dose 1 APPLIC; Start 10/03/18 at 13:00 Hydralazine HCl (Apresoline) 10 mg Q6H PRN IV ELEVATED BLOOD PRESSURE Last administered on 10/05/18at 15:56; Admin Dose 10 MG; Start 10/04/18 at 12:00 Sodium Chloride 1,000 ml @ 75 mls/hr [id number] IV Last administered on 10/09/18at 22:37; Admin Dose 75 MLS/HR; Start 10/05/18 at 13:00 Docusate Sodium (Colace) 100 mg BID PO Last administered on 10/10/18 08:21; Admin Dose 100 MG; Start 10/05/18 at 14:30 Metoprolol Succinate (Toprol Xl) 50 mg DAILY PO Last administered on 10/10/18 08:22; Admin Dose 50 MG; Start 10/07/18 at 12:00 Silver Sulfadiazine (Thermazene 1% 25 Gm) 1 applic DAILY TOP Last administered on 10/10/18 08:23; Admin Dose 1 APPLIC; Start 10/07/18 at 18:00 Senna (Senokot) 2 tab BID PO Last administered on 10/10/18 08:22; Admin Dose 2 TAB; Start 10/08/18 at 13:00 CONSUELO LUBIN NP Oct 10, 2018 13:13
[2018-10-10] MEDS ORDERED: SOD CHLORIDE 0.9% 500 ML ONE (14:37)
[2018-10-10] MEDS ORDERED: IOHEXOL 300MG/ML 30 ML BTL ONE ×2 (14:37)
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
[2018-10-10] MEDS: SOD CHLORIDE 0.45% 1,000 ML IV SCH (17:21)
--- NOTE | 2018-10-10 19:24 | CONS ---
Consult Date/Type/Reason Admit Date/Time Sep 30, 2018 at 06:10 Initial Consult Date 10/01/18 Type of Consultation: Urology Reason for Consultation Bladder tear during . Requesting Provider: SADI CHAPARRO MD Date/Time of Note DATE: 10/10/18 TIME: 19:18 Subjective Patient is comfortable and she complains of pain in the left side of the abdomen. Objective Vitals Vital Signs Date Temp Pulse Resp B/P (MAP) Pulse Ox O2 O2 Flow FiO2 Time Delivery Rate 10/10/18 98.1 94 18 128/77 98 18:15 (94) 10/07/18 Room Air 16:30 Intake and Output 10/09/18 10/09/18 10/10/18 1515:00 23:00 07:00 IntakeIntake Total 1000 ml 1000 ml 1910 ml OutputOutput Total 1400 ml 5000 ml BalanceBalance 1000 ml -400 ml -3090 ml Exam Norton catheter is draining clear urine. She did have the CT cystogram today and that showed no extravasation from the bladder. That indicates that the bladder has healed. But the patient still has a large hematoma in the retroperitoneal area. Results/Medications Result Diagram: 10/10/18 0524 10/08/18 0955 Results 24 hrs Laboratory Tests Test 10/10/18 05:24 White Blood Count 12.3 H Red Blood Count 3.52 L Hemoglobin 10.4 L Hematocrit 32.8 L Mean Corpuscular Volume 93.2 Mean Corpuscular Hemoglobin 29.5 Mean Corpuscular Hemoglobin Concent 31.7 L Red Cell Distribution Width 13.9 Platelet Count 718 H Mean Platelet Volume 8.7 Immature Granulocytes % 4.600 H Neutrophils % 62.2 Lymphocytes % 19.2 Monocytes % 9.3 Eosinophils % 3.9 Basophils % 0.8 Nucleated Red Blood Cells % 0.0 Immature Granulocytes # 0.570 H Neutrophils # 7.6 H Lymphocytes # 2.4 Monocytes # 1.2 H Eosinophils # 0.5 Basophils # 0.1 Nucleated Red Blood Cells # 0.0 Home Meds Active Scripts Acetaminophen-Codeine* (Acetaminophen-Cod #3*) 300-30 Mg Tab, 1 TAB PO Q4H PRN for PAIN, #10 TAB Prov:MICHOACANO DENTON MD 12/14/14 Acetaminophen* (Acetaminophen*) 500 MG Extra Strength Tablet, 500-1000 MG PO Q6H PRN for PAIN AND OR ELEVATED TEMP, #20 TAB Prov:JOHN GASTELUM PA-C 12/09/14 Nitrofurantoin Monohyd Macrocr* (Macrobid*) 100 Mg Capsr, 100 MG PO BID for 7 Days, CAP Prov:JOHN GASTELUM PA-C 12/09/14 Reported Medications Vit/Fe Fumarate/Fa* ( Vitamin Tablet*) 1 Tab Tablet, 1 TAB PO DAILY 08/05/13 Medications Current Medications IV Flush (NS 3 ml) 3 ml PER PROTOCOL IV ; Start 09/30/18 at 10:00 Simethicone (Mylicon) 160 mg Q8H PRN PO .GAS Last administered on 10/03/18at 17:29; Admin Dose 160 MG; Start 09/30/18 at 10:00 Lanolin (Lanolin Hpa) 1 applic BEDSIDE MEDICATION PRN TOP .NIPPLES; Start 09/30/18 at 10:00 Methylergonovine Maleate (Methergine) 0.2 mg ONCE PRN IM .VAGINAL BLEEDING; Start 09/30/18 at 10:00 Carboprost Tromethamine (Hemabate) 250 mcg ONCE PRN IM .VAGINAL BLEEDING; Start 09/30/18 at 10:00 Misoprostol (Cytotec) 1,000 mcg ONCE PRN [place] .VAGINAL BLEEDING; Start 09/30/18 at 10:00 Naloxone HCl (Narcan) 0.2 mg PRN PRN IV RR < 8; Start 09/30/18 at 14:30 Acetaminophen (Tylenol Tab) 500 mg Q4H PRN PO PAIN LEVEL 1-5; Start 09/30/18 at 14:30 Acetaminophen/ Hydrocodone Bitart ([place] (5/325)) 1 tab Q4H PRN PO PAIN LEVEL 1-5 Last administered on 10/04/18at 09:44; Admin Dose 1 TAB; Start 09/30/18 at 14:30 Hydromorphone HCl (Dilaudid) 0.2 mg Q4H PRN IV PAIN LEVEL 1-5; Start 09/30/18 at 14:30 Ondansetron HCl (Zofran Inj) 4 mg Q6H PRN IV NAUSEA AND/OR VOMITING; Start 09/30/18 at 14:30 Zolpidem Tartrate (Ambien) 5 mg HS MAY REPEAT X 1 PRN PO .INSOMNIA; Start 09/30/18 at 14:30 Diphenhydramine HCl (Benadryl) 25 mg Q6H PRN IV .ITCHING; Start 09/30/18 at 14:30 Acetaminophen (Tylenol Tab) 650 mg Q4H PRN PO MILD PAIN(1-3)OR ELEVATED TEMP; Start 10/02/18 at 11:30 Oxycodone/ Acetaminophen (Percocet (5/ 325)) 2 tab Q4H PRN PO SEVERE PAIN LEVEL 7-10 Last administered on 10/10/18 17:01; Admin Dose 2 TAB; Start 10/02/18 at 11:30 Simethicone (Mylicon) 80 mg TID PRN PO DISTENSION/GAS/BLOATING; Start 10/02/18 at 11:30 Hydrocortisone (Proctozone-Hc) 1 applic PRN PRN [place] HEMORRHOID/EPISIOTMY PAIN Last administered on 10/03/18 17:18; Admin Dose 1 APPLIC; Start 10/03/18 at 13:00 Hydralazine HCl (Apresoline) 10 mg Q6H PRN IV ELEVATED BLOOD PRESSURE Last administered on 10/05/18 15:56; Admin Dose 10 MG; Start 10/04/18 at 12:00 Sodium Chloride 1,000 ml @ 75 mls/hr [id number] IV Last administered on 10/10/18 17:21; Admin Dose 75 MLS/HR; Start 10/05/18 at 13:00 Docusate Sodium (Colace) 100 mg BID PO Last administered on 10/10/18 08:21; Admin Dose 100 MG; Start 10/05/18 at 14:30 Metoprolol Succinate (Toprol Xl) 50 mg DAILY PO Last administered on 10/10/18 08:22; Admin Dose 50 MG; Start 10/07/18 at 12:00 Silver Sulfadiazine (Thermazene 1% 25 Gm) 1 applic DAILY TOP Last administered on 10/10/18 08:23; Admin Dose 1 APPLIC; Start 10/07/18 at 18:00 Senna (Senokot) 2 tab BID PO Last administered on 10/10/18 08:22; Admin Dose 2 TAB; Start 10/08/18 at 13:[address] cystogram: 1. Contrast was drip infused into the bladder through a Norton catheter which is seen at the moderately distended. There is no extravasation of contrast to suggest a leak. There is a convex medial impression on the left superior lateral bladder lumen measuring 4.0 x 3.6 x 1.6 cm, suspicious for hematoma either in the wall of the bladder or extrinsically impressing the bladder. The kidneys and ureters remain unremarkable. 2. There is again an enlarged uterus and there has been little interval change to the left lateral extraperitoneal pelvic hematoma that extends superiorly into the retroperitoneal abdomen which is measured at 16.5 x 12.4 x 7.7 cm. 3. There is no longer intraperitoneal fluid evident. There are much fewer bubbles of intraperitoneal air seen within the left anterior pelvis inferior to the uterus, and within the anterior pelvic abdominal wall musculature. 4. Persistent hepatomegaly with no focal lesion. 5. Density is now seen to layer within the gallbladder which could represent sludge or small stones. The gallbladder wall is not thickened, no bile duct dilatation is evident, and the pancreas appears unremarkable. 6. There is again substantial stool seen within the colon and there is food debris in the stomach without evidence of bowel obstruction or inflammation. Assessment/Plan Hospital Course (Demo Recall) 33-year-old female status post and cystorrhaphy and evacuation of uterine hematoma. CT cystogram was done today and that showed: 1. Contrast was drip infused into the bladder through a Norton catheter which is seen at the moderately distended. There is no extravasation of contrast to suggest a leak. There is a convex medial impression on the left superior lateral bladder lumen measuring 4.0 x 3.6 x 1.6 cm, suspicious for hematoma either in the wall of the bladder or extrinsically impressing the bladder. The kidneys and ureters remain unremarkable. 2. There is again an enlarged uterus and there has been little interval change to the left lateral extraperitoneal pelvic hematoma that extends superiorly into the retroperitoneal abdomen which is measured at 16.5 x 12.4 x 7.7 cm. 3. There is no longer intraperitoneal fluid evident. There are much fewer bubb les of intraperitoneal air seen within the left anterior pelvis inferior to the uterus, and within the anterior pelvic abdominal wall musculature. 4. Persistent hepatomegaly with no focal lesion. 5. Density is now seen to layer within the gallbladder which could represent sludge or small stones. The gallbladder wall is not thickened, no bile duct dilatation is evident, and the pancreas appears unremarkable. 6. There is again substantial stool seen within the colon and there is food debris in the stomach without evidence of bowel obstruction or inflammation. Since there is no more leak from the bladder we could take out the Norton catheter. However she still have a large hematoma. That may require CT-guided drainage by IR. FAYE CALOHUN MD Oct 10, 2018 19:23
[2018-10-11] VITALS (12 sets, daily range): BP systolic 112–135; BP diastolic 70–87; PULSE 92–108; RESP 16–20
[2018-10-11] MEDS: OXYCODONE/ACETAMINOPHEN (5/325) TAB PO PRN ×3 (02:22→21:58)
[2018-10-11] MEDS: HYDROCODONE/APAP (5/325) TAB PO PRN (08:02)
[2018-10-11] MEDS: SOD CHLORIDE 0.45% 1,000 ML IV SCH ×2 (08:03→21:32)
[2018-10-11] MEDS: SENNA TAB PO SCH ×2 (08:06→21:58)
[2018-10-11] MEDS: SILVER SULFADIAZINE 1% 25 GM CR TOP SCH (08:07)
[2018-10-11] MEDS: METOPROLOL (XL) 50 MG TAB PO SCH (08:07)
[2018-10-11] MEDS: DOCUSATE SODIUM 100 MG CAP PO SCH ×2 (08:07→21:58)
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
--- NOTE | 2018-10-11 15:03 | PN ---
Date/Time of Note Date/Time of Note DATE: 10/11/18 TIME: 14:58 Assessment/Plan Lines/Catheters IV Catheter Type (from Nrs): Mid Line Norton in Place (from Nrs): Yes Assessment/Plan Chief Complaint/Hosp Course 1. Recent , cystorrhaphy and evacuation of uterine hematoma, Left extraperitoneal hematoma within the left pelvis extending superiorly into retro peritoneal abdomen, 11.6 x 5 0.1 cm x 14.5 cm; ovoid fluid collection containing air bubbles with wall enhancement between left uterine body and bladder concerning for an abscess; status post CT with contrast infused and bladder> no leak; no significant change in hematoma size; H&H stable -monitoring -if continues to have concern for retroperitoneal bleed or infected hematoma may consider surgical intervention/IR at that point -Consider antibiotics for possible abscess> defer to gynecology and urology -Correct coagulopathy -Hold off anticoagulants 2. Vaginal bleed: Persistent -As above -Deferred to gynecology 3.Leukocytosis: Slight uptick - As above 4. Normocytic normochromic anemia: - Monitor and transfuse as needed 5. Thrombocytosis: -Per hematology 6. Elevated d-dimer CTA no evidence of pulmonary emboli 7. Bilateral upper extremity DVTs: -Hold off anticoagulants at this point / #1 8. Constipation: -Bowel regimen Thank you. Patient seen and examined in collaboration with Dr. Gama Mobley. Subjective 24 Hr Interval Summary little interval change to left lateral extraperitoneal pelvic hematoma. H&H has remained stable. However continues to have reports of vaginal bleeding. Improved abdominal discomfort. No fevers, chills, sob, congested cough, cp, palpitations, verde, dizziness, nausea, vomiting, diarrhea, dysuria. Exam/Review of Systems Vital Signs Vitals Vital Signs Date Temp Pulse Resp B/P (MAP) Pulse Ox O2 O2 Flow FiO2 Time Delivery Rate 10/11/18 92 12:00 10/11/18 98.2 20 135/87 96 Room Air 11:01 (103) Intake and Output 10/10/18 10/10/18 10/11/18 1414:59 22:59 06:59 IntakeIntake Total 960 ml 650 ml 1500 ml OutputOutput Total 1100 ml 1600 ml 1600 ml BalanceBalance -140 ml -950 ml -100 ml Exam Free Text/Dictation Constitutional: alert, oriented Psych: nl mood/affect; No anxiety Head: normocephalic, atraumatic Eyes: nl conjunctiva, EOMI, nl lids, nl sclera ENMT: nl external ears & nose, nl lips & teeth, mucosa pink and moist Neck: supple, non-tender; No jvd Respiratory: clear to auscultation, normal air movement; No labored breathing Cardiovascular: regular rate and rhythm, nl pulses Gastrointestinal: soft, distended (minimal), tender (Left lower quadrant- improved), other (No skin changes, bruising, discoloration) Genitourinary - Female: other (Norton, clear urine; vaginal bleeding) Musculoskeletal: nl extremities to inspection Extremities: normal pulses Neurological: nl mental status, nl speech, nl strength Skin: No rash or lesions Results Result Diagram: 10/11/18 0840 10/11/18 0840 CONSUELO LUBIN NP Oct 11, 2018 15:03
--- NOTE | 2018-10-11 20:26 | QN ---
Documentation Comment had b.m feels better , pain /10 today compare to 11/15 on yesterday vss afebrile abdomen soft H&H stable [place]BC [place] [id number] A stable P repeat CBC in am BENNIE ORNELAS MD Oct 11, 2018 20:26
[2018-10-12] VITALS (11 sets, daily range): BP systolic 112–131; BP diastolic 68–82; PULSE 84–103; RESP 18–19
[2018-10-12] MEDS: DOCUSATE SODIUM 100 MG CAP PO SCH ×2 (08:16→21:13)
[2018-10-12] MEDS: OXYCODONE/ACETAMINOPHEN (5/325) TAB PO PRN ×2 (08:16→17:18)
[2018-10-12] MEDS: METOPROLOL (XL) 50 MG TAB PO SCH (08:16)
[2018-10-12] MEDS: SENNA TAB PO SCH ×2 (08:16→21:13)
[2018-10-12] MEDS: SILVER SULFADIAZINE 1% 25 GM CR TOP SCH (08:17)
[2018-10-12] MEDS: SOD CHLORIDE 0.45% 1,000 ML IV SCH (10:52)
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
--- NOTE | 2018-10-12 16:24 | CONS ---
Assessment/Plan Assessment/Plan Assessment/Plan (Daily) #LUE DVT - hold anticoagulation in the setting of the RP hematoma -there is very low risk for this to embolize in the lung #Retroperitoneal hematoma - As seen on abdominal CT 10/09/18, 14.5 x 11.6 x 5.1 cm - Hold anticoagulation. - Gynecology to decide surgical vs expectant management. CT-guided needle drainage may be an option as well. #Thrombocytosis - possibly secondary to underlying inflammation and/ or iron deficiency - IV iron -if the platelets do not normalize once her clinical status stabilize we can perform a hypercoagulable workup at that time Patient seen in collaboration with Dr Spencer. Consultation Date/Type/Reason Admit Date/Time Sep 30, 2018 at 06:10 Initial Consult Date 10/10/18 Type of Consult Oncology Reason for Consultation LUE thrombosis Requesting Provider: SADI CHAPARRO MD Date/Time of Note DATE: 10/12/18 TIME: 16:20 24 HR Interval Summary Free Text/Dictation resting c/o abdominal pain at times- ok now denies any chest pain no new events reported last night per staff Detailed Summary Eyes: no complaints ENT: no complaints Respiratory: no complaints Cardiovascular: no complaints Gastrointestinal: no complaints Genitourinary: no complaints Musculoskeletal: no complaints Skin: no complaints Neurologic: no complaints, dizziness Lymphatic: no complaints Psychological: nl mood/affect Immunologic: no complaints Exam/Review of Systems Exam Vitals Vital Signs Date Temp Pulse Resp B/P (MAP) Pulse Ox O2 O2 Flow FiO2 Time Delivery Rate 10/12/18 97.7 92 19 112/71 95 15:29 (85) 10/12/18 Room Air 03:51 Intake and Output 10/11/18 10/11/18 10/12/18 1515:00 23:00 07:00 IntakeIntake Total 3300 ml 1000 ml OutputOutput Total 3000 ml 1600 ml BalanceBalance 300 ml -600 ml Constitutional: alert, well developed Psych: nl mood/affect Head: atraumatic Eyes: nl lids, nl sclera ENMT: nl external ears & nose Neck: non-tender Respiratory: clear to auscultation Cardiovascular: nl pulses, other (s1s2) Gastrointestinal: soft, non-tender Musculoskeletal: nl extremities to inspection Extremities: normal pulses Neurological: nl mental status, nl speech, other (alert/resposive) Lymph: nontender Results Result Diagram: 10/12/18 0527 10/12/18 0527 Results 24hrs Laboratory Tests Test 10/12/18 05:27 White Blood Count 13.7 H Red Blood Count 3.66 L Hemoglobin 10.8 L Hematocrit 34.6 L Mean Corpuscular Volume 94.5 Mean Corpuscular Hemoglobin 29.5 Mean Corpuscular Hemoglobin Concent 31.2 L Red Cell Distribution Width 13.9 Platelet Count 819 H Mean Platelet Volume 8.9 Immature Granulocytes % 4.300 H Neutrophils % 65.7 Lymphocytes % 18.2 Monocytes % 7.5 Eosinophils % 3.4 Basophils % 0.9 Nucleated Red Blood Cells % 0.0 Immature Granulocytes # 0.590 H Neutrophils # 9.0 H Lymphocytes # 2.5 Monocytes # 1.0 H Eosinophils # 0.5 Basophils # 0.1 Nucleated Red Blood Cells # 0.0 Sodium Level 139 Potassium Level 4.1 Chloride Level 108 Carbon Dioxide Level 25 Anion Gap 6 Blood Urea Nitrogen 14 Creatinine 0.54 Est Glomerular Filtrat Rate mL/min > 60 Glucose Level 89 # Calcium Level 9.2 Phosphorus Level 4.5 Magnesium Level 2.1 Medications Medication Current Medications IV Flush (NS 3 ml) 3 ml PER PROTOCOL IV ; Start 09/30/18 at 10:00 Simethicone (Mylicon) 160 mg Q8H PRN PO .GAS Last administered on 10/03/18at 17:29; Admin Dose 160 MG; Start 09/30/18 at 10:00 Lanolin (Lanolin Hpa) 1 applic BEDSIDE MEDICATION PRN TOP .NIPPLES; Start 09/30/18 at 10:00 Methylergonovine Maleate (Methergine) 0.2 mg ONCE PRN IM .VAGINAL BLEEDING; Start 09/30/18 at 10:00 Carboprost Tromethamine (Hemabate) 250 mcg ONCE PRN IM .VAGINAL BLEEDING; Start 09/30/18 at 10:00 Misoprostol (Cytotec) 1,000 mcg ONCE PRN [place] .VAGINAL BLEEDING; Start 09/30/18 at 10:00 Naloxone HCl (Narcan) 0.2 mg PRN PRN IV RR < 8; Start 09/30/18 at 14:30 Acetaminophen (Tylenol Tab) 500 mg Q4H PRN PO PAIN LEVEL 1-5; Start 09/30/18 at 14:30 Acetaminophen/ Hydrocodone Bitart ([place] (5/325)) 1 tab Q4H PRN PO PAIN LEVEL 1-5 Last administered on 10/11/18 08:02; Admin Dose 1 TAB; Start 09/30/18 at 14:30 Hydromorphone HCl (Dilaudid) 0.2 mg Q4H PRN IV PAIN LEVEL 1-5; Start 09/30/18 at 14:30 Ondansetron HCl (Zofran Inj) 4 mg Q6H PRN IV NAUSEA AND/OR VOMITING; Start 09/30/18 at 14:30 Zolpidem Tartrate (Ambien) 5 mg HS MAY REPEAT X 1 PRN PO .INSOMNIA; Start 09/30/18 at 14:30 Diphenhydramine HCl (Benadryl) 25 mg Q6H PRN IV .ITCHING; Start 09/30/18 at 14:30 Acetaminophen (Tylenol Tab) 650 mg Q4H PRN PO MILD PAIN(1-3)OR ELEVATED TEMP; Start 10/02/18 at 11:30 Oxycodone/ Acetaminophen (Percocet (5/ 325)) 2 tab Q4H PRN PO SEVERE PAIN LEVEL 7-10 Last administered on 10/12/18 08:16; Admin Dose 2 TAB; Start 10/02/18 at 11:30 Simethicone (Mylicon) 80 mg TID PRN PO DISTENSION/GAS/BLOATING; Start 10/02/18 at 11:30 Hydrocortisone (Proctozone-Hc) 1 applic PRN PRN [place] HEMORRHOID/EPISIOTMY PAIN Last administered on 10/03/18 17:18; Admin Dose 1 APPLIC; Start 10/03/18 at 13:00 Hydralazine HCl (Apresoline) 10 mg Q6H PRN IV ELEVATED BLOOD PRESSURE Last administered on 10/05/18 15:56; Admin Dose 10 MG; Start 10/04/18 at 12:00 Sodium Chloride 1,000 ml @ 75 mls/hr [id number] IV Last administered on 10/11/18 08:03; Admin Dose 75 MLS/HR; Start 10/05/18 at 13:00 Docusate Sodium (Colace) 100 mg BID PO Last administered on 10/12/18 08:16; Admin Dose 100 MG; Start 10/05/18 at 14:30 Metoprolol Succinate (Toprol Xl) 50 mg DAILY PO Last administered on 10/12/18at 08:16; Admin Dose 50 MG; Start 10/07/18 at 12:00 Silver Sulfadiazine (Thermazene 1% 25 Gm) 1 applic DAILY TOP Last administered on 10/12/18at 08:17; Admin Dose 1 APPLIC; Start 10/07/18 at 18:00 Senna (Senokot) 2 tab BID PO Last administered on 10/12/18at 08:16; Admin Dose 2 TAB; Start 10/08/18 at 13:00 MELISSA WILEY Oct 12, 2018 16:24
--- NOTE | 2018-10-12 23:47 | PN ---
Date/Time of Note Date/Time of Note DATE: 10/12/18 TIME: 23:43 Assessment/Plan Lines/Catheters IV Catheter Type (from Nrs): Mid Line Norton in Place (from Nrsg): Yes Assessment/Plan Chief Complaint/Hosp Course 1. Recent , cystorrhaphy and evacuation of uterine hematoma, Left extraperitoneal hematoma within the left pelvis extending superiorly into retro peritoneal abdomen, 11.6 x 5 0.1 cm x 14.5 cm; ovoid fluid collection containing air bubbles with wall enhancement between left uterine body and bladder concerning for an abscess; status post CT with contrast infused and bladder> no leak; no significant change in hematoma size; H&H stable -continue monitoring -if continues to have concern for ongoing retroperitoneal bleed or infected hematoma may consider surgical intervention/IR at that point -Consider antibiotics for possible abscess> defer to gynecology and urology -Correct coagulopathy -Hold off anticoagulants 2. Vaginal bleed: Persistent -As above -Deferred to gynecology 3.Persistent Leukocytosis: -per medical team - As above 4. Normocytic normochromic anemia: - Monitor and transfuse as needed 5. Thrombocytosis: -Per hematology 6. Elevated d-dimer CTA no evidence of pulmonary emboli 7. Bilateral upper extremity DVTs: -Hold off anticoagulants at this point 08/10 #1 8. Constipation: -Bowel regimen Thank you. Patient seen and examined in collaboration with Dr. Gama Mobley. Subjective 24 Hr Interval Summary Abdominal pain persistent, however, less. HH stable. No fevers, chills, sob, co ngested cough, cp, palpitations, verde, dizziness, n/v/d/dysuria. Exam/Review of Systems Vital Signs Vitals Vital Signs Date Temp Pulse Resp B/P (MAP) Pulse Ox O2 O2 Flow FiO2 Time Delivery Rate 10/12/18 96 20:00 10/12/18 97.6 19 117/75 95 19:14 (89) 10/12/18 Room Air 03:51 Intake and Output 10/11/18 10/11/18 10/12/18 1515:00 23:00 07:00 IntakeIntake Total 3300 ml 1000 ml OutputOutput Total 3000 ml 1600 ml BalanceBalance 300 ml -600 ml Exam Free Text/Dictation Constitutional: alert, oriented Psych: nl mood/affect; No anxiety Head: normocephalic, atraumatic Eyes: nl conjunctiva, EOMI, nl lids, nl sclera ENMT: nl external ears & nose, nl lips & teeth, mucosa pink and moist Neck: supple, non-tender; No jvd Respiratory: clear to auscultation, normal air movement; No labored breathing Cardiovascular: regular rate and rhythm, nl pulses Gastrointestinal: soft, distended (minimal), tender (Left lower quadrant- improved), other (No skin changes, bruising, discoloration) Genitourinary - Female: other ([place], clear urine; vaginal bleeding) Musculoskeletal: nl extremities to inspection Extremities: normal pulses Neurological: nl mental status, nl speech, nl strength Skin: No rash or lesions Results Result Diagram: 10/12/18 0527 10/12/18 0527 CONSUELO LUBIN NP Oct 12, 2018 23:47
[2018-10-13] VITALS (12 sets, daily range): BP systolic 115–128; BP diastolic 62–83; PULSE 82–98; RESP 17–19
[2018-10-13] MEDS: SOD CHLORIDE 0.45% 1,000 ML IV SCH (00:41)
--- NOTE | 2018-10-13 05:21 | CONS ---
Assessment/Plan Assessment/Plan Assessment/Plan (Daily) #LUE DVT - hold anticoagulation in the setting of the RP hematoma -there is very low risk for this to embolize in the lung #Retroperitoneal hematoma - As seen on abdominal CT 10/09/18, 14.5 x 11.6 x 5.1 cm - Hold anticoagulation. - Gynecology to decide surgical vs expectant management. CT-guided needle drainage may be an option as well. #Thrombocytosis - possibly secondary to underlying inflammation and/ or iron deficiency - IV iron -if the platelets do not normalize once her clinical status stabilize we can perform a hypercoagulable workup at that time Patient seen in collaboration with Dr Spencer Consultation Date/Type/Reason Admit Date/Time Sep 30, 2018 at 06:10 Initial Consult Date 10/10/18 Type of Consult oncology Reason for Consultation LUE thrombosis Requesting Provider: SADI CHAPARRO MD Date/Time of Note DATE: 10/13/18 TIME: 05:21 24 HR Interval Summary Free Text/Dictation resting; denies any complaints no new events reported last night Detailed Summary Eyes: no complaints ENT: no complaints Respiratory: no complaints Cardiovascular: no complaints Gastrointestinal: no complaints Genitourinary: no complaints Neurologic: no complaints Endocrine: no complaints Lymphatic: no complaints Psychological: nl mood/affect Exam/Review of Systems Exam Vitals Vital Signs Date Temp Pulse Resp B/P (MAP) Pulse Ox O2 O2 Flow FiO2 Time Delivery Rate 10/13/18 94 04:00 10/13/18 98.0 19 125/62 96 03:41 (83) 10/12/18 Room Air 03:51 Intake and Output 10/12/18 10/12/18 10/13/18 1515:00 23:00 07:00 IntakeIntake Total 1600 ml OutputOutput Total 1300 ml BalanceBalance 300 ml Constitutional: alert, well developed Psych: nl mood/affect Eyes: nl lids ENMT: nl external ears & nose Neck: non-tender Respiratory: clear to auscultation Cardiovascular: nl pulses, other (s1s2) Gastrointestinal: soft, non-tender Musculoskeletal: nl extremities to inspection Extremities: normal pulses Neurological: nl speech, other (alert/reponsive) Lymph: nontender Results Result Diagram: 10/12/1852610/12/18526 Results 24hrs Laboratory Tests Test 10/12/18 05:27 White Blood Count 13.7 H Red Blood Count 3.66 L Hemoglobin 10.8 L Hematocrit 34.6 L Mean Corpuscular Volume 94.5 Mean Corpuscular Hemoglobin 29.5 Mean Corpuscular Hemoglobin Concent 31.2 L Red Cell Distribution Width 13.9 Platelet Count 819 H Mean Platelet Volume 8.9 Immature Granulocytes % 4.300 H Neutrophils % 65.7 Lymphocytes % 18.2 Monocytes % 7.5 Eosinophils % 3.4 Basophils % 0.9 Nucleated Red Blood Cells % 0.0 Immature Granulocytes # 0.590 H Neutrophils # 9.0 H Lymphocytes # 2.5 Monocytes # 1.0 H Eosinophils # 0.5 Basophils # 0.1 Nucleated Red Blood Cells # 0.0 Sodium Level 139 Potassium Level 4.1 Chloride Level 108 Carbon Dioxide Level 25 Anion Gap 6 Blood Urea Nitrogen 14 Creatinine 0.54 Est Glomerular Filtrat Rate mL/min > 60 Glucose Level 89 # Calcium Level 9.2 Phosphorus Level 4.5 Magnesium Level 2.1 Medications Medication Current Medications IV Flush (NS 3 ml) 3 ml PER PROTOCOL IV ; Start 09/30/18 at 10:00 Simethicone (Mylicon) 160 mg Q8H PRN PO .GAS Last administered on 10/03/18at 17:29; Admin Dose 160 MG; Start 09/30/18 at 10:00 Lanolin (Lanolin Hpa) 1 applic BEDSIDE MEDICATION PRN TOP .NIPPLES; Start 09/30/18 at 10:00 Methylergonovine Maleate (Methergine) 0.2 mg ONCE PRN IM .VAGINAL BLEEDING; Start 09/30/18 at 10:00 Carboprost Tromethamine (Hemabate) 250 mcg ONCE PRN IM .VAGINAL BLEEDING; Start 09/30/18 at 10:00 Misoprostol (Cytotec) 1,000 mcg ONCE PRN [place] .VAGINAL BLEEDING; Start 09/30/18 at 10:00 Naloxone HCl (Narcan) 0.2 mg PRN PRN IV RR < 8; Start 09/30/18 at 14:30 Acetaminophen (Tylenol Tab) 500 mg Q4H PRN PO PAIN LEVEL 1-5; Start 09/30/18 at 14:30 Acetaminophen/ Hydrocodone Bitart ([place] (5/325)) 1 tab Q4H PRN PO PAIN LEVEL 1-5 Last administered on 10/11/18at 08:02; Admin Dose 1 TAB; Start 09/30/18 at 14:30 Hydromorphone HCl (Dilaudid) 0.2 mg Q4H PRN IV PAIN LEVEL 1-5; Start 09/30/18 at 14:30 Ondansetron HCl (Zofran Inj) 4 mg Q6H PRN IV NAUSEA AND/OR VOMITING; Start 09/30/18 at 14:30 Zolpidem Tartrate (Ambien) 5 mg HS MAY REPEAT X 1 PRN PO .INSOMNIA; Start 09/30/18 at 14:30 Diphenhydramine HCl (Benadryl) 25 mg Q6H PRN IV .ITCHING; Start 09/30/18 at 14:30 Acetaminophen (Tylenol Tab) 650 mg Q4H PRN PO MILD PAIN(1-3)OR ELEVATED TEMP; Start 10/02/18 at 11:30 Oxycodone/ Acetaminophen (Percocet (5/ 325)) 2 tab Q4H PRN PO SEVERE PAIN LEVEL 7-10 Last administered on 10/12/18 17:18; Admin Dose 2 TAB; Start 10/02/18 at 11:30 Simethicone (Mylicon) 80 mg TID PRN PO DISTENSION/GAS/BLOATING; Start 10/02/18 at 11:30 Hydrocortisone (Proctozone-Hc) 1 applic PRN PRN [place] HEMORRHOID/EPISIOTMY PAIN Last administered on 10/03/18 17:18; Admin Dose 1 APPLIC; Start 10/03/18 at 13:00 Hydralazine HCl (Apresoline) 10 mg Q6H PRN IV ELEVATED BLOOD PRESSURE Last administered on 10/05/18at 15:56; Admin Dose 10 MG; Start 10/04/18 at 12:00 Sodium Chloride 1,000 ml @ 75 mls/hr [id number] IV Last administered on 10/13/18 00:41; Admin Dose 75 MLS/HR; Start 10/05/18 at 13:00 Docusate Sodium (Colace) 100 mg BID PO Last administered on 10/12/18 21:13; Admin Dose 100 MG; Start 10/05/18 at 14:30 Metoprolol Succinate (Toprol Xl) 50 mg DAILY PO Last administered on 10/12/18 08:16; Admin Dose 50 MG; Start 10/07/18 at 12:00 Silver Sulfadiazine (Thermazene 1% 25 Gm) 1 applic DAILY TOP Last administered on 10/12/18 08:17; Admin Dose 1 APPLIC; Start 10/07/18 at 18:00 Senna (Senokot) 2 tab BID PO Last administered on 10/12/18at 21:13; Admin Dose 2 TAB; Start 10/08/18 at 13:00 MELISSA WILEY Oct 13, 2018 05:21
[2018-10-13] MEDS: OXYCODONE/ACETAMINOPHEN (5/325) TAB PO PRN (06:46)
[2018-10-13] MEDS: SENNA TAB PO SCH ×2 (08:19→20:27)
[2018-10-13] MEDS: DOCUSATE SODIUM 100 MG CAP PO SCH ×2 (08:19→20:27)
[2018-10-13] MEDS: METOPROLOL (XL) 50 MG TAB PO SCH (08:19)
[2018-10-13] MEDS: ACETAMINOPHEN 325 MG TAB PO PRN ×2 (13:50→22:22)
[2018-10-13] MEDS: SILVER SULFADIAZINE 1% 25 GM CR TOP SCH (13:52)
--- NOTE | 2018-10-13 14:23 | PN ---
Date/Time of Note Date/Time of Note DATE: 10/13/18 TIME: 14:19 Assessment/Plan Lines/Catheters IV Catheter Type (from Nrs): Mid Line Norton in Place (from Nrsg): Yes Assessment/Plan Chief Complaint/Hosp Course 1. Recent , cystorrhaphy and evacuation of uterine hematoma, Left extraperitoneal hematoma within the left pelvis extending superiorly into retro peritoneal abdomen, 11.6 x 5 0.1 cm x 14.5 cm; ovoid fluid collection containing air bubbles with wall enhancement between left uterine body and bladder concerning for an abscess; status post CT with contrast infused and bladder> no leak; no significant change in hematoma size; H&H stable -continue monitoring -if continues to have concern for ongoing retroperitoneal bleed or infected hematoma may consider surgical intervention/IR at that point -Consider antibiotics for possible abscess> defer to gynecology and urology -Correct coagulopathy -Hold off anticoagulants 2. Vaginal bleed: No vaginal bleeding noted at this time -As above -Deferred to gynecology 3.Persistent Leukocytosis: Afebrile -per medical team> further workup if persistent - As above 4. Normocytic normochromic anemia: H&H stable - Monitor and transfuse as needed 5. Thrombocytosis: -Per hematology 6. Elevated d-dimer CTA no evidence of pulmonary emboli 7. Bilateral upper extremity DVTs: -Hold off anticoagulants at this point 08/10 #1 8. Constipation: -Bowel regimen Thank you. Patient seen and examined in collaboration with Dr. Gama Mobley. Subjective 24 Hr Interval Summary Feels well. No fevers, chills, sob, congested cough, cp, palpitations, verde, dizziness, nausea, vomiting, diarrhea, dysuria. WBC uptrending. Abdominal pain improving. No vaginal bleeding. Exam/Review of Systems Vital Signs Vitals Vital Signs Date Temp Pulse Resp B/P (MAP) Pulse Ox O2 O2 Flow FiO2 Time Delivery Rate 10/13/18 91 12:01 10/13/18 98.3 17 126/83 96 11:28 (97) 10/12/18 Room Air 03:51 Intake and Output 10/12/18 10/12/18 10/13/18 1515:00 23:00 07:00 IntakeIntake Total 1600 ml 450 ml OutputOutput Total 1300 ml 1500 ml BalanceBalance 300 ml -1050 ml Exam Free Text/Dictation Constitutional: alert, oriented Psych: nl mood/affect; No anxiety Head: normocephalic, atraumatic Eyes: nl conjunctiva, EOMI, nl lids, nl sclera ENMT: nl external ears & nose, nl lips & teeth, mucosa pink and moist Neck: supple, non-tender; No jvd Respiratory: clear to auscultation, normal air movement; No labored breathing Cardiovascular: regular rate and rhythm, nl pulses Gastrointestinal: soft, distended (minimal), min tender (Left lower quadrant), other (No skin changes, bruising, discoloration) Genitourinary - Female: other ([place], clear urine) Musculoskeletal: nl extremities to inspection Extremities: normal pulses Neurological: nl mental status, nl speech, nl strength Skin: No rash or lesions Results Result Diagram: 10/13/18 0528 10/13/18 0528 CONSUELO LUBIN NP Oct 13, 2018 14:23
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
--- NOTE | 2018-10-13 18:53 | QN ---
Documentation Comment seeing the patient on behalf of today, s/ c/s with some complications No new complaints VS stable Gen NAD Abd soft NT ND Incision intact Genitalia no blood perineum --->management as per urology and medicine team --->Christen Bonilla will see the patient tomorrow and he will decide about the discharge plan NOE SHAFFER M.D. Oct 13, 2018 18:53
[2018-10-14] VITALS (11 sets, daily range): BP systolic 101–132; BP diastolic 61–77; PULSE 80–102; RESP 17–18
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
[2018-10-14] MEDS: DOCUSATE SODIUM 100 MG CAP PO SCH ×2 (08:12→20:42)
[2018-10-14] MEDS: SENNA TAB PO SCH ×2 (08:12→20:42)
[2018-10-14] MEDS: METOPROLOL (XL) 50 MG TAB PO SCH (08:13)
[2018-10-14] MEDS: ACETAMINOPHEN 325 MG TAB PO PRN ×2 (08:14→19:33)
[2018-10-14] MEDS: SILVER SULFADIAZINE 1% 25 GM CR TOP SCH (08:14)
--- NOTE | 2018-10-14 09:12 | QN ---
Documentation Comment progress note pod 14 patient seen and evaluated no complaints vs stable afebrile lungs cta b/l ab c/d/i no distention extremity positive dressing in left hand/ clean wbc 14.1 33-year woman status post and tubal ligation postop on 09/30 with subsequent postop hematuria, status post surgical bladder repair and evacuation of hematoma. Retroperitoneal hematoma: h/h is stable - As seen on abdominal CT 10/09/18, 14.5 x 11.6 x 5.1 cm - Hold anticoagulation. Leukocytosis - Currently the patient is not on antibiotics: will obtain Infectious disease consult to see is antibiotics is necessary . Superficial venous thrombosis in the left upper extremity: no sob/ or sign of embolism. anticoagulant has been discontinue for now because of current pelvic hematoma patient is currently stable p/ infectious disease consult prepare for discharge home. SADI CHAPARRO MD Oct 14, 2018 09:12
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
--- NOTE | 2018-10-14 10:34 | CONS ---
Assessment/Plan Assessment/Plan Hospital Course (Demo Recall) #LUE DVT -agree with holding anticoagulation in the setting of the RP hematoma -there is very low risk for this to embolize in the lung -continue pain medication for LUE pain #Retroperitoneal hematoma - As seen on abdominal CT 10/09/18, 14.5 x 11.6 x 5.1 cm - Hold anticoagulation. - Gynecology to decide surgical vs expectant management. CT-guided needle drainage may be an option as well. #Thrombocytosis -I believe this is secondary to undelyign inflammation and/ or iron deficiency -will start IV iron -if the platelets do not normalize once her clinical status stabilize we can perform a hypercoagulable workup at that time Consultation Date/Type/Reason Admit Date/Time Sep 30, 2018 at 06:10 Initial Consult Date 10/10/18 Type of Consult Hematology Reason for Consultation coagulopathy Requesting Provider: SADI CHAPARRO MD Date/Time of Note DATE: 10/14/18 TIME: 10:25 24 HR Interval Summary Free Text/Dictation pt still has vaginal bleeding. off anticoagulation. c/o left hand and arm pain. Exam/Review of Systems Exam Vitals Vital Signs Date Temp Pulse Resp B/P (MAP) Pulse Ox O2 O2 Flow FiO2 Time Delivery Rate 10/14/18 98.2 91 18 101/61 98 07:26 (74) 10/12/18 Room Air 03:51 Intake and Output 10/13/18 10/13/18 10/14/18 1515:00 23:00 07:00 IntakeIntake Total 750 ml 500 ml OutputOutput Total 850 ml 700 ml 1150 ml BalanceBalance -850 ml 50 ml -650 ml Constitutional: alert, oriented Psych: no complaints Head: normocephalic Eyes: nl conjunctiva ENMT: nl external ears & nose Neck: supple Respiratory: clear to auscultation Cardiovascular: regular rate and rhythm Gastrointestinal: soft Musculoskeletal: nl extremities to inspection Results Result Diagram: 10/14/18 0507 10/14/18 0507 Results 24hrs Laboratory Tests Test 10/14/18 05:07 White Blood Count 14.1 H Red Blood Count 3.87 L Hemoglobin 11.5 L Hematocrit 35.8 L Mean Corpuscular Volume 92.5 Mean Corpuscular Hemoglobin 29.7 Mean Corpuscular Hemoglobin Concent 32.1 Red Cell Distribution Width 14.0 Platelet Count 902 H Mean Platelet Volume 8.9 Immature Granulocytes % 3.000 H Neutrophils % 69.8 Lymphocytes % 16.1 Monocytes % 7.5 Eosinophils % 3.0 Basophils % 0.6 Nucleated Red Blood Cells % 0.0 Immature Granulocytes # 0.430 H Neutrophils # 9.9 H Lymphocytes # 2.3 Monocytes # 1.1 H Eosinophils # 0.4 Basophils # 0.1 Nucleated Red Blood Cells # 0.0 Sodium Level 141 Potassium Level 4.1 Chloride Level 110 Carbon Dioxide Level 24 Anion Gap 7 Blood Urea Nitrogen 13 Creatinine 0.46 Est Glomerular Filtrat Rate mL/min > 60 Glucose Level 96 Calcium Level 9.1 Phosphorus Level 4.1 Magnesium Level 2.2 Medications Medication Current Medications IV Flush (NS 3 ml) 3 ml PER PROTOCOL IV ; Start 09/30/18 at 10:00 Simethicone (Mylicon) 160 mg Q8H PRN PO .GAS Last administered on 10/03/18at 17:29; Admin Dose 160 MG; Start 09/30/18 at 10:00 Lanolin (Lanolin Hpa) 1 applic BEDSIDE MEDICATION PRN TOP .NIPPLES; Start 09/30/18 at 10:00 Methylergonovine Maleate (Methergine) 0.2 mg ONCE PRN IM .VAGINAL BLEEDING; Start 09/30/18 at 10:00 Carboprost Tromethamine (Hemabate) 250 mcg ONCE PRN IM .VAGINAL BLEEDING; Start 09/30/18 at 10:00 Misoprostol (Cytotec) 1,000 mcg ONCE PRN [place] .VAGINAL BLEEDING; Start 09/30/18 at 10:00 Naloxone HCl (Narcan) 0.2 mg PRN PRN IV RR < 8; Start 09/30/18 at 14:30 Acetaminophen (Tylenol Tab) 500 mg Q4H PRN PO PAIN LEVEL 1-5; Start 09/30/18 at 14:30 Acetaminophen/ Hydrocodone Bitart ([place] (5/325)) 1 tab Q4H PRN PO PAIN LEVEL 1-5 Last administered on 10/11/18at 08:02; Admin Dose 1 TAB; Start 09/30/18 at 14:30 Hydromorphone HCl (Dilaudid) 0.2 mg Q4H PRN IV PAIN LEVEL 1-5; Start 09/30/18 at 14:30 Ondansetron HCl (Zofran Inj) 4 mg Q6H PRN IV NAUSEA AND/OR VOMITING; Start 09/30/18 at 14:30 Zolpidem Tartrate (Ambien) 5 mg HS MAY REPEAT X 1 PRN PO .INSOMNIA; Start 09/30/18 at 14:30 Diphenhydramine HCl (Benadryl) 25 mg Q6H PRN IV .ITCHING; Start 09/30/18 at 14:30 Acetaminophen (Tylenol Tab) 650 mg Q4H PRN PO MILD PAIN(1-3)OR ELEVATED TEMP Last administered on 10/14/18 08:14; Admin Dose 650 MG; Start 10/02/18 at 11:30 Oxycodone/ Acetaminophen (Percocet (5/ 325)) 2 tab Q4H PRN PO SEVERE PAIN LEVEL 7-10 Last administered on 10/13/18 06:46; Admin Dose 2 TAB; Start 10/02/18 at 11:30 Simethicone (Mylicon) 80 mg TID PRN PO DISTENSION/GAS/BLOATING; Start 10/02/18 at 11:30 Hydrocortisone (Proctozone-Hc) 1 applic PRN PRN [place] HEMORRHOID/EPISIOTMY PAIN Last administered on 10/03/18 17:18; Admin Dose 1 APPLIC; Start 10/03/18 at 13:00 Hydralazine HCl (Apresoline) 10 mg Q6H PRN IV ELEVATED BLOOD PRESSURE Last administered on 10/05/18 15:56; Admin Dose 10 MG; Start 10/04/18 at 12:00 Docusate Sodium (Colace) 100 mg BID PO Last administered on 10/14/18 08:12; Admin Dose 100 MG; Start 10/05/18 at 14:30 Metoprolol Succinate (Toprol Xl) 50 mg DAILY PO Last administered on 10/14/18 08:13; Admin Dose 50 MG; Start 10/07/18 at 12:00 Silver Sulfadiazine (Thermazene 1% 25 Gm) 1 applic DAILY TOP Last administered on 10/14/18 08:14; Admin Dose 1 APPLIC; Start 10/07/18 at 18:00 Senna (Senokot) 2 tab BID PO Last administered on 10/14/18 08:12; Admin Dose 2 TAB; Start 10/08/18 at 13:00 DHIRAJ PAULA M.D. Oct 14, 2018 10:34
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
--- NOTE | 2018-10-14 23:35 | PN ---
Date/Time of Note Date/Time of Note DATE: 10/14/18 TIME: 23:32 Assessment/Plan Lines/Catheters IV Catheter Type (from Nrs): Mid Line Norton in Place (from Nrs): No Assessment/Plan Chief Complaint/Hosp Course 1. Recent , cystorrhaphy and evacuation of uterine hematoma, Left extraperitoneal hematoma within the left pelvis extending superiorly into retrop eritoneal abdomen, 11.6 x 5 0.1 cm x 14.5 cm; ovoid fluid collection containing air bubbles with wall enhancement between left uterine body and bladder concerning for an abscess; status post CT with contrast infused and bladder> no leak; no significant change in hematoma size; H&H stable -continue monitoring -if continues to have concern for ongoing retroperitoneal bleed or infected hematoma may consider surgical intervention/IR at that point -Consider antibiotics for possible abscess> defer to gynecology and urology -Correct coagulopathy -Hold off anticoagulants 2. Vaginal bleed: No vaginal bleeding noted at this time -As above -Deferred to gynecology 3.Persistent Leukocytosis: Afebrile -per medical team> further workup if persistent - As above 4. Normocytic normochromic anemia: H&H stable - Monitor and transfuse as needed 5. Thrombocytosis: -Per hematology 6. Elevated d-dimer CTA no evidence of pulmonary emboli 7. Bilateral upper extremity DVTs: -Hold off anticoagulants at this point 08/10 #1 8. Constipation: -Bowel regimen Thank you Subjective 24 Hr Interval Summary Feels better overall. No fevers, chills, sob, congested cough, cp, palpit ations, verde, dizziness, nausea, vomiting, diarrhea, dysuria. WBC uptrending. Abdominal pain improving. No vaginal bleeding. Exam/Review of Systems Vital Signs Vitals Vital Signs Date Temp Pulse Resp B/P (MAP) Pulse Ox O2 O2 Flow FiO2 Time Delivery Rate 10/14/18 92 20:00 10/14/18 98.1 18 132/63 97 19:23 (86) 10/12/18 Room Air 03:51 Intake and Output 10/13/18 10/13/18 10/14/18 1515:00 23:00 07:00 IntakeIntake Total 750 ml 500 ml OutputOutput Total 850 ml 700 ml 1150 ml BalanceBalance -850 ml 50 ml -650 ml Exam Free Text/Dictation Constitutional: alert, oriented Psych: nl mood/affect; No anxiety Head: normocephalic, atraumatic Eyes: nl conjunctiva, EOMI, nl lids, nl sclera ENMT: nl external ears & nose, nl lips & teeth, mucosa pink and moist Neck: supple, non-tender; No jvd Respiratory: clear to auscultation, normal air movement; No labored breathing Cardiovascular: regular rate and rhythm, nl pulses Gastrointestinal: soft, distended (minimal), min tender (Left lower quadrant), other (No skin changes, bruising, discoloration) Genitourinary - Female: other (Norton, clear urine) Musculoskeletal: nl extremities to inspection Extremities: normal pulses Neurological: nl mental status, nl speech, nl strength Skin: No rash or lesions Results Result Diagram: 10/14/18 0507 10/14/18 0507 KAILEY DUMONT MD Oct 14, 2018 23:35
[2018-10-15] VITALS (10 sets, daily range): BP systolic 105–130; BP diastolic 60–75; PULSE 83–110; RESP 16–18
[2018-10-15] MEDS: ACETAMINOPHEN 325 MG TAB PO PRN ×2 (07:13→15:19)
[2018-10-15] MEDS: SENNA TAB PO SCH (09:00)
[2018-10-15] MEDS: DOCUSATE SODIUM 100 MG CAP PO SCH (09:00)
[2018-10-15] MEDS: METOPROLOL (XL) 50 MG TAB PO SCH (09:23)
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
--- NOTE | 2018-10-15 10:35 | CONS ---
Assessment/Plan Assessment/Plan Hospital Course (Demo Recall) #LUE DVT -agree with holding anticoagulation in the setting of the RP hematoma -there is very low risk for this to embolize in the lung -continue pain medication for LUE pain #Retroperitoneal hematoma - As seen on abdominal CT 10/09/18, 14.5 x 11.6 x 5.1 cm - Hold anticoagulation. - Gynecology to decide surgical vs expectant management. CT-guided needle drainage may be an option as well. #Thrombocytosis -platelets are stable around 900 -I believe this is secondary to underlying inflammation and/ or iron deficiency -will start IV iron -if the platelets do not normalize once her clinical status stabilize we can perform a hypercoagulable workup at that time Consultation Date/Type/Reason Admit Date/Time Sep 30, 2018 at 06:10 Initial Consult Date 10/10/18 Type of Consult Hematology Reason for Consultation coagulopathy Requesting Provider: SADI CHAPARRO MD Date/Time of Note DATE: 10/15/18 TIME: 10:32 24 HR Interval Summary Free Text/Dictation still with LUE pain Exam/Review of Systems Exam Vitals Vital Signs Date Temp Pulse Resp B/P (MAP) Pulse Ox O2 O2 Flow FiO2 Time Delivery Rate 10/15/18 99 08:01 10/15/18 98.1 17 117/75 98 07:27 (89) 10/12/18 Room Air 03:51 Intake and Output 10/14/18 10/14/18 10/15/18 1515:00 23:00 07:00 IntakeIntake Total 900 ml OutputOutput Total 1100 ml BalanceBalance -200 ml Constitutional: alert, oriented Psych: no complaints, nl mood/affect Head: normocephalic Eyes: nl conjunctiva Neck: supple Respiratory: clear to auscultation Cardiovascular: regular rate and rhythm Gastrointestinal: soft Extremities: other (LUE pain) Results Result Diagram: 10/15/1844810/15/18448 Results 24hrs Laboratory Tests Test 10/15/18 04:49 White Blood Count 13.5 H Red Blood Count 3.82 L Hemoglobin 11.4 L Hematocrit 35.6 L Mean Corpuscular Volume 93.2 Mean Corpuscular Hemoglobin 29.8 Mean Corpuscular Hemoglobin Concent 32.0 Red Cell Distribution Width 14.0 Platelet Count 870 H Mean Platelet Volume 8.9 Immature Granulocytes % 2.800 H Neutrophils % 65.8 Lymphocytes % 19.5 Monocytes % 7.9 Eosinophils % 3.1 Basophils % 0.9 Nucleated Red Blood Cells % 0.0 Immature Granulocytes # 0.380 H Neutrophils # 8.9 H Lymphocytes # 2.6 Monocytes # 1.1 H Eosinophils # 0.4 Basophils # 0.1 Nucleated Red Blood Cells # 0.0 Sodium Level 142 Potassium Level 4.3 Chloride Level 108 Carbon Dioxide Level 23 Anion Gap 11 Blood Urea Nitrogen 17 Creatinine 0.55 Est Glomerular Filtrat Rate mL/min > 60 Glucose Level 98 Calcium Level 9.1 Medications Medication Current Medications IV Flush (NS 3 ml) 3 ml PER PROTOCOL IV ; Start 09/30/18 at 10:00 Simethicone (Mylicon) 160 mg Q8H PRN PO .GAS Last administered on 10/03/18at 17:29; Admin Dose 160 MG; Start 09/30/18 at 10:00 Lanolin (Lanolin Hpa) 1 applic BEDSIDE MEDICATION PRN [place] .NIPPLES; Start 09/30/18 at 10:00 Methylergonovine Maleate (Methergine) 0.2 mg ONCE PRN [place] .VAGINAL BLEEDING; Start 09/30/18 at 10:00 Carboprost Tromethamine (Hemabate) 250 mcg ONCE PRN IM .VAGINAL BLEEDING; Start 09/30/18 at 10:00 Misoprostol (Cytotec) 1,000 mcg ONCE PRN [place] .VAGINAL BLEEDING; Start 09/30/18 at 10:00 Naloxone HCl (Narcan) 0.2 mg PRN PRN IV RR < 8; Start 09/30/18 at 14:30 Acetaminophen (Tylenol Tab) 500 mg Q4H PRN PO PAIN LEVEL 1-5; Start 09/30/18 at 14:30 Acetaminophen/ Hydrocodone Bitart ([place] (5/325)) 1 tab Q4H PRN PO PAIN LEVEL 1-5 Last administered on 10/11/18at 08:02; Admin Dose 1 TAB; Start 09/30/18 at 14:30 Hydromorphone HCl (Dilaudid) 0.2 mg Q4H PRN IV PAIN LEVEL 1-5; Start 09/30/18 at 14:30 Ondansetron HCl (Zofran Inj) 4 mg Q6H PRN IV NAUSEA AND/OR VOMITING; Start 09/30/18 at 14:30 Zolpidem Tartrate (Ambien) 5 mg HS MAY REPEAT X 1 PRN PO .INSOMNIA; Start 09/30/18 at 14:30 Diphenhydramine HCl (Benadryl) 25 mg Q6H PRN IV .ITCHING; Start 09/30/18 at 14:30 Acetaminophen (Tylenol Tab) 650 mg Q4H PRN PO MILD PAIN(1-3)OR ELEVATED TEMP Last administered on 10/15/18 07:13; Admin Dose 650 MG; Start 10/02/18 at 11:30 Oxycodone/ Acetaminophen (Percocet (5/ 325)) 2 tab Q4H PRN PO SEVERE PAIN LEVEL 7-10 Last administered on 10/13/18 06:46; Admin Dose 2 TAB; Start 10/02/18 at 11:30 Simethicone (Mylicon) 80 mg TID PRN PO DISTENSION/GAS/BLOATING; Start 10/02/18 at 11:30 Hydrocortisone (Proctozone-Hc) 1 applic PRN PRN [place] HEMORRHOID/EPISIOTMY PAIN Last administered on 10/03/18 17:18; Admin Dose 1 APPLIC; Start 10/03/18 at 13:00 Hydralazine HCl (Apresoline) 10 mg Q6H PRN IV ELEVATED BLOOD PRESSURE Last administered on 10/05/18 15:56; Admin Dose 10 MG; Start 10/04/18 at 12:00 Docusate Sodium (Colace) 100 mg BID PO Last administered on 10/14/18 08:12; Admin Dose 100 MG; Start 10/05/18 at 14:30 Metoprolol Succinate (Toprol Xl) 50 mg DAILY PO Last administered on 10/15/18 09:23; Admin Dose 50 MG; Start 10/07/18 at 12:00 Silver Sulfadiazine (Thermazene 1% 25 Gm) 1 applic DAILY TOP Last administered on 10/14/18 08:14; Admin Dose 1 APPLIC; Start 10/07/18 at 18:00 Senna (Senokot) 2 tab BID PO Last administered on 10/14/18 08:12; Admin Dose 2 TAB; Start 10/08/18 at 13:00 DHIRAJ PAULA M.D. Oct 15, 2018 10:35
--- NOTE | 2018-10-15 10:41 | PN ---
Date/Time of Note Date/Time of Note DATE: 10/15/18 TIME: 10:38 Assessment/Plan Lines/Catheters IV Catheter Type (from Nrs): Mid Line Norton in Place (from Nrs): No Assessment/Plan Chief Complaint/Hosp Course 1. Recent , cystorrhaphy and evacuation of uterine hematoma, Left extraperitoneal hematoma within the left pelvis extending superiorly into retrop eritoneal abdomen, 11.6 x 5 0.1 cm x 14.5 cm; ovoid fluid collection containing air bubbles with wall enhancement between left uterine body and bladder concerning for an abscess; status post CT with contrast infused and bladder> no leak; no significant change in hematoma size; H&H stable -continue monitoring -if continues to have concern for ongoing retroperitoneal bleed or infected hematoma may consider surgical intervention/IR at that point -Consider antibiotics for possible abscess> defer to gynecology and urology -Correct coagulopathy -Hold off anticoagulants 2. Vaginal bleed: No vaginal bleeding noted at this time -As above -Deferred to gynecology 3.Persistent Leukocytosis: Afebrile -per medical/ID team> further workup if persistent - As above 4. Normocytic normochromic anemia: H&H stable - Monitor and transfuse as needed 5. Thrombocytosis: -Per hematology 6. Elevated d-dimer CTA no evidence of pulmonary emboli 7. Bilateral upper extremity DVTs: -Hold off anticoagulants at this point / #1 8. Constipation: -Bowel regimen Thank you. Patient seen and examined in collaboration with Dr. Gama Mobley. Subjective 24 Hr Interval Summary Feels well. Abdominal pain improved. No overt bleeding noted. No fevers, chills, sob, congested cough, cp, palpitations, verde, dizziness, nausea, vomiting, diarrhea, dysuria. leukocytosis persistent. Exam/Review of Systems Vital Signs Vitals Vital Signs Date Temp Pulse Resp B/P (MAP) Pulse Ox O2 O2 Flow FiO2 Time Delivery Rate 10/15/18 99 08:01 10/15/18 98.1 17 117/75 98 07:27 (89) 10/12/18 Room Air 03:51 Intake and Output 10/14/18 10/14/18 10/15/18 1515:00 23:00 07:00 IntakeIntake Total 900 ml OutputOutput Total 1100 ml BalanceBalance -200 ml Exam Free Text/Dictation Constitutional: alert, oriented Psych: nl mood/affect; No anxiety Head: normocephalic, atraumatic Eyes: nl conjunctiva, EOMI, nl lids, nl sclera ENMT: nl external ears & nose, nl lips & teeth, mucosa pink and moist Neck: supple, non-tender; No jvd Respiratory: clear to auscultation, normal air movement; No labored breathing Cardiovascular: regular rate and rhythm, nl pulses Gastrointestinal: soft, distended (minimal), min tender (Left lower quadrant- much improved), other (No skin changes, bruising, discoloration) Genitourinary - Female: other (Norton, clear urine) Musculoskeletal: nl extremities to inspection Extremities: normal pulses Neurological: nl mental status, nl speech, nl strength Skin: No rash or lesions Results Result Diagram: 10/15/18 0449 10/15/18 0449 CONSUELO LUBIN NP Oct 15, 2018 10:41
--- NOTE | 2018-10-15 12:53 | PD.PPDC ---
CERTIFIED MIDWIFE Discharge Instruction Condition [id number] Patient Condition: Bbkth9d Good Diet Vpand2Sq Diet: Wacks9g Resume Regular Diet Activity/Restrictions [id number] Activity: Gbvja8l Normal Activity May Shower Bayht3Ty Restrictions: Rcasy6i No Exercising No Lifting No Driving No Sexual Activity Nothing in the Vagina No [place] No Tampons, douche Wound/Drain Care Instructions Additional Instructions: patient educated to change dressing/ wound care of her left hand Follow-up Follow-up with Physician: 1, Week/Weeks Referral Comment: f/u with kitchen cleaner for thrombocytosis/ thrombus in left upper extremity in 1 week f/u with urologist in 1 week f/u wit [facility] in 1 week Return to clinic for [id number] 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
[2018-10-15] MEDS ORDERED: SOD FERRIC GLUC COMPLX 125 MG in SOD CHLORIDE 0.9% 100 ML IVPB SCH (13:00)
[2018-10-15] MEDS: SILVER SULFADIAZINE 1% 25 GM CR TOP SCH (13:14)
[2018-10-15] MEDS ORDERED: CEFTRIAXONE 1 GM/50 ML (PMX) 50 ML IVPB ONE (16:00)
--- NOTE | 2018-10-15 16:20 | DS ---
DATE OF ADMISSION: 09/30/2018 DATE OF DISCHARGE: 10/15/2018 PRIMARY DIAGNOSES: Intrauterine at 39 weeks gestational age, previous x3, desires elective repeat delivery with bilateral tubal ligation. SECONDARY DIAGNOSES: Pelvic hematoma/maternal sinus tachycardia, thrombocytosis, venous thrombus of left upper extremity CONDITIION ON DISCHARGE STABLE DIET REGULAR ACTIVITY NO PER VAGINA, NO HEAVY LIFTING MEDICATION ON DISCHARGE: METOPROLOL, PERCOCET, IRON DISCHARGE SUMMARY: Ms. Shaylee Kearns is a 33-year-old female 4, para 4, status post repeat delivery with bilateral tubal ligation on 09/30/2018. Postoperatively, it was observed that she had hematuria in her Norton and shortly after became hypotensive. She was taken back to the operating room for exploratory laparotomy with findings of uterine hematoma evacuation and bladder tear repair. Postoperatively, it was observed that she had sinus tachycardia, which space studies faculty member had been following up and was started on Metoprolol, which significantly improved her tachycardia. It was also observed that she has increasing platelet/thrombocytosis where she was seen by hematology with most likely indication with most likely findings consistent with her recent surgery. On postop day approximately #7 or 8, the patient was complaining of lower abdominal pain where a CT scan confirms positive retroperitoneal hematoma where surgery was consulted and agrees that she should be monitored closely. Her hemoglobin and hematocrit and vital signs have been stable. She is currently postop day #14. She denies any headache, nausea, vomiting, shortness of breath, visual changes or epigastric pain. Patient will be discharged home pending cleared by all the consultants in the past. She will follow up in the office in 1 week and follow up with hematology and urology in 1 week also. Dictated By: SADI DIOR/NTS Conf#: [id number] DID#: [id number] CC: SADI CHAPARRO MD;*EndCC* MTDD
--- NOTE | 2018-10-15 16:26 | CONS ---
Assessment/Plan Assessment/Plan Hospital Course (Demo Recall) No acute changes overnight patient is alert looks comfortable she is complaining of pain with urination at the end of urination no fevers. Urine culture from yesterday grew strep agalactiae 10-20,000 colonies WBC 13.5 platelets 870 no shift no bands BUN 17 creatinine 0.55 physical examination: Is a well-developed obese middle-aged woman who is alert in no distress head atraumatic normocephalic sclera nonicteric vehicle mucosa pink neck is supple chest rise symmetrical breath sounds diminished bases heart S1-S2 abdomen soft bowel sounds present lower abdominal incision with Steri-Stri ps clean dry and intact extremities without cyanosis Assessment: 1. Systemic inflammatory response syndrome 2. Urinary tract infection 3. 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, we will will give her a dose of Rocephin and sent her on oral amoxicillin for 4-5 days given her dysuria Consultation Date/Type/Reason Admit Date/Time Sep 30, 2018 at 06:10 Initial Consult Date 10/10/18 Type of Consult id Requesting Provider: SADI CHAPARRO MD Date/Time of Note DATE: 10/15/18 TIME: 16:26 Exam/Review of Systems Exam Vitals Vital Signs Date Temp Pulse Resp B/P (MAP) Pulse Ox O2 O2 Flow FiO2 Time Delivery Rate 10/15/18 98.1 83 18 130/75 99 15:38 (93) 10/12/18 Room Air 03:51 Intake and Output 10/14/18 10/14/18 10/15/18 1515:00 23:00 07:00 IntakeIntake Total 900 ml OutputOutput Total 1100 ml BalanceBalance -200 ml Results Result Diagram: 10/15/18 0449 10/15/18 044 Results 24hrs Laboratory Tests Test 10/15/18 04:49 White Blood Count 13.5 H Red Blood Count 3.82 L Hemoglobin 11.4 L Hematocrit 35.6 L Mean Corpuscular Volume 93.2 Mean Corpuscular Hemoglobin 29.8 Mean Corpuscular Hemoglobin Concent 32.0 Red Cell Distribution Width 14.0 Platelet Count 870 H Mean Platelet Volume 8.9 Immature Granulocytes % 2.800 H Neutrophils % 65.8 Lymphocytes % 19.5 Monocytes % 7.9 Eosinophils % 3.1 Basophils % 0.9 Nucleated Red Blood Cells % 0.0 Immature Granulocytes # 0.380 H Neutrophils # 8.9 H Lymphocytes # 2.6 Monocytes # 1.1 H Eosinophils # 0.4 Basophils # 0.1 Nucleated Red Blood Cells # 0.0 Sodium Level 142 Potassium Level 4.3 Chloride Level 108 Carbon Dioxide Level 23 Anion Gap 11 Blood Urea Nitrogen 17 Creatinine 0.55 Est Glomerular Filtrat Rate mL/min > 60 Glucose Level 98 Calcium Level 9.1 Medications Medication Current Medications IV Flush (NS 3 ml) 3 ml PER PROTOCOL IV ; Start 09/30/18 at 10:00 Simethicone (Mylicon) 160 mg Q8H PRN PO .GAS Last administered on 10/03/18at 17:29; Admin Dose 160 MG; Start 09/30/18 at 10:00 Lanolin (Lanolin Hpa) 1 applic BEDSIDE MEDICATION PRN TOP .NIPPLES; Start 09/30/18 at 10:00 Methylergonovine Maleate (Methergine) 0.2 mg ONCE PRN IM .VAGINAL BLEEDING; Start 09/30/18 at 10:00 Carboprost Tromethamine (Hemabate) 250 mcg ONCE PRN IM .VAGINAL BLEEDING; Start 09/30/18 at 10:00 Misoprostol (Cytotec) 1,000 mcg ONCE PRN DC .VAGINAL BLEEDING; Start 09/30/18 at 10:00 Naloxone HCl (Narcan) 0.2 mg PRN PRN IV RR < 8; Start 09/30/18 at 14:30 Acetaminophen (Tylenol Tab) 500 mg Q4H PRN PO PAIN LEVEL 1-5; Start 09/30/18 at 14:30 Acetaminophen/ Hydrocodone Bitart ([place] (5/325)) 1 tab Q4H PRN PO PAIN LEVEL 1-5 Last administered on 10/11/18at 08:02; Admin Dose 1 TAB; Start 09/30/18 at 14:30 Hydromorphone HCl (Dilaudid) 0.2 mg Q4H PRN IV PAIN LEVEL 1-5; Start 09/30/18 at 14:30 Ondansetron HCl (Zofran Inj) 4 mg Q6H PRN IV NAUSEA AND/OR VOMITING; Start at 14:30 Zolpidem Tartrate (Ambien) 5 mg HS MAY REPEAT X 1 PRN PO .INSOMNIA; Start 09/30/18 at 14:30 Diphenhydramine HCl (Benadryl) 25 mg Q6H PRN IV .ITCHING; Start 09/30/18 at 14:30 Acetaminophen (Tylenol Tab) 650 mg Q4H PRN PO MILD PAIN(1-3)OR ELEVATED TEMP Last administered on 10/15/18 15:19; Admin Dose 650 MG; Start 10/02/18 at 11:30 Oxycodone/ Acetaminophen (Percocet (5/ 325)) 2 tab Q4H PRN PO SEVERE PAIN LEVEL 7-10 Last administered on 10/13/18 06:46; Admin Dose 2 TAB; Start 10/02/18 at 11:30 Simethicone (Mylicon) 80 mg TID PRN PO DISTENSION/GAS/BLOATING; Start 10/02/18 at 11:30 Hydrocortisone (Proctozone-Hc) 1 applic PRN PRN DC HEMORRHOID/EPISIOTMY PAIN Last administered on 10/03/18 17:18; Admin Dose 1 APPLIC; Start 10/03/18 at 13:00 Hydralazine HCl (Apresoline) 10 mg Q6H PRN IV ELEVATED BLOOD PRESSURE Last administered on 10/05/18 15:56; Admin Dose 10 MG; Start 10/04/18 at 12:00 Docusate Sodium (Colace) 100 mg BID PO Last administered on 10/14/18 08:12; Admin Dose 100 MG; Start 10/05/18 at 14:30 Metoprolol Succinate (Toprol Xl) 50 mg DAILY PO Last administered on 10/15/18 09:23; Admin Dose 50 MG; Start 10/07/18 at 12:00 Silver Sulfadiazine (Thermazene 1% 25 Gm) 1 applic DAILY TOP Last administered on 10/15/18 13:14; Admin Dose 1 APPLIC; Start 10/07/18 at 18:00 Senna (Senokot) 2 tab BID PO Last administered on 10/14/18 08:12; Admin Dose 2 TAB; Start 10/08/18 at 13:00 Ferric Sodium Gluconate Complex 125 mg/Sodium Chloride 110 ml @ 110 mls/hr DAILY@1300 IVPB Last administered on 4/9/19at 13:14; Admin Dose 110 MLS/HR; Start 10/15/18 at 13:00; Stop 10/19/18 at 13:59 Ceftriaxone Sodium 50 ml @ 100 mls/hr ONCE ONCE IVPB Last administered on 10/15/18at 16:10; Admin Dose 100 MLS/HR; Start 10/15/18 at 16:00; Stop 10/15/18 at 16:29 MIRNA ADAM NP Oct 15, 2018 16:26
[2018-10-15] MEDS: OXYCODONE/ACETAMINOPHEN (5/325) TAB PO PRN (18:28)
== END 2018-10-15 19:20 | disposition home or self-care (01) | DRG 783 ==
LOC: L-D 06:10 → ICU 14:06 → 6WM 10-01 20:29
PROVIDERS: ADMIT Obstetrics & Gynecology; ATTEND Obstetrics & Gynecology
PROC: 0UB70ZZ Excision of Bilateral Fallopian Tubes, Open Approach (ICD-10-PCS; 2018-09-30)
PROC: 0TQB0ZZ Repair Bladder, Open Approach (ICD-10-PCS; 2018-09-30)
PROC: 0U940ZZ Drainage of Uterine Supporting Structure, Open Approach (ICD-10-PCS; 2018-09-30)
PROC: 30233N1 Transfusion of Nonautologous Red Blood Cells into Peripheral Vein, Percutaneous Approach (ICD-10-PCS; 2018-09-30)
PROC: 10D00Z1 Extraction of Products of Conception, Low, Open Approach (ICD-10-PCS; principal; 2018-09-30 07:30)
PROC: 4A133R1 Monitoring of Arterial Saturation, Peripheral, Percutaneous Approach (ICD-10-PCS; 2018-10-01)
DX: O34.219 Maternal care for unspecified type scar from previous cesarean delivery (principal); K66.1 Hemoperitoneum; N99.820 Postprocedural hemorrhage of a genitourinary system organ or structure following a genitourinary system procedure; I82.612 Acute embolism and thrombosis of superficial veins of left upper extremity; N99.71 Accidental puncture and laceration of a genitourinary system organ or structure during a genitourinary system procedure; O87.0 Superficial thrombophlebitis in the puerperium; O99.13 Other diseases of the blood and blood-forming organs and certain disorders involving the immune mechanism complicating the puerperium; O86.20 Urinary tract infection following delivery, unspecified; O75.4 Other complications of obstetric surgery and procedures; D47.3 Essential (hemorrhagic) thrombocythemia; D72.829 Elevated white blood cell count, unspecified; O99.63 Diseases of the digestive system complicating the puerperium; K59.00 Constipation, unspecified; O90.81 Anemia of the puerperium; O99.824 Streptococcus B carrier state complicating childbirth; D50.0 Iron deficiency anemia secondary to blood loss (chronic); Z3A.39 39 weeks gestation of pregnancy; Z37.0 Single live birth; F41.9 Anxiety disorder, unspecified; R00.0 Tachycardia, unspecified; Z30.2 Encounter for sterilization
CPT/HCPCS: 36430; 36600; 71045; 71275; 74176; 74177; 76536; 80048; 80053; 81001; 82803; 83540; 83735; 84100; 84484; 85025; 85378; 85610; 85730; 86592; 86850; 86900; 86901; 86920; 87086; 87340; 88302; 93005; 93970; 97116; 97161; 97530; 99464; J0360; J0690; J0696; J0744; J1100; J1170; J1650; J1885; J2270; J2274; J2405; J2590; J2765; J2795; J2916; J3010; J7040; J7120; P9016; P9047; Q9967; Q9968